=== PATIENT | female | born 1990 | race Caucasian/White ===

== ENCOUNTER 2020-10-18 15:09 | Outpatient (REF) | payer OTHER, SELFPAY ==
--- NOTE | 2020-10-18 15:28 | XR_ITS ---
EXAMINATION:XR foot RT min 3V VIEWS ACQUIRED: Frontal lateral and oblique CLINICAL INFORMATION: Reason for Exam M79.673 - Pain in right foot COMPARISON: None available at the time of this dictation. FINDINGS: There is no evidence of acute fracture or dislocation. Intertarsal, tarsometatarsal, metatarsophalangeal and interphalangeal joints are intact. Surrounding soft tissues is normal. , There is a small inferior calcaneal spur. XR/XR foot RT min 3V IMPRESSION: Small inferior calcaneal spur, x-ray otherwise normal.
== END 2020-10-18 15:10 | disposition home or self-care (01) ==
LOC: HO.HMGCX 15:09
PROVIDERS: PCP Internal Medicine; Visit Provider Internal Medicine
DX: M79.671 Pain in right foot (principal)
CPT/HCPCS: 73630

== ENCOUNTER 2020-12-31 14:00 | Emergency (ER) | payer OTHER, SELFPAY ==
--- NOTE | ~2020-12-31 | XR_ITS ---
EXAMINATION: CHEST 2 VIEWS CLINICAL INFORMATION: pt c dizziness, blurry vision left body numbness . COMPARISON: No recent pertinent prior studies are available for comparison. TECHNIQUE: PA and lateral views of the chest obtained. FINDINGS: The lungs are well expanded. No focal infiltrate, effusion, edema, or pneumothorax. Cardiac and mediastinal silhouettes are within normal limits for technique. No acute bony abnormality seen XR/XR chest 2V IMPRESSION: No evidence of acute disease
--- NOTE | ~2020-12-31 | CT_ITS ---
EXAMINATION: CT HEAD WITHOUT CONTRAST CLINICAL INFORMATION: Dizziness. Blurred vision. Numbness left side of body COMPARISON: None TECHNIQUE: Contiguous axial imaging was performed from the skull base to vertex without intravenous administration of contrast. Coronal and sagittal reformatted images are performed at CT scanner This CT examination was performed using dose optimization techniques as appropriate, variously including the following: *Automated exposure control *Adjustment of mA and/or kV according to patient size (this includes techniques or standardized protocols for targeted exams where dose is matched to indication/reason for exam; i.e. extremities or head) *Use of iterative reconstruction technique DLP: 665 mGy-cm FINDINGS: There is no evidence of acute intracranial hemorrhage or territorial infarction. No abnormal mass effect or midline shift is seen. Bridges to white matter differentiation is well preserved. No extra-axial fluid collections are identified. The ventricles are normal in size. There is no abnormal attenuation within the brain parenchyma. The osseous structures and soft tissues are normal. The mastoid air cells and visualized portions of the paranasal sinuses are well aerated. CT/CT head/brain wo con IMPRESSION: No acute intracranial pathology.
[2020-12-31 15:08] VITALS: BP 104/72; PULSE 58; RESP 18; TEMP 36.9; O2SAT 100; BMI 34.4
[2020-12-31 16:05] LABS: MANUAL DIFF FLAG NO
[2020-12-31 16:07] LABS: Glucose Urine UA NEG (NEG); Leukocyte Esterase Urine NEG (NEG); Nitrite Urine NEG (NEG); PH 6.5 (5.0-8.0); Specific Gravity - Urine 1.015 (1.005-1.025); Urine Blood 3+ (NEG); Urine Ketones 15 MG/DL (NEG); Urine Protein NEG (NEG-TRACE)
[2020-12-31 16:09] LABS: Basophils Percent Auto 0.6 % (0-2); Eosinophils Absolute Auto 0.4 X10*3/uL (0.0-0.4); Eosinophils Percent Auto 6.1 % (0-4); Hematocrit 41.1 % (37-47); Hemoglobin 13.8 g/dl (12.0-16.0); Imm Gran Abs Auto 0.01 X10*3/uL (0.00-0.03); Imm Gran Pct Auto 0.2 % (0.0-0.4); Lymphocytes Absolute Auto 2.3 X10*3/uL (1.2-4.9); Lymphocytes Percent Auto 36.5 % (20-40); Mean Corpuscular HGB Conc 33.6 g/dl (31.0-35.0); Mean Corpuscular Hemoglobin 30.5 pg (27.0-33.0); Mean Corpuscular Volume 90.7 fL (80-98); Mean Platelet Volume 9.4 fL (9.4-12.3); Monocytes Absolute Auto 0.5 X10*3/uL (0.1-1.2); Monocytes Percent Auto 8.3 % (2-11); Neutrophils Absolute Auto 3.1 X10*3/uL (2.0-8.3); Neutrophils Percent Auto 48.3 % (45-73); Platelet Count 353 X10*3/uL (160-400); Red Blood Count 4.53 X10*6/uL (4.20-5.50); Red Cell Distribution Width 11.8 % (11.0-16.0); White Blood Count 6.4 X10*3/uL (4.8-10.8)
[2020-12-31 16:13] LABS: Appearance Urine CLEAR; Color Urine YELLOW
[2020-12-31 16:14] LABS: UPreg QC Valid YES; Urine Pregnancy NEGATIVE (NEGATIVE)
[2020-12-31 16:21] LABS: Bacteria Urine TRACE /LPF; Mucus Urine TRACE /LPF; RBC Urine 30-49 /HPF (0); Squamous Epithelial Cell Urine TRACE /LPF; WBC Urine 0-2 /HPF (0-4)
[2020-12-31 16:33] LABS: Anion Gap 14 (12-20); Blood Urea Nitrogen 8 mg/dL (9-16); Calcium 9.4 mg/dL (8.4-10.2); Carbon Dioxide 25 mmol/L (22-29); Chloride 106 mmol/L (96-108); Creatinine Clr Calc Pharmacy 132.9; Estimated Glomerular Filt Rate > 60; Glucose Random 96 mg/dL (60-115); Sodium 141 mmol/L (135-145)
[2020-12-31 17:50] VITALS: BP 109/62; PULSE 60; RESP 18; TEMP 37; O2SAT 99
[2020-12-31 18:23] LABS: INTERNATIONAL NORM RATIO 1.1 (0.9-1.1); Prothrombin Time 12.9 SEC (10.8-13.0)
[2020-12-31] MEDS: Meclizine HCl 25 MG TABLET 50 MG PO (18:36)
[2020-12-31 18:48] LABS: Alanine Aminotransferase 43 U/L (0-31); Albumin Level 4.2 g/dL (3.5-5.0); Alkaline Phosphatase 47 U/L (39-117); Aspartate Amino Transferase 23 U/L (5-31); Bilirubin Direct 0.2 mg/dL (0.0-0.5); Bilirubin Total 0.6 mg/dL (0.0-1.0); Magnesium 1.9 mg/dL (1.6-2.6)
[2020-12-31 18:51] LABS: Troponin-I High Sensitivity < 3.5 ng/L (<3.5-17.0)
--- NOTE | 2020-12-31 20:04 | ED_ITS ---
HPI - Dizziness General Chief Complaint: Dizziness Stated Complaint: BLURRED VISION DIZZY L SIDE NUMBNESS Time Seen by Provider: 12/31/20 17:34 Source: patient Mode of arrival: ambulatory Limitations: no limitations History of Present Illness HPI Narrative: 30-year-old female with a past medical history of anxiety d isorder and obesity presenting to the ED with complaints of dizziness that started approximately 07:00 with associated blurry vision and left-sided body numbness. Patient reports that the blurry vision and the left-sided body numbness has resolved although she continues to have the dizziness where she feels like she is spinning and the room is completely spinning. She denies any family history of sudden /mi or CVA before the age of 40 to 50 years old. MD elicited complaint: dizziness Onset (ago): hour(s) (Since 07:00 this morning) Timing: gradual onset Severity: moderate Description: sense of movement (Patient feels that she is spinning) and room spinning History of similar symptoms: No Exacerbating factors: movement/ambulation, change in body position, standing and other (Changing head position) Relieving factors: remaining still, rest, lying down and keeping eyes closed Associated neuro symptoms: vision changes (Blurry vision) and other (Left-sided body numbness) Stroke scale total: 0 Related Data Previous Rx's Medication Instructions Recorded desonide 0.05 % topical ointment 1 appl TOPICAL BID 30 Days #60 g 09/14/20 ketorolac 10 mg PO Q8H PRN #10 tab 12/31/20 meclizine 25 mg PO DAILY PRN #10 tab 12/31/20 ondansetron HCl [Zofran] 4 mg PO Q8H PRN #14 tab 12/31/20 oxycodone 5 mg PO BID PRN #10 tab 12/31/20 Allergies Allergy/AdvReac Type Severity Reaction Status Date / Time FRUIT Allergy Mild ITCHING OF Uncoded 12/03/20 17:20 LIPS AND TONGUE, ONLY SOME FRUITS Review of Systems Review of Systems: Constitutional : No Fever, No Chills, No Night Sweats, No Fatigue, No Malaise ENT/Mouth : No Ear Pain, No Nasal Congestion, No Sinus Pain, No sore throat, No Rhinorrhea Eyes: + Blurry Vision, No Eye Pain, No Swelling, No Redness, No Foreign Body, No Discharge Cardiovascular : No Chest Pain, No SOB, No Dyspnea on Exertion, No Orthopnea, No Palpitations Respiratory : No Cough, No Sputum, No Wheezing, No Dyspnea Gastrointestinal : No Nausea, No Vomiting, No Diarrhea, No Constipation, No abdominal Pain, No Hematochezia, No Melena Genitourinary : No Dysuria, No Urinary Frequency, No Urinary Incontinence, No Urgency, No Flank Pain Musculoskeletal : No joint pain, No Myalgias Skin : No lacerations Neuro : + Dizziness, + Numbness, No Focal weakness, No Loss of Consciousness, No Headache Yes all other systems are reviewed and are negative [facility] Past Medical History Attestation statement: The following information was validated with the patient. Medical History Breast cancer screening by mammogram Ductal candidiasis of breast Eczema Obesity Rash and nonspecific skin eruption Rash on lips Surgical History History of cholecystectomy History of lipoma Family History Family History Father Diabetes Hypertension Mother Medical history unknown Maternal Grandfather Stroke Social History Social History Alcohol intake: current Alcohol intake frequency: a few times a month Smoking Status: Former smoker Smoked in Last 30 Days: No Use of substances other than those prescribed or required for medical reasons: No Advance Directives: No Advance Directives Information Provided: No Physical Exam Vital Signs: Vital Signs: Last Vital Signs Temp 98.6 F 12/31/20 17:50 Pulse 60 12/31/20 17:50 Resp 18 12/31/20 17:50 BP 109/62 12/31/20 17:50 Pulse Ox 99 12/31/20 17:50 Body Mass Index 34.4 Vital signs have been reviewed as normal and appeared to be correct. Blood pressure normal. Heart rate normal. Respiration rate normal. Temperature normal. Oxygen saturation normal. Appearance: Alert. Oriented X3. No acute distress. Head: Normal external exam. Normocephalic. Atraumatic. Able to rotate head princess aterally. Eyes: PERRLA. EOMI. No nystagmus noted. Conjunctiva and sclera normal. Eyelids normal. Corneal reflex normal. ENT: EAC normal. TM's Normal. Hearing normal. Pharynx normal. Uvula midline. tongue midline. Moist mucous membranes. No trismus noted. No drooling noted. No muffled voice noted. No nystagmus noted. Neck: Normal inspection. Neck supple. FROM. No adenopathy. Trachea midline. Thyroid Normal. No meningeal signs. No neck mass noted. CVS: Normal heart rate and rhythm. Heart sound normal. No murmurs noted. Pulses normal throughout. Respiratory: No respiratory distress. Painless inspiration. Breath sounds normal. No wheezes/rales/rhonchi noted. Chest nontender. No accessory muscle usage noted or decreased air movement noted. Abdomen: Soft and nontender. Bowel sounds normal in all 4 quadrants. No distention noted. No organomegaly noted. No visible injury noted. Back: No CVA tenderness. Full range of motion noted. Skin: Skin warm and dry. Normal skin color. Normal skin turgor. No rashes/lesions/lacerations noted. Extremities: No lower extremity edema. Extremities exhibit normal range of motion. Extremities nontender. Able to shrug shoulders bilaterally and keep up against resistance. Neuro: Oriented X 3. No motor deficit. No sensory deficit. Reflexes normal. Moving all extremities. No focal motor deficits. Cranial nerves II-XI intact bilaterally. Facial strength normal. Normal cognition. Speech normal. Gait normal. Strength 5/5 throughout. No pronator drift. No tremor noted. No fasciculations noted. No rigidity noted. Muscle tone normal throughout. No asterixis noted. [id number] test normal. Heel to jauregui test normal. Tandem gait normal. Does not sway with eyes open. Romberg test negative. Rapid alternating movement upper extremity normal. Rapid alternating movement lower extremity normal. Hand drop from overhead Misses face. NIHSS score 0. NIH Stroke Scale Internal: Initial- Upon Arrival Time: 17:50 Level of Consciousness: Alert Level of Consciousness Questions: Answers both questions correctly Level of Consciousness Commands: Performs both tasks correctly Best Gaze: Normal Visual: No visual loss Facial Palsy: Normal Motor Arm (Right): No drift Motor Arm (Left): No drift Motor Leg (Right): No drift Motor Leg (Left): No drift Limb Ataxia: Absent Sensory: Normal Best Language: No aphasia Dysarthia: Normal Extinction and Inattention: No abnormality Score: 0 Course Course Course Narrative: 17:50pm - 30-year-old female with a past medical history of anxiety disorder and obesity presenting to the ED with complaints of dizziness that started approximately 07:00 with associated blurry vision and left-sided body numbness. - on exam patient is alert and oriented x3. On any acute distress. Vital signs are stable within normal limits. No focal neuro deficits are noted. NIH SS score 0. No focal neuro deficits are noted and patient has non disabling symp toms and symptoms started at approximately 07:00 therefore no tPA indicated at this time. Lungs clear to auscultation. CV RRR. Abdomen soft and nontender. - Plan: Labs, EKG, orthostatic vitals, CT scan of brain, chest x-ray provided 50 mg of Antivert and re-evaluate. Reevaluation(s) Reevaluation #1: - all labs within normal limits. UA within normal limits no evidence of UTI. UHCG negative for . - EKG sinus bradycardia with a ventricular rate of 48 with a normal SD interval normal QRS duration normal QT/QTC interval. No acute ischemic changes noted. - chest x-ray within normal limits no acute processes noted. - pending CT scan of brain without contrast. Will re-evaluate. Time: 20:13 Reevaluation #2: - CT scan of brain within normal limits no acute processes noted. - the patient was upset with her care reported that she asked the nurse multiple times for something for her headache although the nurse did not tell me that she wanted something for her headache therefore went back into the room and explained to her what I can do to make her time here in the emergency department any better if any IV fluids or anything to eat and patient was just very adamant that she wanted to leave. The nurse also reported to me that the nancy ent has been declining orthostatic vitals. She reports her dizziness was not better after the meclizine although patient again has a normal steady gait and no focal neuro deficits are noted. No disabling symptoms. - therefore will DC home with symptomatic treatment along with instructions return if any new or worsening symptoms to follow up with primary care provider. Patient understands agrees the plan. Time: 21:08 MDM - Dizziness Differential Diagnosis Differential diagnosis: Likely benign paroxysmal positional vertigo, orthostatic hypotension, cerebrovascular accident and transient cerebral ischemia Medical Records Attestation: I reviewed the patient's medical records. Lab Data Attestation: I reviewed the patient's lab results. Result diagrams: 12/31/20 15:59 12/31/20 16:00 Labs: Lab Results 12/31/20 12/31/20 12/31/20 Range/Units 15:59 16:00 16:00 WBC 6.4 (4.8-10.8) X10*3/uL RBC 4.53 (4.20-5.50) X10*6/uL Hgb 13.8 (12.0-16.0) g/dl Hct 41.1 (37-47) % MCV 90.7 (80-98) fL MCH 30.5 (27.0-33.0) pg MCHC 33.6 (31.0-35.0) g/dl RDW 11.8 (11.0-16.0) % Plt Count 353 (160-400) X10*3/uL MPV 9.4 (9.4-12.3) fL Immature Gran % (Auto) 0.2 (0.0-0.4) % Neut % (Auto) 48.3 (45-73) % Lymph % (Auto) 36.5 (20-40) % [place] % (Auto) 8.3 (2-11) % Eos % (Auto) 6.1 H (0-4) % Baso % (Auto) 0.6 (0-2) % Lymph # (Auto) 2.3 (1.2-4.9) X10*3/uL [place] # (Auto) 0.5 (0.1-1.2) X10*3/uL Eos # (Auto) 0.4 (0.0-0.4) X10*3/uL Baso # (Auto) 0.0 (0.0-0.2) X10*3/uL Abs Immat Gran (auto) 0.01 (0.00-0.03) X10*3/uL Absolute Neuts (auto) 3.1 (2.0-8.3) X10*3/uL Absolute Nucleated RBC 0.000 (0.0-0.012) X10*3/uL Nucleated RBC % (auto) 0.0 (0.0-0.2) /100WBC PT (10.8-13.0) SEC INR (0.9-1.1) Sodium 141 (135-145) mmol/L Potassium 4.0 (3.3-5.1) mmol/L Chloride 106 (96-108) mmol/L Carbon Dioxide 25 (22-29) mmol/L Anion Gap 14 (12-20) BUN 8 L (9-16) mg/dL Creatinine 0.72 (0.5-1.4) mg/dL Estim Creat Clear Calc 132.9 Estimated GFR > 60 Random Glucose 96 (60-115) mg/dL Calcium 9.4 (8.4-10.2) mg/dL Magnesium (1.6-2.6) mg/dL Total Bilirubin (0.0-1.0) mg/dL Direct Bilirubin (0.0-0.5) mg/dL AST (5-31) U/L ALT (0-31) U/L Alkaline Phosphatase (39-117) U/L Troponin I High Sens (<3.5-17.0) ng/L Total Protein (6.5-8.0) g/dL Albumin (3.5-5.0) g/dL Urine Color YELLOW Urine Appearance CLEAR Urine pH 6.5 (5.0-8.0) Ur Specific Kimberly 1.015 (1.005-1.025) Urine Protein NEG (NEG-TRACE) MG/DL Urine Glucose (UA) NEG (NEG) MG/DL Urine Ketones 15 (NEG) MG/DL Urine Blood 3+ H (NEG) Urine Nitrite NEG (NEG) Ur Leukocyte Esterase NEG (NEG) Urine RBC 30-49 H (0) /HPF Urine WBC 0-2 (0-4) /HPF Ur Squamous Epith Cells TRACE /LPF Urine Bacteria TRACE /LPF Urine Mucus TRACE /LPF Urine Test (NEGATIVE) 12/31/20 12/31/20 12/31/20 Range/Units 16:00 18:05 18:05 WBC (4.8-10.8) X10*3/uL RBC (4.20-5.50) X10*6/uL Hgb (12.0-16.0) g/dl Hct (37-47) % MCV (80-98) fL MCH (27.0-33.0) pg MCHC (31.0-35.0) g/dl RDW (11.0-16.0) % Plt Count (160-400) X10*3/uL MPV (9.4-12.3) fL Immature Gran % (Auto) (0.0-0.4) % Neut % (Auto) (45-73) % Lymph % (Auto) (20-40) % [place] % (Auto) (2-11) % Eos % (Auto) (0-4) % Baso % (Auto) (0-2) % Lymph # (Auto) (1.2-4.9) X10*3/uL [place] # (Auto) (0.1-1.2) X10*3/uL Eos # (Auto) (0.0-0.4) X10*3/uL Baso # (Auto) (0.0-0.2) X10*3/uL Abs Immat Gran (auto) (0.00-0.03) X10*3/uL Absolute Neuts (auto) (2.0-8.3) X10*3/uL Absolute Nucleated RBC (0.0-0.012) X10*3/uL Nucleated RBC % (auto) (0.0-0.2) /100WBC PT (10.8-13.0) SEC INR (0.9-1.1) Sodium (135-145) mmol/L Potassium (3.3-5.1) mmol/L Chloride (96-108) mmol/L Carbon Dioxide (22-29) mmol/L Anion Gap (12-20) BUN (9-16) mg/dL Creatinine (0.5-1.4) mg/dL Estim Creat Clear Calc Estimated GFR Random Glucose (60-115) mg/dL Calcium (8.4-10.2) mg/dL Magnesium 1.9 (1.6-2.6) mg/dL Total Bilirubin 0.6 (0.0-1.0) mg/dL Direct Bilirubin 0.2 (0.0-0.5) mg/dL AST 23 (5-31) U/L ALT 43 H (0-31) U/L Alkaline Phosphatase 47 (39-117) U/L Troponin I High Sens < 3.5 (<3.5-17.0) ng/L Total Protein 7.0 (6.5-8.0) g/dL Albumin 4.2 (3.5-5.0) g/dL Urine Color Urine Appearance Urine pH (5.0-8.0) Ur Specific Kimberly (1.005-1.025) Urine Protein (NEG-TRACE) MG/DL Urine Glucose (UA) (NEG) MG/DL Urine Ketones (NEG) MG/DL Urine Blood (NEG) Urine Nitrite (NEG) Ur Leukocyte Esterase (NEG) Urine RBC (0) /HPF Urine WBC (0-4) /HPF Ur Squamous Epith Cells /LPF Urine Bacteria /LPF Urine Mucus /LPF Urine Test NEGATIVE (NEGATIVE) 12/31/20 Range/Units 18:05 WBC (4.8-10.8) X10*3/uL RBC (4.20-5.50) X10*6/uL Hgb (12.0-16.0) g/dl Hct (37-47) % MCV (80-98) fL MCH (27.0-33.0) pg MCHC (31.0-35.0) g/dl RDW (11.0-16.0) % Plt Count (160-400) X10*3/uL MPV (9.4-12.3) fL Immature Gran % (Auto) (0.0-0.4) % Neut % (Auto) (45-73) % Lymph % (Auto) (20-40) % [place] % (Auto) (2-11) % Eos % (Auto) (0-4) % Baso % (Auto) (0-2) % Lymph # (Auto) (1.2-4.9) X10*3/uL [place] # (Auto) (0.1-1.2) X10*3/uL Eos # (Auto) (0.0-0.4) X10*3/uL Baso # (Auto) (0.0-0.2) X10*3/uL Abs Immat Gran (auto) (0.00-0.03) X10*3/uL Absolute Neuts (auto) (2.0-8.3) X10*3/uL Absolute Nucleated RBC (0.0-0.012) X10*3/uL Nucleated RBC % (auto) (0.0-0.2) /100WBC PT 12.9 (10.8-13.0) SEC INR 1.1 (0.9-1.1) Sodium (135-145) mmol/L Potassium (3.3-5.1) mmol/L Chloride (96-108) mmol/L Carbon Dioxide (22-29) mmol/L Anion Gap (12-20) BUN (9-16) mg/dL Creatinine (0.5-1.4) mg/dL Estim Creat Clear Calc Estimated GFR Random Glucose (60-115) mg/dL Calcium (8.4-10.2) mg/dL Magnesium (1.6-2.6) mg/dL Total Bilirubin (0.0-1.0) mg/dL Direct Bilirubin (0.0-0.5) mg/dL AST (5-31) U/L ALT (0-31) U/L Alkaline Phosphatase (39-117) U/L Troponin I High Sens (<3.5-17.0) ng/L Total Protein (6.5-8.0) g/dL Albumin (3.5-5.0) g/dL Urine Color Urine Appearance Urine pH (5.0-8.0) Ur Specific Kimberly (1.005-1.025) Urine Protein (NEG-TRACE) MG/DL Urine Glucose (UA) (NEG) MG/DL Urine Ketones (NEG) MG/DL Urine Blood (NEG) Urine Nitrite (NEG) Ur Leukocyte Esterase (NEG) Urine RBC (0) /HPF Urine WBC (0-4) /HPF Ur Squamous Epith Cells /LPF Urine Bacteria /LPF Urine Mucus /LPF Urine Test (NEGATIVE) Imaging Data Chest x-ray: Attestation: I personally reviewed and interpreted this imaging study as follows: Radiologist's impression: FINDINGS: The lungs are well expanded. No focal infiltrate, effusion, edema, or pneumothorax. Cardiac and mediastinal silhouettes are within normal limits for technique. No acute bony abnormality seen XR/XR chest 2V IMPRESSION: No evidence of acute disease CT scan of brain without contrast: Attestation: I personally reviewed and interpreted this imaging study as follows: Radiologist's impression: FINDINGS: There is no evidence of acute intracranial hemorrhage or territorial infarction. No abnormal mass effect or midline shift is seen. Bridges to white matter differentiation is well preserved. No extra-axial fluid collections are identified. The ventricles are normal in size. There is no abnormal attenuation within the brain parenchyma. The osseous structures and soft tissues are normal. The mastoid air cells and visualized portions of the paranasal sinuses are well aerated. CT/CT head/brain wo con IMPRESSION: No acute intracranial pathology. ECG Data Attestation: I personally reviewed and interpreted this ECG as follows: ECG interpretation date: 12/31/20 ECG interpretation time: 18:06 Interpretation: EKG sinus bradycardia with a ventricular rate of 48 with a normal SD interval normal QRS duration normal QT/QTC interval. No acute ischemic changes noted. Critical Care Time Critical Care Time Critical Care Time: Yes Total Critical Care Time: 60 Attestation: I personally attest to this time spent taking care of the patient Discharge Plan Discharge Clinical Impression: Dizziness Patient Disposition: Home, Self-Care Instructions: Benign Paroxysmal Positional Vertigo (ED), Dizziness (ED) Prescriptions: New ondansetron HCl [Zofran] 4 mg tablet 4 mg PO Q8H PRN (Reason: nausea and vomiting) Qty: 14 RF: 0 ketorolac 10 mg tablet 10 mg PO Q8H PRN (Reason: pain) Qty: 10 RF: 0 meclizine 25 mg tablet 25 mg PO DAILY PRN (Reason: dizziness) Qty: 10 RF: 0 oxycodone 5 mg tablet 5 mg PO BID PRN (Reason: pain) Qty: 10 RF: 0 No Action desonide 0.05 % ointment 1 appl topical BID 30 Days Qty: 60 RF: 11 Referrals: Raquel Sousa MD [Primary Care Provider] - 2 days Stand Alone Forms: Work/School Release Print Language: Yoruba
[2020-12-31] MEDS: Ketorolac Tromethamine 30 MG/ML VIAL IM (21:00)
--- NOTE | 2020-12-31 21:32 | PC.NURSE ---
late entry: multiple attempts made to obtain ortho static vs by this rn and ERT. Patient refuses i've been here since one pm and this is bullshit that you guys havent done anything for me. pt educated to triage priority and imaging/blood work and other ancillary orders that had been done for patient. pt refusing to listen. Pt continues to express displeasure regarding care and yelling at staff and providers. pt offered snacks and to include treatment here. Patient refused to consume applesauce, crackers and juice It will fuck up my keto, I'm not going eat that. pt offered water and tolerated well post zofran and torodol administration. Plan of care for d/c because patient refuses to participate in additional care including orthostatic vs. No issues ambulating to desk to scream at providers.
[2020-12-31] MEDS: oxyCODONE HCl Immed Release 5 MG TABLET PO (21:44)
== END 2020-12-31 21:51 | disposition home or self-care (01) ==
PROVIDERS: Physician Assistant Medical; Emergency Provider Internal Medicine; PCP Internal Medicine
DX: R42 Dizziness and giddiness (principal)
CPT/HCPCS: 36415; 70450; 71046; 80048; 80076; 81001; 81025; 83735; 84484; 85025; 85610; 96360; 96372; 99284; 99291; J1885

== ENCOUNTER 2021-01-08 12:21 | Outpatient (REF) | payer OTHER, SELFPAY ==
--- NOTE | ~2021-01-08 | MM_ITS ---
EXAMINATION: MM DIAGNOSTIC DIGITAL BREAST TOMOSYNTHESIS, BILATERAL BILATERAL BREAST ULTRASOUND CLINICAL INFORMATION: Left breast pain and skin peeling around areolar region. The lifetime risk of breast cancer based on the Tyrer-Cuzick Model is 9.4%. COMPARISON: Mammography: None. TECHNIQUE: Digital breast tomosynthesis is performed in both the craniocaudal and mediolateral oblique views along with computer-aided detection (CAD). Synthesized 2D images are generated from the tomosynthesis. Additional spot magnification views of the right breast in craniocaudal and 90 degree mediolateral views performed. Bilateral targeted breast ultrasound. FINDINGS: The breasts are heterogeneously dense, which may obscure small masses (ACR BI-RADS breast composition Category c). There is an indeterminate grouping of calcifications seen within the upper outer aspect of the right breast approximately 4.5 cm from the nipple for which stereotactic core biopsy is recommended. Within the upper outer aspect of the right breast approximately 5 cm from the nipple there is a circumscribed 7 x 6 mm density without spiculation or calcifications. About the deep upper outer aspect of the left breast there is a well-circumscribed 7 mm density approximately 9 cm from the nipple. Right breast ultrasound: At the 10 o'clock position 5 cm from nipple there is a minimally complex cyst measuring approximately 5 x 5 x 2 mm in size. No suspicious solid mass or region of abnormal distal sound shadowing identified. Left breast ultrasound: At the 2 o'clock position approximately 9 cm from the nipple there is a simple cyst with smooth back wall and increased through sound transmission measuring approximately 6 mm in diameter. No retroareolar abnormality is appreciated and no edematous change within the skin or parenchyma is seen. Results are discussed with the patient at time of visit. MM/MM tomosynthesis diagnostic BI IMPRESSION: Indeterminate grouping of calcifications about the upper outer aspect of the right breast for which stereotactic core biopsy is recommended. Bilateral breast cysts. ASSESSMENT: BI-RADS 4: Suspicious RECOMMENDATION: Stereotactic core biopsy grouping of right breast calcifications. The above recommendation was discussed with the patient at time of study. Breast center navigator called report to referring provider's office.
--- NOTE | ~2021-01-08 | US_ITS ---
EXAMINATION: US DIAGNOSTIC ULTRASOUND BREAST, LEFT CLINICAL INFORMATION: Imaging rash around the nipple and circumscribed density upper outer aspect.. COMPARISON: June 24, 2018 TECHNIQUE: Ultrasound of the breast is performed with real-time blue scale imaging and color Doppler. FINDINGS: Right breast ultrasound: At the 10:00 position 5 cm from nipple there is a minimally complex cyst measuring approximately 5 x 5 x 2 mm in size. No suspicious solid mass or region of abnormal distal sound shadowing identified. Left breast ultrasound: At the 2:00 position approximately 9 cm from the nipple there is a simple cyst with smooth back wall and increased through sound transmission measuring approximately 6 mm in diameter. No retroareolar abnormality is appreciated and no edematous change within the skin or parenchyma seen. Results are discussed with the patient at time of visit. US/US breast LT limited IMPRESSION: Indeterminate grouping of calcifications about the upper outer aspect of the right breast for which stereotactic core biopsy is recommended. Bilateral breast cysts. ASSESSMENT: BI-RADS 4: Suspicious RECOMMENDATION: Stereotactic core biopsy grouping of right breast calcifications.
--- NOTE | ~2021-01-08 | US_ITS ---
EXAMINATION: US DIAGNOSTIC ULTRASOUND BREAST, RIGHT CLINICAL INFORMATION: Right breast density upper outer quadrant.. COMPARISON: None. TECHNIQUE: Ultrasound of the breast is performed with real-time blue scale imaging and color Doppler. FINDINGS: Right breast ultrasound: At the 10:00 position 5 cm from nipple there is a minimally complex cyst measuring approximately 5 x 5 x 2 mm in size. No suspicious solid mass or region of abnormal distal sound shadowing identified. Left breast ultrasound: At the 2:00 position approximately 9 cm from the nipple there is a simple cyst with smooth back wall and increased through sound transmission measuring approximately 6 mm in diameter. No retroareolar abnormality is appreciated and no edematous change within the skin or parenchyma seen. Results are discussed with the patient at time of visit. US/US breast RT limited IMPRESSION: Indeterminate grouping of calcifications about the upper outer aspect of the right breast for which stereotactic core biopsy is recommended. Bilateral breast cysts. ASSESSMENT: BI-RADS 4: Suspicious RECOMMENDATION: Stereotactic core biopsy grouping of right breast calcifications.
== END 2021-01-08 12:22 | disposition home or self-care (01) ==
LOC: HO.MAMMO 12:21
PROVIDERS: Visit Provider Nurse Practitioner Family
DX: N64.4 Mastodynia (principal); R21 Rash and other nonspecific skin eruption
CPT/HCPCS: 76642; 77062; 77066

== ENCOUNTER 2021-01-15 10:26 | Outpatient (REF) | payer OTHER, SELFPAY ==
--- NOTE | ~2021-01-15 | MM_ITS ---
EXAMINATION: STEREOTACTIC TOMOSYNTHESIS-GUIDED VACUUM-ASSISTED BREAST BIOPSY, RIGHT SPECIMEN RADIOGRAPH, RIGHT POST PROCEDURE DIGITAL BREAST TOMOSYNTHESIS, RIGHT CLINICAL INFORMATION: 30-year-old with grouped heterogeneous coarse calcifications anterior upper outer right breast noted at baseline diagnostic exam for contralateral left breast pain. No known family history breast cancer. TC score 9%. COMPARISON: Mammography and ultrasound breast 01/08/2021. TECHNIQUE/PROCEDURE: Informed consent was obtained from the patient after discussion of the benefits, risks, and alternatives to biopsy today. Patient appeared to understand. Gave opportunity for questions. Patient signed consent form. BIOPSY TABLE: [facility] [employer]one Biopsy System. LESION: Tightly grouped heterogeneous coarse calcifications anterior upper outer breast. LOCAL ANESTHESIA: 8 mL 1% lidocaine; 11 mL 1% lidocaine with epinephrine. DERMATOTOMY: Single skin sadie dermatotomy performed. NEEDLE: Cardiostrongiva 9-gauge vacuum assisted core biopsy device. APPROACH: lateral medial. TARGETING: Digital breast tomosynthesis used for targeting. CORES: 7. CLIP: Wo[employer]Mark T-shaped marker. SPECIMEN RADIOGRAPH: Specimen radiograph is taken in separate room using digital mammography. The index calcifications are in the excised cores. There are over 40 calcifications in the cores. POST PROCEDURE DIGITAL BREAST TOMOSYNTHESIS, RIGHT: The post biopsy mammogram is performed in separate room using separate digital breast tomosynthesis equipment from the biopsy procedure. CC and ML views are obtained. Synthesized 2-D images are generated from the tomography. There are scattered areas of fibroglandular density (breast composition category: b). Breast tissue composition borders on heterogeneously dense. The clip marker is in position. The calcifications are markedly decreased at the biopsy site and no longer clearly visualized. No gross hematoma. The patient tolerated the procedure well. No immediate complications. Home instructions reviewed with the patient. Final pathology results are pending. MM/MM stereotactic biopsy RT IMPRESSION: 1. Digital tomosynthesis-guided core biopsy right breast with clip placement. 2. Specimen radiograph taken and post procedure mammogram. There is satisfactory positioning of the biopsy clip. 3. Final pathology results pending. An addendum report will be issued.
== END 2021-01-15 10:27 | disposition home or self-care (01) ==
LOC: HO.MAMMO 10:26
PROVIDERS: Visit Provider Surgery
DX: R92.1 Mammographic calcification found on diagnostic imaging of breast (principal); D05.11 Intraductal carcinoma in situ of right breast; Z17.0 Estrogen receptor positive status [ER+]; Z87.891 Personal history of nicotine dependence; Z91.018 Allergy to other foods; Z79.899 Other long term (current) drug therapy
CPT/HCPCS: 19081; 88305; 88341; 88342; 88360; 99202

== ENCOUNTER 2021-01-15 22:50 | Emergency (ER) | payer OTHER, SELFPAY ==
[2021-01-15 23:25] VITALS: BP 125/71; PULSE 68; RESP 20; TEMP 36.6; O2SAT 98; BMI 32.5
[2021-01-16 00:40] LABS: Glucose Urine UA NEG (NEG); Leukocyte Esterase Urine NEG (NEG); Nitrite Urine NEG (NEG); PH 6.5 (5.0-8.0); Specific Gravity - Urine 1.025 (1.005-1.025); Urine Blood TRACE (NEG); Urine Ketones 15 MG/DL (NEG); Urine Protein NEG (NEG-TRACE)
[2021-01-16 00:43] LABS: Appearance Urine CLEAR; Color Urine YELLOW
[2021-01-16 00:44] LABS: UPreg QC Valid YES; Urine Pregnancy NEGATIVE (NEGATIVE)
[2021-01-16 00:49] LABS: Bacteria Urine 2+ /LPF; Mucus Urine 1+ /LPF; Squamous Epithelial Cell Urine 1+ /LPF
[2021-01-16 02:00] VITALS: BP 104/63; PULSE 55; RESP 16; O2SAT 99
--- NOTE | 2021-01-16 02:07 | ED.SOB ---
HPI - SOB/Dyspnea General Chief Complaint: Dyspnea Stated Complaint: SOB Time Seen by Provider: 01/15/21 23:56 Source: patient Mode of arrival: ambulatory History of Present Illness HPI Narrative: This is a 30-year-old female who presents with shortness of breath at denies any dizziness, diaphoresis, chest pain/palpitations, nausea, recent travel and patient notes that she underwent a right breast biopsy today. In addition, patient denies any recent fevers, chills, cough and endorses she does suffer from anxiety and is in the process of reestablishing visits with her therapist for further discussion. At the time of the interview patient is completely asymptomatic. Related Data Previous Rx's Medication Instructions Recorded desonide 0.05 % topical ointment 1 appl TOPICAL BID 30 Days #60 g 09/14/20 ketorolac 10 mg PO Q8H PRN #10 tab 12/31/20 meclizine 25 mg PO DAILY PRN #10 tab 12/31/20 ondansetron HCl [Zofran] 4 mg PO Q8H PRN #14 tab 12/31/20 oxycodone 5 mg PO BID PRN #10 tab 12/31/20 hydroxyzine HCl 25 mg PO TID PRN #3 tab 01/16/21 Allergies Allergy/AdvReac Type Severity Reaction Status Date / Time FRUIT Allergy Mild ITCHING OF Uncoded 12/03/20 17:20 LIPS AND TONGUE, ONLY SOME FRUITS Review of Systems Review of Systems: Pertinent positives and negatives as stated in HPI 10 point review of systems is otherwise negative. PMFSH Past Medical History Source: nursing notes reviewed Medical History Breast cancer screening by mammogram Ductal candidiasis of breast Eczema Obesity Rash and nonspecific skin eruption Rash on lips Surgical History History of cholecystectomy History of lipoma Family History Family History Father Diabetes Hypertension Mother Medical history unknown Maternal Grandfather Stroke Social History Social History Alcohol intake: current Alcohol intake frequency: a few times a month Smoking Status: Former smoker Advance Directives: No Physical Exam Vital Signs: Vital Signs: Last Vital Signs Temp 98 F 01/15/21 23:25 Pulse 68 01/15/21 23:25 Resp 20 01/15/21 23:25 BP 125/71 01/15/21 23:25 Pulse Ox 98 01/15/21 23:25 Body Mass Index 32.5 VITAL SIGNS: Reviewed. GENERAL: Well developed, well nourished, in no acute distress. HEAD: Normocephalic/atraumatic, EYES: PERRLA, EOMI EARS: Ext canals without abnormality NOSE: Nares patent bilateral OROPHARYNX: no oral lesions noted, posterior pharynx clear NECK: Supple, no adenopathy LUNGS: Normal breath sounds. No adventitious sounds or accessory muscle use. SpO2<98> CARDIOVASCULAR: Regular rate and rhythm without noted murmurs ABDOMEN: Soft, non-tender, non-distended with bowel sounds. NEUROLOGIC: Alert and oriented x 4. Course Course Course Narrative: This is a 30-year-old female with history and clinical presentation consistent with anxiety. Fall recent lab work completed on 12/31 at last ER visit was reviewed without any significant findings and there are no historical or clinical exam findings to suggest cardiopulmonary etiology for this and doubt PE. Patient was completely asymptomatic at the time of interview and was noted to be resting comfortably in the gurney. She stated that all of her symptoms had subsided and she has plans for contacting her therapist in the morning. Otherwise, patient was discharged in stable condition. MDM - SOB/Dyspnea Lab Data Labs: Lab Results 01/16/21 01/16/21 Range/Units 00:23 00:23 Urine Color YELLOW Urine Appearance CLEAR Urine pH 6.5 (5.0-8.0) Ur Specific [place] 1.025 (1.005-1.025) Urine Protein NEG (NEG-TRACE) MG/DL Urine Glucose (UA) NEG (NEG) MG/DL Urine Ketones 15 (NEG) MG/DL Urine Blood TRACE (NEG) Urine Nitrite NEG (NEG) Ur Leukocyte Esterase NEG (NEG) Urine RBC 1-4 (0) /HPF Urine WBC 1-4 (0-4) /HPF Ur Squamous Epith Cells 1+ /LPF Urine Bacteria 2+ /LPF Urine Mucus 1+ /LPF Urine Test NEGATIVE (NEGATIVE) Discharge Plan Discharge Clinical Impression: Anxiety Patient Disposition: Home, Self-Care Instructions: Anxiety (ED) Additional Instructions: 1. Please resume all home medications as prescribed. 2. Please follow-up with your primary care provider in the next 2-3 days for re-evaluation. Do not hesitate to return to the emergency department should you develop any acute worsening of your symptoms. Prescriptions: New hydroxyzine HCl 25 mg tablet 25 mg PO TID PRN (Reason: anxiety) Qty: 3 RF: 0 No Action desonide 0.05 % ointment 1 appl topical BID 30 Days Qty: 60 RF: 11 ondansetron HCl [Zofran] 4 mg tablet 4 mg PO Q8H PRN (Reason: nausea and vomiting) Qty: 14 RF: 0 ketorolac 10 mg tablet 10 mg PO Q8H PRN (Reason: pain) Qty: 10 RF: 0 meclizine 25 mg tablet 25 mg PO DAILY PRN (Reason: dizziness) Qty: 10 RF: 0 oxycodone 5 mg tablet 5 mg PO BID PRN (Reason: pain) Qty: 10 RF: 0
== END 2021-01-16 02:26 | disposition home or self-care (01) ==
PROVIDERS: Emergency Provider Student in an Organized Health Care Education/Training Program; PCP Internal Medicine
DX: F41.9 Anxiety disorder, unspecified (principal)
CPT/HCPCS: 81001; 81025; 99283; 99284

== ENCOUNTER → 2021-01-21 13:45 | Outpatient (BNVA) | payer OTHER, SELFPAY | PROVIDERS: PCP Internal Medicine; Visit Provider Surgery | DX: D05.11 Intraductal carcinoma in situ of right breast (principal) | CPT/HCPCS: 99212 ==

== ENCOUNTER 2021-01-31 08:51 | Day surgery (SDC) | payer OTHER, SELFPAY ==
[2021-01-30 09:31] VITALS: BMI 32.3
[2021-01-31] VITALS (11 sets, daily range): BP systolic 98–125; BP diastolic 52–73; PULSE 64–96; RESP 16–18; TEMP 36.8–37.3; O2SAT 97–100
--- NOTE | ~2021-01-31 | MM_ITS ---
EXAMINATION: MM MAMMOGRAM GUIDED NEEDLE LOCALIZATION BREAST, RIGHT MM NEEDLE LOCALIZATION SPECIMEN FROM THE RIGHT BREAST CLINICAL INFORMATION: 30-year-old with recent diagnosis DCIS upper outer right breast. COMPARISON: Mammography 01/08/2021, stereotactic biopsy right breast 01/15/2021 TECHNIQUE NEEDLE LOC: Proper informed consent is obtained from the patient after discussion of the procedure, potential risks and complications, and alternatives including declining the procedure today. Patient was given an opportunity for questions. The patient appeared to understand. The patient consented to the procedure and signed the consent form. GUIDANCE: Digital mammography. APPROACH: Cranio-caudal. TARGET: Biopsy clip marker upper outer right breast. ANESTHESIA: lidocaine 1%: 4 mL. LOCALIZATION MARKER: [place] M[employer], 5 cm length. The skin is prepped and local anesthesia administered. The needle is positioned and position assessed with mammography. The wire is hooked into position. Lake needle protector placed. The patient tolerated the procedure well and had no immediate complication. Procedure results called to office ([facility]) for Dr. Montejo. TECHNIQUE SPECIMEN RADIOGRAPH: Imaging of the excised specimen is performed using digital mammography in 2 views. FINDINGS SPECIMEN RADIOGRAPH: The specimen shows the needle and hookwire are delivered intact. The biopsy clip marker is within the specimen adjacent to the localization needle. There are questionable isolated faint calcifications. Results were called to Dr. Kumar Montejo in the operating room at the time of imaging. MM/MM needle loc RT IMPRESSION: 1. Status post right breast needle localization with wire hooked into position. 2. Post operative specimen radiograph obtained.
[2021-01-31 09:40] LABS: UPreg QC Valid YES; Urine Pregnancy NEG (NEGATIVE)
[2021-01-31] MEDS: Lactated Ringers 1,000 ML 100 ML IVCONT (09:51)
--- NOTE | 2021-01-31 10:02 | PC.NURSE ---
pt to radiology for needle loc
--- NOTE | 2021-01-31 10:47 | PC.NURSE ---
pt back from radiology. cone in place to right breast. denies pain. resp easy and reg.
--- NOTE | 2021-01-31 12:18 | HO.ANESPROP2 ---
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) Vertigo (Acute) Anxiety (Acute) Obesity (Acute) Arthralgia (Acute) Foot pain (Acute) Ductal candidiasis of breast (Acute) Rash and nonspecific skin eruption (Acute) Rash on lips (Acute) Breast cancer screening by mammogram (Acute) Eczema (Acute) Past Medical History Medical History Breast cancer screening by mammogram Ductal candidiasis of breast Eczema Obesity Rash and nonspecific skin eruption Rash on lips Family History Family History Father Diabetes Hypertension Mother Medical history unknown Maternal Grandfather Stroke Surgical History Surgical History History of cholecystectomy History of lipoma Social History Social History Alcohol intake: current Alcohol intake frequency: a few times a month Smoking Status: Never smoker Use of substances other than those prescribed or required for medical reasons: No Advance Directives: No Advance Directives Information Provided: Yes Meds Allergies Allergy/AdvReac Type Severity Reaction Status Date / Time FRUIT Allergy Mild ITCHING OF Uncoded 12/03/20 17:20 LIPS AND TONGUE, ONLY SOME FRUITS Active Medications: Current Medications Generic Name Dose Route Start Last Admin Trade Name Freq PRN Reason Stop Dose Admin Lactated Ringer's 1,000 mls @ 50 mls/hr 01/30/21 08:30 Lr IV .Q20H CARLINE Lactated Ringer's 1,000 mls @ 100 mls/hr 01/31/21 09:30 01/31/21 09:51 Lr IVCONT 100 mls/hr .Q10H CARLINE Administration Exam Exam Date and Time: January 31, 2021 1218 Height,Weight and Vital Signs: Height 5 ft 6 in Weight 90.718 kg Last Vital Signs Temp 98.2 F 01/31/21 09:33 Pulse 80 01/31/21 09:33 Resp 18 01/31/21 09:33 BP 120/71 01/31/21 09:33 Pulse Ox 97 01/31/21 09:33 Pertinent Lab Results Pertinent Lab Results: Laboratory Tests 01/31/21 09:15 Urine Test NEG Airway Mallampati Class: I TM Dist: >3cm Neck ROM: Full Assessment and Plan Assessment Anesthesia Assessment: Anesthesia Plan Discussed and Chart Reviewed Final Anesthetic Review NPO: Yes ASA Class: II Final Preanesthetic Review: No Changes in Pt Med Stat, Meds/Allgs Chart Reviewed, Consent Obtained/Reviewed and Anes Risks/Benef Reviewed Patient Risk: Low Procedure Risk: Low Assessment/Block/Sedation in SS: Assess/Block/Sedation-SS Anesthetic Plan Anesthetic Plan: GA Disposition: Standard PACU
--- NOTE | 2021-01-31 13:41 | MHC.SHP ---
Pre-Procedural Eval Section A The patient is an INPATIENT: No Changes since office visit: Yes Patient answered all questions; No Cold of Flu in the past 2 weeks, No New Medical Problems and No Changes in Medication The History & Physical has been completed within 30 days and I have reviewed it.: Yes Section B Chief Complaint: carcinoma in situ Allergies: Allergies Allergy/AdvReac Type Severity Reaction Status Date / Time FRUIT Allergy Mild ITCHING OF Uncoded 12/03/20 17:20 LIPS AND TONGUE, ONLY SOME FRUITS Plan Diagnosis/Plan: Unchanged I have reviewed the history and physical and performed a pertinent physical examination on my patient. No changes have occurred unless specified.
--- NOTE | 2021-01-31 15:39 | P.OP_ITS ---
Operative Note Operative Note Date of Service: 01/31/21 Narrative: Preoperative diagnosis: Ductal carcinoma in situ right breast Postoperative diagnosis: Ductal carcinoma in situ right breast Procedure: Lumpectomy with needle localization right breast Surgeon: Kumar Montejo MD Talent Acquisition Director: None Anesthesia: General LMA Indications for procedure: 30-year-old female patient presenting with a recent mammogram which revealed microcalcifications in the right breast at the upper outer quadrant. Subsequent stereotactic guided core biopsy revealed ductal carcinoma in situ. She presents now for lumpectomy with needle localization. Operative findings: Specimen x-ray confirms marking clip within the specimen. Lesion extends close to the anterior margin on gross evaluation. Wider excision of the anterior margin was performed including skin. Specimen: Lumpectomy right breast, anterior margin right breast Estimated blood loss: 20 mL Complications: None Procedure details: Patient was brought to the OR placed in a supine position. After administering general anesthesia the patient's right breast was prepped with ChloraPrep and draped in a sterile fashion. A surgical time-out was called and the consent confirmed. Patient received preoperative antibiotics and Venodyne boots were in place. Local anesthesia consisting of 0.5% Sensorcaine with epinephrine was then infiltrated in a transverse fashion around the localizing needle. Incision was then made with a scalpel carried out through subcutaneous tissue. Superior and inferior skin flaps were then created. Excision was then performed around the localizing needle extending down well below the needle. The specimen was sent to pathology for further examination and the above findings noted. Anterior margin was then reexcised by including the previous incision in skin in the specimen. This was sent as a permanent specimen. The deep breast tissue was reapproximated using interrupted 3-0 Polysorb sutures. Superficial breast tissue was reapproximated using interrupted 3-0 Polysorb sutures. Dermis was reapproximated using interrupted 3-0 Polysorb sutures. Skin was then closed using a running subcuticular 4-0 Polysorb suture. Steri-Strips 4 x 4 gauze and Tegaderm were then applied. The patient tolerated the procedure well. Sponge, instrument, needle counts were reported as correct. The patient was transferred to PACU in stable condition.
[2021-01-31] MEDS: ondansetron HCL 4 MG/2 ML VIAL IVPUSH (15:59)
[2021-01-31] MEDS: Acetaminophen 325 MG TABLET 650 MG PO (16:10)
[2021-01-31] MEDS: oxyCODONE HCl Immed Release 5 MG TABLET PO (16:11)
[2021-01-31] MEDS: fentaNYL citrate/PF 100 MCG/2 ML VIAL 50 MCG IVPUSH (16:40)
== END 2021-01-31 18:10 | disposition home or self-care (01) ==
PROVIDERS: Internal Medicine; PCP Internal Medicine; Visit Provider Surgery
PROC: (CPT 19301; principal; 2021-01-31 12:40)
PROC: (CPT 19301; 2021-01-31 12:40)
DX: D05.11 Intraductal carcinoma in situ of right breast (principal); L30.9 Dermatitis, unspecified; Z87.891 Personal history of nicotine dependence
CPT/HCPCS: 19301; 19281; 81025; 88307; 88329; A4648; J0690; J1100; J2250; J2405; J2550; J3010

== ENCOUNTER → 2021-02-11 15:06 | Outpatient (BNVA) | payer OTHER, SELFPAY | PROVIDERS: PCP Internal Medicine; Visit Provider Surgery | DX: D05.11 Intraductal carcinoma in situ of right breast (principal) | CPT/HCPCS: 99212 ==

== ENCOUNTER → 2021-03-18 14:42 | Outpatient (BNVA) | payer OTHER, SELFPAY | PROVIDERS: PCP Internal Medicine; Visit Provider Surgery | DX: D05.11 Intraductal carcinoma in situ of right breast (principal) | CPT/HCPCS: 99212 ==

== ENCOUNTER 2021-03-21 09:56 | Outpatient (REF) | payer OTHER, SELFPAY ==
--- NOTE | ~2021-03-21 | XR_ITS ---
EXAMINATION: XR BILATERAL HAND XR BILATERAL KNEES. CLINICAL INFORMATION: Pain and bilateral hand and bilateral knees. COMPARISON: None. TECHNIQUE: 3 views each knee. 3 views each hand. FINDINGS: Right Hand: There is no visible acute fracture, dislocation or subluxation. The PIP, DIP and MCP joint spaces are maintained normal. The soft tissues are normal. Left Hand: There is no visible acute fracture, dislocation or subluxation. The joint spaces are maintained normal. The soft tissues are normal. Right Knee: There is no visible acute fracture, dislocation or subluxation. The tricompartment joint space is mildly reduced. No fracture, dislocation or loose body seen. No abnormal suprapatellar joint effusion. Left Knee: There is no visible acute fracture, dislocation or subluxation seen. There is mild inferior patellar spurring. No bony erosive changes. The soft tissues are normal. XR/XR hand LT min 3V IMPRESSION: Unremarkable bilateral knee exam. Unremarkable bilateral hand exam.
--- NOTE | ~2021-03-21 | XR_ITS ---
EXAMINATION: XR BILATERAL HAND XR BILATERAL KNEES. CLINICAL INFORMATION: Pain and bilateral hand and bilateral knees. COMPARISON: None. TECHNIQUE: 3 views each knee. 3 views each hand. FINDINGS: Right Hand: There is no visible acute fracture, dislocation or subluxation. The PIP, DIP and MCP joint spaces are maintained normal. The soft tissues are normal. Left Hand: There is no visible acute fracture, dislocation or subluxation. The joint spaces are maintained normal. The soft tissues are normal. Right Knee: There is no visible acute fracture, dislocation or subluxation. The tricompartment joint space is mildly reduced. No fracture, dislocation or loose body seen. No abnormal suprapatellar joint effusion. Left Knee: There is no visible acute fracture, dislocation or subluxation seen. There is mild inferior patellar spurring. No bony erosive changes. The soft tissues are normal. XR/XR hand RT min 3V IMPRESSION: Unremarkable bilateral knee exam. Unremarkable bilateral hand exam.
--- NOTE | ~2021-03-21 | XR_ITS ---
EXAMINATION: XR BILATERAL HAND XR BILATERAL KNEES. CLINICAL INFORMATION: Pain and bilateral hand and bilateral knees. COMPARISON: None. TECHNIQUE: 3 views each knee. 3 views each hand. FINDINGS: Right Hand: There is no visible acute fracture, dislocation or subluxation. The PIP, DIP and MCP joint spaces are maintained normal. The soft tissues are normal. Left Hand: There is no visible acute fracture, dislocation or subluxation. The joint spaces are maintained normal. The soft tissues are normal. Right Knee: There is no visible acute fracture, dislocation or subluxation. The tricompartment joint space is mildly reduced. No fracture, dislocation or loose body seen. No abnormal suprapatellar joint effusion. Left Knee: There is no visible acute fracture, dislocation or subluxation seen. There is mild inferior patellar spurring. No bony erosive changes. The soft tissues are normal. XR/XR knee LT 3V IMPRESSION: Unremarkable bilateral knee exam. Unremarkable bilateral hand exam.
--- NOTE | ~2021-03-21 | XR_ITS ---
EXAMINATION: XR BILATERAL HAND XR BILATERAL KNEES. CLINICAL INFORMATION: Pain and bilateral hand and bilateral knees. COMPARISON: None. TECHNIQUE: 3 views each knee. 3 views each hand. FINDINGS: Right Hand: There is no visible acute fracture, dislocation or subluxation. The PIP, DIP and MCP joint spaces are maintained normal. The soft tissues are normal. Left Hand: There is no visible acute fracture, dislocation or subluxation. The joint spaces are maintained normal. The soft tissues are normal. Right Knee: There is no visible acute fracture, dislocation or subluxation. The tricompartment joint space is mildly reduced. No fracture, dislocation or loose body seen. No abnormal suprapatellar joint effusion. Left Knee: There is no visible acute fracture, dislocation or subluxation seen. There is mild inferior patellar spurring. No bony erosive changes. The soft tissues are normal. XR/XR knee RT 3V IMPRESSION: Unremarkable bilateral knee exam. Unremarkable bilateral hand exam.
[2021-03-21 11:34] LABS: MANUAL DIFF FLAG NO
[2021-03-21 11:41] LABS: Basophils Absolute Auto 0.1 X10*3/uL (0.0-0.2); Basophils Percent Auto 0.7 % (0-2); Eosinophils Absolute Auto 0.2 X10*3/uL (0.0-0.4); Eosinophils Percent Auto 3.5 % (0-4); Hematocrit 42.5 % (37-47); Hemoglobin 14.3 g/dl (12.0-16.0); Imm Gran Abs Auto 0.03 X10*3/uL (0.00-0.03); Imm Gran Pct Auto 0.4 % (0.0-0.4); Lymphocytes Absolute Auto 1.9 X10*3/uL (1.2-4.9); Lymphocytes Percent Auto 28.2 % (20-40); Mean Corpuscular HGB Conc 33.6 g/dl (31.0-35.0); Mean Corpuscular Hemoglobin 30.6 pg (27.0-33.0); Mean Platelet Volume 9.5 fL (9.4-12.3); Monocytes Absolute Auto 0.4 X10*3/uL (0.1-1.2); Monocytes Percent Auto 6.3 % (2-11); Neutrophils Absolute Auto 4.2 X10*3/uL (2.0-8.3); Neutrophils Percent Auto 60.9 % (45-73); Platelet Count 366 X10*3/uL (160-400); Red Blood Count 4.67 X10*6/uL (4.20-5.50); Red Cell Distribution Width 11.7 % (11.0-16.0); White Blood Count 6.9 X10*3/uL (4.8-10.8)
[2021-03-21 12:29] LABS: Erythrocyte Sedimentation Rate 0 MM/HR (0-20)
[2021-03-21 12:30] LABS: TSH reflex Free T4 1.23 uIU/mL (0.32-4.0)
[2021-03-21 13:17] LABS: Alanine Aminotransferase 57 U/L (0-31); Albumin Level 4.9 g/dL (3.5-5.0); Alkaline Phosphatase 75 U/L (39-117); Anion Gap 15 (12-20); Aspartate Amino Transferase 30 U/L (5-31); Bilirubin Total 0.3 mg/dL (0.0-1.0); Blood Urea Nitrogen 15 mg/dL (9-16); C Reactive Protein 0.55 mg/dL (< or = 0.50); Calcium 9.6 mg/dL (8.4-10.2); Carbon Dioxide 23 mmol/L (22-29); Chloride 106 mmol/L (96-108); Cholesterol 238 mg/dL; Estimated Glomerular Filt Rate > 60; Glucose Fasting 108 mg/dL (60-99); HDL Cholesterol 49 mg/dL; LDL Cholesterol Calculated 163 mg/dl; Potassium 4.5 mmol/L (3.3-5.1); Rheumatoid Factor < 15.0 IU/mL (<15.0); Sodium 139 mmol/L (135-145); Triglycerides 132 mg/dL
[2021-03-22 14:57] LABS: Antibody to SS-A Antigen <1.0 NEG AI (<1.0 NEG); Antibody to SS-B Antigen <1.0 NEG AI (<1.0 NEG)
[2021-03-24 15:07] LABS: Anti Nuclear Antibody Screen POSITIVE (NEGATIVE)
[2021-03-24 16:16] LABS: Cyclic Citrullinated Peptide <16 UNITS
[2021-03-25 12:51] LABS: Vitamin D 25-OH, D2 <4 ng/mL; Vitamin D 25-OH, D3 16 ng/mL; Vitamin D 25-OH, Total 16 ng/mL (30-100)
== END 2021-03-21 09:57 | disposition home or self-care (01) ==
LOC: HO.LAB 09:56
PROVIDERS: PCP Internal Medicine; Visit Provider Student in an Organized Health Care Education/Training Program
DX: M79.641 Pain in right hand (principal); M79.642 Pain in left hand; M25.561 Pain in right knee; M25.562 Pain in left knee; E66.9 Obesity, unspecified; E78.5 Hyperlipidemia, unspecified; E55.9 Vitamin D deficiency, unspecified
CPT/HCPCS: 36415; 73130; 73562; 80053; 80061; 82306; 84443; 85025; 85652; 86038; 86039; 86140; 86200; 86235; 86431; 99202

== ENCOUNTER 2021-04-11 11:04 | Outpatient (REF) | payer OTHER, SELFPAY ==
[2021-04-11 12:36] LABS: MANUAL DIFF FLAG NO
[2021-04-11 12:45] LABS: Basophils Percent Auto 0.7 % (0-2); Eosinophils Absolute Auto 0.3 X10*3/uL (0.0-0.4); Eosinophils Percent Auto 5.1 % (0-4); Hematocrit 40.6 % (37-47); Hemoglobin 13.6 g/dl (12.0-16.0); Imm Gran Abs Auto 0.04 X10*3/uL (0.00-0.03); Imm Gran Pct Auto 0.7 % (0.0-0.4); Lymphocytes Absolute Auto 1.3 X10*3/uL (1.2-4.9); Lymphocytes Percent Auto 20.8 % (20-40); Mean Corpuscular HGB Conc 33.5 g/dl (31.0-35.0); Mean Corpuscular Hemoglobin 30.5 pg (27.0-33.0); Mean Platelet Volume 9.7 fL (9.4-12.3); Monocytes Absolute Auto 0.5 X10*3/uL (0.1-1.2); Neutrophils Absolute Auto 3.8 X10*3/uL (2.0-8.3); Neutrophils Percent Auto 63.7 % (45-73); Platelet Count 353 X10*3/uL (160-400); Red Blood Count 4.46 X10*6/uL (4.20-5.50); Red Cell Distribution Width 11.8 % (11.0-16.0)
[2021-04-11 13:00] LABS: Alanine Aminotransferase 39 U/L (0-31); Albumin Level 4.4 g/dL (3.5-5.0); Alkaline Phosphatase 58 U/L (39-117); Anion Gap 12 (12-20); Aspartate Amino Transferase 21 U/L (5-31); Bilirubin Total 0.5 mg/dL (0.0-1.0); Blood Urea Nitrogen 10 mg/dL (9-16); Calcium 9.4 mg/dL (8.4-10.2); Carbon Dioxide 24 mmol/L (22-29); Chloride 107 mmol/L (96-108); Estimated Glomerular Filt Rate > 60; Glucose Random 102 mg/dL (60-115); Potassium 4.4 mmol/L (3.3-5.1); Rheumatoid Factor < 15.0 IU/mL (<15.0); Sodium 139 mmol/L (135-145); Total Protein 7.4 g/dL (6.5-8.0)
[2021-04-11 13:02] LABS: Glucose Urine UA NEG (NEG); Leukocyte Esterase Urine NEG (NEG); Nitrite Urine NEG (NEG); Specific Gravity - Urine >= 1.030 (1.005-1.025); Urine Blood 2+ (NEG); Urine Ketones NEG (NEG); Urine Protein NEG (NEG-TRACE)
[2021-04-11 13:06] LABS: Appearance Urine HAZY; Color Urine YELLOW
[2021-04-11 14:10] LABS: Bacteria Urine 1+ /LPF; Mucus Urine 1+ /LPF; Squamous Epithelial Cell Urine 2+ /LPF; WBC Urine 0-2 /HPF (0-4)
[2021-04-12 07:06] LABS: Thyroglobulin Antibodies <1 IU/mL (< or = 1); Thyroid Peroxidase Antibodies <1 IU/mL (<9)
[2021-04-12 11:32] LABS: CA 27.29 10 U/mL (<38)
[2021-04-15 10:42] LABS: Complement C3 80 mg/dL (83-193)
[2021-04-15 16:02] LABS: Anti DNA DS Antibody 1 IU/mL; SM/Ribonucleoprotein Ab <1.0 NEG AI (<1.0 NEG); Smith Protein <1.0 NEG AI (<1.0 NEG)
== END 2021-04-11 11:05 | disposition home or self-care (01) ==
LOC: HO.LAB 11:04
PROVIDERS: Internal Medicine; PCP Internal Medicine; Referring Provider Internal Medicine Medical Oncology; Visit Provider Student in an Organized Health Care Education/Training Program
DX: M25.50 Pain in unspecified joint (principal); M79.641 Pain in right hand; M79.642 Pain in left hand; R76.8 Other specified abnormal immunological findings in serum; D05.11 Intraductal carcinoma in situ of right breast; Z79.899 Other long term (current) drug therapy
CPT/HCPCS: 36415; 80053; 81001; 85025; 86160; 86225; 86235; 86300; 86376; 86431; 86800; 99212

== ENCOUNTER → 2021-06-20 10:25 | Outpatient (BNVA) | payer OTHER, SELFPAY | PROVIDERS: PCP Internal Medicine; Referring Provider Internal Medicine; Visit Provider Surgery | DX: D05.11 Intraductal carcinoma in situ of right breast (principal) | CPT/HCPCS: 99212 ==

== ENCOUNTER → 2021-07-03 13:16 | Outpatient (BNVA) | payer OTHER, SELFPAY | PROVIDERS: PCP Internal Medicine; Referring Provider Internal Medicine; Visit Provider Surgery | DX: N61.0 Mastitis without abscess (principal) | CPT/HCPCS: 99212 ==

== ENCOUNTER → 2021-07-10 10:00 | Outpatient (BNVA) | payer OTHER, SELFPAY | PROVIDERS: PCP Internal Medicine; Referring Provider Internal Medicine; Visit Provider Surgery | DX: N61.0 Mastitis without abscess (principal) | CPT/HCPCS: 99212 ==

== ENCOUNTER 2021-07-15 09:41 | Outpatient (REF) | payer OTHER, SELFPAY ==
--- NOTE | ~2021-07-15 | MM_ITS ---
EXAMINATION: MM DIAGNOSTIC DIGITAL BREAST TOMOSYNTHESIS, RIGHT US DIAGNOSTIC ULTRASOUND BREAST, RIGHT CLINICAL INFORMATION: 30-year-old status post right lumpectomy 01/31/2021 for DCIS. Radiation completed late April. Patient presents with fullness and tenderness right breast. This represents first imaging since surgery and radiation. COMPARISON: Mammography: 01/08/2021, 01/15/2021, 01/31/2021 TECHNIQUE: Digital breast tomosynthesis is performed in both the craniocaudal and mediolateral oblique views along with computer-aided detection (CAD). Synthesized 2D images are generated from the tomosynthesis. Additional magnification right CC and magnification right ML views are obtained. Ultrasound right breast is performed using grayscale imaging and color Doppler without and with harmonics. All 4 quadrants and retroareolar region are imaged. Patient is able to point to the areas of greatest symptoms at time of imaging. FINDINGS: The breasts are heterogeneously dense, which may obscure small masses (ACR BI-RADS breast composition Category c). There are post therapy changes with minor scarring upper outer right breast. There is smooth skin thickening. There is no visible seroma or abscess. No abnormal calcifications. The axilla is unremarkable. Ultrasound right breast demonstrates smooth skin thickening. There is no intradermal or parenchymal abscess. No cystic or solid mass or focal duct ectasia or edema tracking in soft tissue planes. No focal hyperemia. Results are discussed with the patient at time of visit. Results called to medical transcription radiology ([place]) for Dr. Montejo on 07/15/2021. MM/MM tomosynthesis diagnostic RT IMPRESSION: 1. Expected post therapy changes right breast. 2. No abscess or seroma demonstrated. No aspiration performed. ASSESSMENT: BI-RADS 2: Benign RECOMMENDATION: 1. Patient should be managed based on the clinical impression. 2. Otherwise, routine annual screening mammography. This patient's information was entered into a reminder system with a target due date for their next mammogram.
== END 2021-07-15 09:42 | disposition home or self-care (01) ==
LOC: HO.MAMMO 09:41
PROVIDERS: Visit Provider Surgery
DX: N61.0 Mastitis without abscess (principal)
CPT/HCPCS: 76642; 77061; 77065

== ENCOUNTER → 2021-08-15 11:20 | Outpatient (BNVA) | payer OTHER, SELFPAY | PROVIDERS: PCP Internal Medicine; Referring Provider Internal Medicine; Visit Provider Surgery | DX: D05.11 Intraductal carcinoma in situ of right breast (principal) | CPT/HCPCS: 99212 ==

== ENCOUNTER → 2021-09-23 15:45 | Outpatient (BNVA) | payer OTHER, SELFPAY | PROVIDERS: PCP Internal Medicine; Referring Provider Internal Medicine; Visit Provider Surgery | DX: D05.11 Intraductal carcinoma in situ of right breast (principal) | CPT/HCPCS: 99212 ==

== ENCOUNTER → 2021-11-18 09:55 | Outpatient (BNVA) | payer OTHER, SELFPAY | PROVIDERS: PCP Internal Medicine; Referring Provider Internal Medicine; Visit Provider Surgery | DX: N61.0 Mastitis without abscess (principal); D05.11 Intraductal carcinoma in situ of right breast | CPT/HCPCS: 99212 ==

== ENCOUNTER 2022-02-07 10:30 | Outpatient (REF) | payer OTHER, SELFPAY ==
[2022-02-07 12:03] LABS: Blood Urea Nitrogen 11 mg/dL (9-16); Estimated Glomerular Filt Rate > 60
== END 2022-02-07 10:31 | disposition home or self-care (01) ==
LOC: HO.LAB 10:30
PROVIDERS: PCP Internal Medicine; Visit Provider Surgery
DX: Z01.812 Encounter for preprocedural laboratory examination (principal); D05.11 Intraductal carcinoma in situ of right breast
CPT/HCPCS: 36415; 82565; 84520

== ENCOUNTER 2022-02-09 08:03 | Outpatient (REF) | payer OTHER, SELFPAY ==
--- NOTE | ~2022-02-09 | CT_ITS ---
EXAMINATION: CT CHEST WITH CONTRAST CLINICAL INFORMATION: Mastoiditis without abscess. COMPARISON: None. TECHNIQUE: Multidetector volumetric CT imaging of the chest was obtained after the administration of 65 mL of Omnipaque 350 intravenous contrast without immediate adverse reactions. Axial MIP volume rendering provided. Sagittal and coronal reformatted images were obtained. This CT examination was performed using dose optimization techniques as appropriate, variously including the following: *Automated exposure control *Adjustment of mA and/or kV according to patient size (this includes techniques or standardized protocols for targeted exams where dose is matched to indication/reason for exam; i.e. extremities or head) *Use of iterative reconstruction technique DLP: 127 mGy-cm. FINDINGS: PRECISION HONER: Well-inflated lungs. LUNGS: The lungs are well expanded and clear of acute pneumonic process. There is a 3 mm nodule right upper lobe axial image 15/4, plate-like atelectasis right middle lobe. There is no acute consolidation or mass. MEDIASTINUM: The thyroid lobes are symmetric and normal. The central trachea and the bronchi widely patent. Heart size and the great vessels are normal caliber. There is no pericardial effusion seen. Central trachea and the bronchi widely patent. No abnormal-sized mediastinal or hilar lymph nodes visualized. PLEURA: There is no pleural effusion. No pleural mass or thickening. AXILLA: There are small shotty lymph nodes in the axilla. The chest wall appears unremarkable. There is minimal nonspecific mild skin thickening of the right medial breast with mild induration along the anterior chest resulting in asymmetric mild enlargement of the right breast compared to left. No abscess or mass or nodule seen. UPPER ABDOMEN: The liver is diffusely attenuated without any focal lesion or intrahepatic ductal dilatation. The gallbladder has been surgically removed. Visualized spleen, pancreas and bilateral adrenal glands unremarkable. OSSEOUS STRUCTURES: No aggressive lytic or sclerotic process. CT/CT chest w con IMPRESSION: There is moderate-appearing nodule right upper lobe and plate-like atelectasis right middle lobe. No abnormal mediastinal adenopathy seen. Hepatic steatosis. Mild skin thickening involving medial and anterior right breast with slight induration along the anterior breast. No focal abscess or mass. The right breast may be minimally larger compared to the left. Fleischner guidelines were followed.
[2022-02-09] MEDS: iohexoL 350 MG/ML 100 ML INFUS..BTL IV (08:35)
== END 2022-02-09 08:04 | disposition home or self-care (01) ==
LOC: HO.CT 08:03
PROVIDERS: PCP Internal Medicine; Visit Provider Surgery
DX: N61.0 Mastitis without abscess (principal)
CPT/HCPCS: 71260; Q9967

== ENCOUNTER → 2022-06-25 12:30 | Outpatient (BNVA) | payer OTHER, SELFPAY | PROVIDERS: PCP Internal Medicine; Referring Provider Internal Medicine; Visit Provider Internal Medicine | DX: R60.9 Edema, unspecified (principal); R06.02 Shortness of breath | CPT/HCPCS: 93005; 99202 ==

== ENCOUNTER → 2022-07-10 08:25 | Outpatient (REF) | payer OTHER, SELFPAY ==
--- NOTE | 2022-07-10 08:27 | CA_ITS ---
Transthoracic Echocardiogram Patient (Last, First, Middle): Christine Kaba, Gender: Female Date of : 1990 Age: 31 Procedure Date: 07/10/2022 Procedure Type: Transthoracic Echocardiogram Location: OP Height: 167.64 cm Weight: 98.88 kg BSA: 2.07 m2 Heart Rate: 59 bpm BP: 118 / 76 mmHg Processor Solid Propellant: SB Referring MD: Tommy Kyle MD Symptoms: I50.9 - Heart failure, unspecified Study Quality: Adequate ECG Rhythm: Bradycardia Conclusions: - Normal left ventricular size, thickness, systolic function, and wall motion. The visually estimated ejection fraction is between 55-60%. Diastolic function is normal for age. - Low global longitudinal strain -15 to -16%. - Normal right ventricular cavity size and systolic function. Findings Left Ventricle Normal left ventricular size, thickness, systolic function, and wall motion. The visually estimated ejection fraction is between 55-60%. Diastolic function is normal for age. Right Ventricle Normal right ventricular cavity size and systolic function. Atria Both atria are normal in size. Aortic Valve Normal aortic valve structure and function. There is no aortic valve stenosis. There is no aortic valve regurgitation. Mitral Valve Normal mitral valve structure and function. There is trace mitral valve regurgitation. There is no mitral valve stenosis. Pulmonic Valve Normal pulmonic valve structure and function. There is trace pulmonic valve regurgitation. Tricuspid Valve Normal tricuspid valve structure and function. There is trace tricuspid valve regurgitation. Normal right atrial pressure. There is no evidence of pulmonary hypertension. Great Vessels All visible segments of the aorta are normal in size. The visualized portions of the pulmonary artery and branches are normal. Venous The inferior vena cava is normal in size and collapses greater than 50% with inspiration. Pericardium/Pleural There is no evidence of pericardial effusion. Prior Study Comparison No prior study available for comparison. Measurements 2D Linear Measurements IVSd: 0.65 0.6-0.9/0.6-1.0 cm LVIDd: 5.51 3.9-5.3/4.2-5.9 cm LVIDd Index: 2.66 2.4-3.2/2.2-3.1 cm/m2 LVIDs: 3.42 2.0-3.6 cm LVPWd: 0.54 0.7-1.1 cm LA Diam: 3.70 2.7-3.8/3.0-4.0 cm LAIDs Index: 1.79 1.5-2.3 cm/m2 LV Mass: 139.24 67-162/88-224 g LV Mass Index: 67.26 43-95/49-115 g/m2 LVOT Diam: 2.10 3.0+(-)1.3 cm 2D Systolic Function EF 4C: 64.60 >55% EF 2C: 54.40 >55% EF BiP: 59.70 >55% Mitral Valve MV Pk E: 1.11 MV PK A: 0.56 MV Decel Time: 163.00 E/A: 2.00 E'Lateral: 16.10 E'Medial: 10.00 E/E' Med: 11.10 E/E' Lat: 6.90 PHT: 48.00 MVA PHT: 4.58 Decel [place]: 6.80 Aortic Valve AoV Pk Christiano: 1.28 AoV Mn Christiano: 0.93 AoV VTI: 0.30 AoV Pk Grad: 7.00 Aov Mn Grad: 4.00 JULISSA Cont.VTI: 2.60 LVOT LVOT Pk Christiano: 1.16 LVOT Mn Christiano: 0.82 LVOT VTI: 0.22 LVOT Pk Grad: 5.00 LVOT Mn Grad: 3.00 LVOT Diam: 2.10 LVOT Area: 3.46 Diastolic Function MV Pk E: 1.11 MV Pk A: 0.56 E/A: 2.00 E'Medial: 10.00 E/E' Med: 11.10 E' Laterial: 16.10 E/E' Lat: 6.90 Right Ventricle TAPSE (mm): 19.10 TVS' Christiano: 13.60 Tricuspid Valve TR Pk Christiano: 1.95 TR Pk Grad: 15.00 RA Press: 3.00 RVSP: 18.00 Great Vessels Aorta Sinus of Valsalva: 2.50 2.0-3.5 cm Ao Asc: 2.60 2.1-3.4 cm Pulmonary Valve PV Pk Christiano: 1.00 Peak PV Grad: 4.00 Updated in Other Vendor System with Status of Final Jose Alvarado MD electronically signed on 07/12/2022 1:28:56 PM with status of Final
== END ==
LOC: HO.CARD 08:25
PROVIDERS: Absent Provider Internal Medicine; PCP Internal Medicine; Visit Provider Internal Medicine
DX: I50.9 Heart failure, unspecified (principal)
CPT/HCPCS: 93306; 93356

== ENCOUNTER 2022-07-29 09:58 | Outpatient (REF) | payer OTHER, SELFPAY ==
[2022-07-29 10:47] LABS: Hematocrit 42.6 % (37.0-47.0); Hemoglobin 14.6 g/dl (12.0-16.0); Mean Corpuscular HGB Conc 34.3 g/dl (31.0-35.0); Mean Corpuscular Hemoglobin 31.4 pg (27.0-33.0); Mean Corpuscular Volume 91.6 fL (80.0-98.0); Mean Platelet Volume 9.4 fL (9.4-12.3); Platelet Count 337 X10*3/uL (160-400); Red Blood Count 4.65 X10*6/uL (4.20-5.50); Red Cell Distribution Width 11.9 % (11.0-16.0); White Blood Count 6.5 X10*3/uL (4.8-10.8)
[2022-07-29 11:45] LABS: HCG Quantitative < 2 mIU/mL; Thyroid Stimulating Hormone 1.64 uIU/mL (0.32-4.0)
[2022-07-29 11:47] LABS: HBsAGNum1 0.16 S/CO (0.00-0.99); HIV AB/AG Nonreactive (Nonreactive); HIV Num 1 0.07 S/CO (0.00-0.99); Hepatitis B Surface Antigen Negative (Negative); ~HepC Num1 0.15 S/CO (0.00-0.79); ~Hepatitis C Antibody Nonreactive (Nonreactive)
[2022-07-29 11:50] LABS: Syphilis Screen Nonreactive (Nonreactive)
[2022-07-29 14:37] LABS: CT PCR NOT DETECTED (Not Detect.); NG PCR NOT DETECTED (Not Detect.)
[2022-07-30 09:45] LABS: BV Int Neg Control Negative (Negative); BV Int Pos Control Positive (Positive)
[2022-07-31 21:43] LABS: HPV mRNA E6/E7 rflx Not Detected (Not Detected)
== END 2022-07-29 09:59 | disposition home or self-care (01) ==
LOC: HO.LNP 09:58
PROVIDERS: Visit Provider Advanced Practice Midwife
DX: Z01.419 Encounter for gynecological examination (general) (routine) without abnormal findings (principal); Z11.51 Encounter for screening for human papillomavirus (HPV); Z11.4 Encounter for screening for human immunodeficiency virus [HIV]; D05.11 Intraductal carcinoma in situ of right breast
CPT/HCPCS: 84443; 84702; 85027; 86780; 86803; 87340; 87389; 87480; 87491; 87510; 87591; 87624; 87660; 88142

== ENCOUNTER → 2022-09-11 11:09 | Outpatient (BNVA) | payer OTHER, SELFPAY | PROVIDERS: PCP Internal Medicine; Referring Provider Internal Medicine; Visit Provider Surgery | DX: N61.0 Mastitis without abscess (principal); D05.11 Intraductal carcinoma in situ of right breast | CPT/HCPCS: 99212 ==

== ENCOUNTER → 2023-03-16 08:52 | Outpatient (BNVA) | payer OTHER, SELFPAY | PROVIDERS: PCP Internal Medicine; Visit Provider Surgery | DX: D05.11 Intraductal carcinoma in situ of right breast (principal) | CPT/HCPCS: 99212 ==

== ENCOUNTER 2023-03-31 14:32 | Outpatient (REF) | payer OTHER, SELFPAY | END 2023-03-31 14:33 | disposition home or self-care (01) | LOC: HO.MAMMO 14:32 | PROVIDERS: PCP Internal Medicine; Visit Provider Surgery | DX: Z13.89 Encounter for screening for other disorder (principal) ==

== ENCOUNTER 2023-04-02 14:24 | Outpatient (REF) | payer OTHER, SELFPAY ==
--- NOTE | ~2023-04-02 | MM_ITS ---
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 COMPARISON: Mammography: 11/28/2021 and studies dating back to 01/08/2021. TECHNIQUE: Digital breast tomosynthesis is performed in both the craniocaudal and mediolateral oblique views along with computer-aided detection (CAD). Synthesized 2D images are generated from the tomosynthesis. Spot magnification views of the right breast in craniocaudal and 90-degree mediolateral views also performed. FINDINGS: The breasts are heterogeneously dense, which may obscure small masses (ACR BI-RADS breast composition Category c). Patient is status post right breast lumpectomy with postsurgical change seen laterally. No new abnormal dominant mass is appreciated. No new suspicious grouping of microcalcifications. Results are provided to the patient at time of visit by the technologist. MM/MM tomosynthesis diagnostic BI IMPRESSION: There are no significant changes from prior study. Right breast postsurgical change. ASSESSMENT: BI-RADS 2: Benign RECOMMENDATION: Diagnostic mammography at time of next annual exam, due in 12 months. This patient's information was entered into a reminder system with a target due date for their next mammogram.
== END 2023-04-02 14:25 | disposition home or self-care (01) ==
LOC: HO.MAMMO 14:24
PROVIDERS: PCP Internal Medicine; Visit Provider Surgery
DX: Z85.3 Personal history of malignant neoplasm of breast (principal)
CPT/HCPCS: 77062; 77066

== ENCOUNTER 2023-05-26 11:04 | Outpatient (AMB) | payer OTHER, SELFPAY ==
--- NOTE | 2023-05-26 11:43 | AM.OFFWIN_ITS ---
Intake Vital Signs 05/26/23 11:44 Height 5 ft 6 in Weight 231 lb BMI 37.3 BP 130/78 Blood Pressure Location Rt brachial Position Sitting Pulse 66 Pulse Source Pulse Oximeter Temp 97.1 F Temp Source Temporal Artery Scan Pulse Oximetry (%) 98 Oxygen Delivery Method Room Air Intake Visit Reasons: EP, Nausea, Congestion (masked) Intake Note: Patient here for runny nose, slight cough, headaches, slight sob. Patient Tobacco Use Status: Never used Tobacco Allergies FRUIT Allergy (Mild, Uncoded 05/26/23 12:02) ITCHING OF LIPS AND TONGUE, ONLY SOME FRUITS Medication List - Last Reconciled 05/26/23 by Dov Clarke MD desonide 0.05% 1 appl topical BID 30 days Do you need a note to return to daycare/school/sports/work: Yes HPI EP, Nausea, Congestion (masked) HPI Details Patient presents for a sick visit. Reporting symptoms of sinus congestion, sore throat and difficulty swallowing. Low-grade fever. No family member is sick. No recent travel. Patient reports symptoms of malaise and fati nida. 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 Cognitive needs: No Hearing needs: No Vision needs: Yes (Glasses) Female Reproductive History Menstrual Age of Menarche: 10 Physical Exam Vital Signs: Last Vital Signs Temp 97.1 F 05/26/23 11:44 Pulse 66 05/26/23 11:44 BP 130/78 05/26/23 11:44 Pulse Ox 98 05/26/23 11:44 Oxygen Delivery Method Room Air 05/26/23 11:44 BMI result Body Mass Index 37.3 Const General: cooperative and healthy appearing Nutritional Appearance: well nourished Orientation/consciousness: patient oriented x3 Limitations: no limitations HEENT Head: Yes normal to inspection Eyes General: appearance normal, both eyes and all related structures Neck Neck: Yes normal visual inspection Chest Chest palpation & inspection: normal palpation of entire chest wall Resp Effort & Inspection: normal respiratory effort Neuro General: patient oriented x3 Assessment & Plan Assessment & Plan (1) Upper respiratory tract infection: Code(s): J06.9 - Acute upper respiratory infection, unspecified Plan: Antibiotics ordered. Increase fluid intake. Tylenol for aches and pains. If symptoms worsen, follow-up here for a recheck. COVID testing has been ordered. Will call with the results. Orders: Orders SARS-CoV2/FLU/RSV Today R43.9 - Unspecified disturbances of smell and taste Coding Level of Care Code Est Pt Level 3 (76790) Diagnoses Upper respiratory tract infection J06.9
[2023-05-26 11:44] VITALS: BP 130/78; PULSE 66; TEMP 36.2; O2SAT 98; BMI 37.3
== END 2023-05-26 12:14 | disposition home or self-care (01) ==
PROVIDERS: PCP Internal Medicine; Visit Provider Internal Medicine
DX: J06.9 Acute upper respiratory infection, unspecified (principal)
CPT/HCPCS: 99213

== ENCOUNTER 2023-05-26 16:08 | Outpatient (REF) | payer OTHER, SELFPAY ==
[2023-05-26 17:21] LABS: Influenza A PCR NEGATIVE (Negative); Influenza B PCR NEGATIVE (Negative); Resp Syncy Virus RNA Qual PCR NEGATIVE (Negative); SARS COV2 PCR INHOUSE NEGATIVE (Negative)
== END 2023-05-26 16:09 | disposition home or self-care (01) ==
LOC: HO.LNP 16:08
PROVIDERS: Visit Provider Internal Medicine
DX: R43.9 Unspecified disturbances of smell and taste (principal)
CPT/HCPCS: 0241U

== ENCOUNTER 2023-07-19 13:47 | Outpatient (AMB) | payer OTHER, SELFPAY ==
--- NOTE | 2023-07-19 13:49 | MHC.PC.OV ---
Vital Signs 07/19/23 13:51 Height 5 ft 6 in Weight 235 lb BMI 37.9 BP 110/70 Blood Pressure Location Lt brachial Position Sitting Pulse 63 Pulse Source Pulse Oximeter Pulse Oximetry (%) 99 Oxygen Delivery Method Room Air Intake Visit Reasons: discuss medical issues Intake Note: Patient is here to discuss medical issues.Concern of weight an dother issues Dry Cleaner Presser Required: No Device Sales Consultant: Not Required per policy Accompanied by: Self / Same As Patient Allergies FRUIT Allergy (Mild, Uncoded 07/19/23 13:51) ITCHING OF LIPS AND TONGUE, ONLY SOME FRUITS Tobacco use date assessed: 07/19/23 Dental Screening Dental Screen Date: 07/19/23 Did you have a dental visit in the last 12 months?: No Did you have a dental problem in the last 6 months where you did not have access to dental care?: No Was dental information given to patient?: Patient has dentist HPI HPI Comments History of Present Illness Details 32-year-old female past meducal history significant for CHF, ductal carcinoma in-situ of right breast, vertigo, anxiety. Patient last seen in 2020 by patient presents today. Patient presents today for weight concern. Patient reports she knows she is overweight no matter what she diet sent exercise as she cannot seem to drop the weight. Discussed referral to medical weight management program, patient agreeable to referral reports that she does not want to undergo any bariatric surgery. Patient also requesting if a prescription for Ozempic can be sent to her pharmacy, Rx sent. 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 Cognitive needs: No Hearing needs: No Vision needs: Yes (Glasses) Female Reproductive History Menstrual Age of Menarche: 10 Questionnaire PHQ-9 Over the last 2 weeks, how often have you been bothered by any of the following problems? 1. Little interest or pleasure in doing things: several days 2. Feeling down, depressed, or hopeless: several days 3. Trouble falling or staying asleep, or sleeping too much: more than half the days 4. Feeling tired or having little energy: several days 5. Poor appetite or overeating: several days 6. Feeling bad about yourself - or that you are a failure or have let yourself or your family down: several days 7. Trouble concentrating on things, such as reading the newspaper or watching television: several days 8. Moving or speaking so slowly that other people could have noticed. Or the opposite - being so fidgety or restless that you have been moving around a lot more than usual: not at all 9. Thoughts that you would be better off or of hurting yourself in some way: not at all (some times) Total score: 8 Depression Screening Interpretation: Positive Depression Screening Done: Yes 80768 - PHQ-9 Billing: Yes Source: Developed by Drs. Braydon Cueva, Eliza Denton, Darnell Jimenez and colleagues, with an educational christiano from [employer]. Thrive Questionnaire Date Thrive assessed: 07/19/23 I am a: Patient What is your living situation today?: I have a steady place to live Within the past 12 months, did the food you bought not last and you didn't have the money to get more?: Never true Within the past 12 months, did you worry whether your food would run out before you got money to buy more?: Never true Do you have trouble paying for medicines?: No Do you have trouble getting transportation to medical appointments?: No Do you have trouble paying your heating and electricity bill?: No Do you have trouble taking care of your child, family member or friend?: No Do you have trouble with day-to-day activities such as bathing, preparing meals, shopping, managing finances, etc.?: No Are you currently unemployed and looking for a job?: No Are you interested in more education?: No Currently or been in a relationship where the following occur: no concerns reported AUDIT C Alcohol Use Questionnaire (AUDIT-C) 1. How often do you have a drink containing alcohol?: 2-4 times a month 2. How many drinks containing alcohol do you have on a typical day when you are drinking?: 1 or 2 Total Score: 2 SIERRA-7 AMB Questionnaire SIERRA-7 Date SIERRA - 7 assessed: 07/19/23 Feeling nervous, anxious, or on edge: 1 = Several days Not being able to stop or control worryin = More than half the days Worrying too much about different things: 2 = More than half the days Trouble relaxin = Several days Being so restless that it is hard to sit still: 1 = Several days Becoming easily annoyed or irritable: 2 = More than half the days Feeling afraid as if something awful might happen: 0 = Not at all Total SIERRA-7 score (0-4 normal; 5-9 mild; 10-14 moderate; 15-21 severe): 9 Source: Developed by Drs. Braydon Cueva, Eliza Denton, Darnell Jimenez and colleagues, with an educational christiano from [employer]. Review of Systems Const Denies chills, Denies fatigue, Denies fever(s) and Denies poor appetite Eyes Denies no additional complaints ENT Reports Normal hearing present Card Denies chest pain, Denies syncope, Denies rapid heart rate and Denies dyspnea Resp Denies cough and Denies dyspnea GI Denies change in stool character, Denies constipation, Denies diarrhea, Denies nausea and Denies vomiting Denies urinary frequency, Denies dysuria and Denies urinary urgency Neuro Reports Normal hearing present, Denies confusion and Denies syncope Psych Denies confusion Endo Denies fatigue Physical exam (Primary Care) Vital Signs: Last Vital Signs Pulse 63 07/19/23 13:51 BP 110/70 07/19/23 13:51 Pulse Ox 99 07/19/23 13:51 Oxygen Delivery Method Room Air 07/19/23 13:51 BMI result Body Mass Index 37.9 Tobacco/Smoking Status: Tobacco use Status Tobacco use date assessed 07/19/23 07/19/23 13:57 Patient Tobacco Use Status Never used Tobacco 07/19/23 13:57 e-Cigarette/Vaping Use Never Used 07/19/23 13:57 PHQ-9: PHQ-9 Score PHQ-9: Total score 8 07/19/23 14:03 Depression Screening Interpretation: Positive Thrive Assessment: Date of Thrive Assessment Date Thrive assessed 07/19/23 07/19/23 13:57 Currently or been in a relationship where the following occur: no concerns reported Const General: No confusion Orientation/consciousness: No confusion HENMT Head: Yes normocephalic and Yes atraumatic Eyes Conjunctivae: conjunctivae normal Chest Chest palpation & inspection: normal inspection of the chest Resp Effort & Inspection: normal respiratory effort Auscultation: clear to auscultation bilaterally, no crackles, no rhonchi and no wheezes Cardio Rate: regular rate Rhythm: regular rhythm Heart sounds: S1 normal heart sound present and S2 normal heart sound present GI Inspection: Yes normal to inspection Neuro General: No confusion Cranial nerves: Yes Normal hearing present Extrem General: No edema Assessment and Plan Assessment & Plan (1) Obesity (BMI 30-39.9): Code(s): E66.9 - Obesity, unspecified Plan: Ozempic 0.2 mg q.week sent to patient's pharmacy. Patient advised to continue to eat a well-balanced diet and exercise to decrease BMI. Referral entered to weight management program. Plan Follow-up in 4 months for annual physical exam. Orders: Orders Comprehensive Met. Panel Today Z13.1 - Encounter for screening for diabetes mellitus Complete Blood Count Auto Diff Today Z13.0 - Encounter for screening for diseases of the blood and blood-forming organs and certain disorders involving the immune mechanism Vitamin D 25-OH Total Today Z13.21 - Encounter for screening for nutritional disorder TSH reflex Free T4 Today Z13.29 - Encounter for screening for other suspected endocrine disorder Referrals Medical Weight Management Referral E66.9 - Obesity, unspecified Medications: New semaglutide (Ozempic) for 4 weeks 0.25 mg (0.368 mL) subcut QWEEK 3 mL 0RF E66.9 - Obesity, unspecified Coding Level of Care Code Est Pt Level 3 (81246) Diagnoses Obesity (BMI 30-39.9) E66.9
[2023-07-19 13:51] VITALS: BP 110/70; PULSE 63; O2SAT 99; BMI 37.9
== END 2023-07-19 14:12 | disposition home or self-care (01) ==
PROVIDERS: PCP Internal Medicine; Visit Provider Nurse Practitioner Family
DX: E66.9 Obesity, unspecified (principal); Z68.37 Body mass index [BMI] 37.0-37.9, adult
CPT/HCPCS: 99213

== ENCOUNTER 2023-08-10 11:28 | Outpatient (REF) | payer OTHER, SELFPAY ==
--- NOTE | ~2023-08-10 | MR_ITS ---
EXAMINATION: MR BREAST WITHOUT AND WITH CONTRAST, BILATERAL CLINICAL INFORMATION: 32-year-old status post right lumpectomy 2020 COMPARISON: Correlation to mammogram of 04/02/2023 TECHNIQUE: Imaging was performed with a dedicated breast coil. Prior to the administration of contrast, bilateral axial T1 and bilateral axial T2 weighted sequences were obtained. After the uneventful administration of?10 mL of Gadavist, dynamic contrast-enhanced VIBRANT series through the breasts in the axial plane were performed. Subtracted images were performed and reviewed. A delayed sagittal sequence through both breasts was acquired. Additionally, CAD post-processing, including maximum intensity projections, 3-D reconstructions and kinetic analysis, were performed an independent workstation and reviewed by the interpreting radiologist is a portion of this exam. FINDINGS: The patient's fibroglandular tissue demonstrates mild background enhancement. LEFT BREAST: No suspicious masslike or non-masslike enhancement. No abnormal skin thickening or nipple retraction. No abnormal architectural distortion. Review of the T2 weighted images demonstrates no fibrocystic changes or dilated ducts. Review of kinetic images reveals no additional findings. RIGHT BREAST: There is architectural distortion in the upper outer quadrant from prior lumpectomy. There is no associated enhancement. There are no suspicious masslike or nonmasslike enhancement. There are no additional findings on T2-weighted imaging or kinetic curve analysis. There is no suspicious internal mammary chain or axillary adenopathy. Limited views of the chest and abdomen are unremarkable. MR/MR breast BI wo/w con IMPRESSION: Postlumpectomy changes in the right breast. No MR findings suspicious of malignancy. ASSESSMENT: LEFT BREAST: BI-RADS 1-Negative RIGHT BREAST: BI-RADS 2 benign RECOMMENDATIONS: Routine mammographic imaging as per most recent study and MRI as per high-risk protocol.
[2023-08-10] MEDS: gadobutroL 10 ML VIAL IVPUSH (12:56)
[2023-08-10 13:13] LABS: MANUAL DIFF FLAG NO
[2023-08-10 13:37] LABS: Basophils Percent Auto 0.6 % (0-2); Eosinophils Absolute Auto 0.4 X10*3/uL (0.0-0.4); Eosinophils Percent Auto 5.9 % (0-4); Hematocrit 40.3 % (37.0-47.0); Imm Gran Abs Auto 0.03 X10*3/uL (0.00-0.03); Imm Gran Pct Auto 0.5 % (0.0-0.4); Lymphocytes Absolute Auto 1.9 X10*3/uL (1.2-4.9); Lymphocytes Percent Auto 27.8 % (20-40); Mean Corpuscular HGB Conc 34.7 g/dl (31.0-35.0); Mean Corpuscular Volume 89.2 fL (80.0-98.0); Mean Platelet Volume 9.3 fL (9.4-12.3); Monocytes Absolute Auto 0.5 X10*3/uL (0.1-1.2); Neutrophils Absolute Auto 3.8 x10*3/uL (2.0-8.3); Neutrophils Percent Auto 57.2 % (45-73); Platelet Count 343 X10*3/uL (160-400); Red Blood Count 4.52 X10*6/uL (4.20-5.50); Red Cell Distribution Width 11.7 % (11.0-16.0); White Blood Count 6.7 X10*3/uL (4.8-10.8)
[2023-08-10 14:49] LABS: Alanine Aminotransferase 156 U/L (0-31); Albumin Level 4.4 g/dL (3.5-5.0); Alkaline Phosphatase 56 U/L (39-117); Anion Gap 12 (12-20); Aspartate Amino Transferase 69 U/L (5-31); Bilirubin Total 0.5 mg/dL (0.0-1.0); Blood Urea Nitrogen 9 mg/dL (9-16); Calcium 9.7 mg/dL (8.4-10.2); Carbon Dioxide 24 mmol/L (22-29); Chloride 107 mmol/L (96-108); Estimated Glomerular Filt Rate > 60; Glucose Random 90 mg/dL (60-115); Potassium 4.1 mmol/L (3.3-5.1); Sodium 139 mmol/L (135-145); Total Protein 7.6 g/dL (6.5-8.0)
[2023-08-10 15:09] LABS: TSH reflex Free T4 1.19 uIU/mL (0.32-4.0); Vitamin D 25-OH Total 20.3 ng/mL (>30)
== END 2023-08-10 11:29 | disposition home or self-care (01) ==
LOC: HO.MRI 11:28
PROVIDERS: PCP Internal Medicine; Referring Provider Nurse Practitioner Family; Visit Provider Surgery
DX: Z13.0 Encounter for screening for diseases of the blood and blood-forming organs and certain disorders involving the immune mechanism (principal); Z13.21 Encounter for screening for nutritional disorder; Z13.29 Encounter for screening for other suspected endocrine disorder; D05.11 Intraductal carcinoma in situ of right breast
CPT/HCPCS: 36415; 77049; 80053; 82306; 84443; 85025; A9585

== ENCOUNTER 2023-08-23 09:00 | Outpatient (AMB) | payer OTHER, SELFPAY ==
[2023-08-23 09:01] VITALS: BP 110/64; PULSE 70; O2SAT 99; BMI 35.3
--- NOTE | 2023-08-23 09:01 | MHC.PC.OV ---
Vital Signs 08/23/23 09:01 Height 5 ft 6 in Weight 219 lb 0.2 oz BMI 35.3 BP 110/64 Blood Pressure Location Lt brachial Position Sitting Pulse 70 Pulse Source Pulse Oximeter Pulse Oximetry (%) 99 Oxygen Delivery Method Room Air Intake Visit Reasons: Obesity/Weight Check Lab Animal Technician Required: No Allergies FRUIT Allergy (Mild, Uncoded 08/23/23 09:01) ITCHING OF LIPS AND TONGUE, ONLY SOME FRUITS Tobacco use date assessed: 08/23/23 HPI HPI Comments History of Present Illness Details 32-year-old female past medical history significant for anxiety, obesity, positive GIULIA, ? CHF . Patient of Dr. Bedolla presents today for [facility] follow up patient was started on ozempic 0.2mg last month. Patient currently on 0.5 mg dose weeks 5-8, then will increase to 1 mg. Patient reports few days after the shots she has some nausea, no vomiting. Denies constipation and diarrhea. Patient reports nausea is tolerable and would to continue on the medication. Patient had 16 lb weightloss from 07/19/23. Patient reports on going anxiety related to going to work, during COVID pandemic worked fully remote. However now she is back in the office 3 times per week and is having overwhelming anxiety related to toxic work environment. Patient requesting a note to work fully remote due to pre-existing medical condition of anxiety. Work note given. Patient in the process of establishing care with a counselor. 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 Cognitive needs: No Hearing needs: No Vision needs: Yes (Glasses) Female Reproductive History Menstrual Age of Menarche: 10 Questionnaire Thrive Questionnaire Date Thrive assessed: 07/19/23 AUDIT C Alcohol Use Questionnaire (AUDIT-C) 1. How often do you have a drink containing alcohol?: 2-4 times a month 2. How many drinks containing alcohol do you have on a typical day when you are drinking?: 1 or 2 Total Score: 2 SIERRA-7 AMB Questionnaire SIERRA-7 Date SIERRA - 7 assessed: 07/19/23 Source: Developed by Drs. Braydon Cueva, Eliza Denton, Darnell Jimenez and colleagues, with an educational christiano from [employer]. Review of Systems Const Denies chills, Denies fatigue, Denies fever(s) and Denies poor appetite Eyes Denies no additional complaints ENT Reports Normal hearing present Card Denies chest pain, Denies syncope, Denies rapid heart rate and Denies dyspnea Resp Denies cough and Denies dyspnea GI Denies change in stool character, Denies constipation, Denies diarrhea, Reports nausea and Denies vomiting Denies urinary frequency, Denies dysuria and Denies urinary urgency Neuro Reports Normal hearing present, Denies confusion and Denies syncope Psych Denies confusion Endo Denies fatigue Physical exam (Primary Care) Vital Signs: Last Vital Signs Pulse 70 08/23/23 09:01 BP 110/64 08/23/23 09:01 Pulse Ox 99 08/23/23 09:01 Oxygen Delivery Method Room Air 08/23/23 09:01 BMI result Body Mass Index 35.3 Tobacco/Smoking Status: Tobacco use Status Tobacco use date assessed 08/23/23 08/23/23 09:05 Patient Tobacco Use Status Never used Tobacco 08/23/23 09:05 e-Cigarette/Vaping Use Never Used 08/23/23 09:05 Thrive Assessment: Date of Thrive Assessment Date Thrive assessed 07/19/23 08/23/23 09:05 Const General: No confusion Orientation/consciousness: No confusion HENMT Head: Yes normocephalic and Yes atraumatic Eyes Conjunctivae: conjunctivae normal Chest Chest palpation & inspection: normal inspection of the chest Resp Effort & Inspection: normal respiratory effort Auscultation: clear to auscultation bilaterally, no crackles, no rhonchi and no wheezes Cardio Rate: regular rate Rhythm: regular rhythm Heart sounds: S1 normal heart sound present and S2 normal heart sound present GI Inspection: Yes normal to inspection Neuro General: No confusion Cranial nerves: Yes Normal hearing present Extrem General: No edema Assessment and Plan Assessment & Plan (1) Obesity (BMI 30-39.9): Code(s): E66.9 - Obesity, unspecified Plan: Continue on Ozempic. Patient advised to eat healthy diet and exercise to decrease BMI. (2) Elevated LFTs: Code(s): R79.89 - Other specified abnormal findings of blood chemistry Plan: Patient reminded to get previously ordered repeat LFTs and hepatitis panel completed. Abdominal ultrasound ordered to further evaluate. (3) Anxiety: Code(s): F41.9 - Anxiety disorder, unspecified Plan: Work note given to work fully remote. Patient in the process of establish care with a counselor. Plan Keep scheduled physical exam or follow up sooner if needed. Coding Level of Care Code Est Pt Level 3 (99683) Diagnoses Obesity (BMI 30-39.9) E66.9 Elevated LFTs R79.89 Anxiety F41.9
== END 2023-08-23 09:55 | disposition home or self-care (01) ==
PROVIDERS: PCP Internal Medicine; Visit Provider Nurse Practitioner Family
DX: E66.9 Obesity, unspecified (principal); R79.89 Other specified abnormal findings of blood chemistry; Z68.35 Body mass index [BMI] 35.0-35.9, adult; F41.9 Anxiety disorder, unspecified; Z85.3 Personal history of malignant neoplasm of breast
CPT/HCPCS: 99213

== ENCOUNTER 2023-08-26 14:40 | Outpatient (AMB) | payer OTHER, SELFPAY ==
--- NOTE | 2023-08-26 14:41 | A.OFFPC_ITS ---
Vital Signs 08/26/23 14:42 Height 5 ft 6 in Weight 217 lb BMI 35.0 BP 110/72 Blood Pressure Location Lt brachial Position Sitting Pulse 96 Pulse Source Pulse Oximeter Pulse Oximetry (%) 98 Oxygen Delivery Method Room Air Intake Visit Reasons: physical/paperwork Intake Note: Patient here for a physical exam, paperwork Ink Technician Required: No Accompanied by: Self / Same As Patient Allergies FRUIT Allergy (Mild, Uncoded 08/26/23 14:56) ITCHING OF LIPS AND TONGUE, ONLY SOME FRUITS Medication List - Last Reconciled 08/26/23 by Raquel Russell MD cholecalciferol (vitamin D3) 25 mcg PO DAILY desonide 0.05% 1 appl topical BID 30 days semaglutide (Ozempic) 0.5 mg (0.736 mL) subcut QWEEK semaglutide (Ozempic) 1 mg (0.75 mL) subcut QWEEK Tobacco use date assessed: 08/23/23 Dental Screening Dental Screen Date: 08/26/23 Did you have a dental visit in the last 12 months?: No Did you have a dental problem in the last 6 months where you did not have access to dental care?: No Was dental information given to patient?: Patient has dentist HPI HPI Comments History of Present Illness Details This is a 32-year-old female that comes for her physical exam. Last Pap smear was 2021 was normal. Has history of right breast cancer few years ago in which was treated with radiation and lumpectomy. Follows with breast surgeon and Hematology-Oncology for this matter. Has history of depression with anxiety and panic attacks that have improved while working from home. She gets anxiety and panic attacks when been surrounded by people. No chest pain or shortness of breath. [facility] Medical History (Updated 08/26/23 @ 15:46 by Raquel Russell MD) Ductal carcinoma in situ of right breast Obesity Ductal candidiasis of breast Rash and nonspecific skin eruption Rash on lips Breast cancer screening by mammogram Eczema Surgical History History of lumpectomy of right breast History of lipoma History of cholecystectomy Family History Father Diabetes Hypertension Mother Medical history unknown Maternal Grandfather Stroke Other Mental health disorder Social History Housing: House Alcohol intake: current Alcohol intake frequency: a few times a week Patient Tobacco Use Status: Never used Tobacco e-Cigarette/Vaping Use: Never Used Second Hand Smoke Exposure: No service: No Current occupational status: employed Current occupation: [employer]. Cognitive needs: No Hearing needs: No Vision needs: Yes (Glasses) Female Reproductive History Menstrual Age of Menarche: 10 Questionnaire Thrive Questionnaire Date Thrive assessed: 07/19/23 SIERRA-7 AMB Questionnaire SIERRA-7 Date SIERRA - 7 assessed: 07/19/23 Source: Developed by Drs. Braydon Cueva, Eliza Denton, Darnell Jimenez and colleagues, with an educational christiano from [employer]. Review of Systems Const All systems reviewed & are unremarkable except as noted in HPI and below Eyes Reports no additional complaints, Denies change in vision and Denies other visual disturbances Card Denies chest pain at rest, Denies chest pain with activity, Denies edema, Denies irregular heart rhythm, Denies claudication, Denies dyspnea, Denies dyspnea on exertion, Denies orthopnea, Denies paroxysmal nocturnal dyspnea and Denies slow heart rate Resp Denies cough, Denies dyspnea and Denies dyspnea on exertion GI Denies abdominal pain, Denies change in bowel habits, Denies excessive flatus, Denies nausea and Denies vomiting Denies urinary incontinence, Denies urinary hesitancy and Denies urinary urgency Musc Denies abnormal gait, Denies atrophy, Denies deformity and Denies limited range of motion Skin/Breast Denies bleeding lesions, Denies changing lesions and Denies rash Neuro Denies abnormal gait and Denies lack of coordination Physical exam (Primary Care) Vital Signs: Last Vital Signs Pulse 96 08/26/23 14:42 BP 110/72 08/26/23 14:42 Pulse Ox 98 08/26/23 14:42 Oxygen Delivery Method Room Air 08/26/23 14:42 BMI result Body Mass Index 35.0 Tobacco/Smoking Status: Tobacco use Status Tobacco use date assessed 08/23/23 08/26/23 14:46 Patient Tobacco Use Status Never used Tobacco 08/26/23 14:46 e-Cigarette/Vaping Use Never Used 08/26/23 14:46 Thrive Assessment: Date of Thrive Assessment Date Thrive assessed 07/19/23 08/26/23 14:46 Const Orientation/consciousness: patient oriented x3 HENMT Head: Yes normal to inspection, Yes normocephalic and Yes atraumatic Ears: external ears normal Eyes General: appearance normal, both eyes and all related structures Eyelids: Yes eyelids normal Conjunctivae: conjunctivae normal Neck Neck: Yes normal visual inspection and Yes supple Resp Effort & Inspection: normal respiratory effort Auscultation: clear to auscultation bilaterally Cardio Jugular venous distension: no JVD Rate: regular rate Rhythm: regular rhythm Heart sounds: S1 normal heart sound present and S2 normal heart sound present GI Inspection: Yes normal to inspection Palpation (GI): Soft to palpation and nontender Auscultation: normal bowel sounds Skin General skin exam: no rashes or lesions noted Neuro General: patient oriented x3 and no focal motor deficits Extrem General: Yes full ROM Psych Appearance: grossly normal Office Procedures Flu Questionnaire Does the patient have a severe egg allergy?: No Immunizations flu vacc [id number] 6mos up(PF) 60 mcg(15 mcgx4)/0.5 mL IM syringe Performing Provider: Raquel Russell MD [facility] Documented (not given) by: JOSE Morris on 08/26/23 14:47 Reason Not Given: Patient Refused Assessment and Plan Assessment & Plan (1) Physical exam: Code(s): Z00.00 - Encounter for general adult medical examination without abnormal findings Plan: Repeat in a year. Orders: Orders Influenza [id number] Immunization Today Z23 - Encounter for immunization Coding Level of Care Code Est Pt Prev Care 18-39y(35249) Diagnoses Physical exam Z00.00 Time Spent (min) 32
[2023-08-26 14:42] VITALS: BP 110/72; PULSE 96; O2SAT 98; BMI 35.0
== END 2023-08-26 15:09 | disposition home or self-care (01) ==
PROVIDERS: PCP Internal Medicine; Visit Provider Internal Medicine
DX: Z00.00 Encounter for general adult medical examination without abnormal findings (principal)
CPT/HCPCS: 99395

== ENCOUNTER 2023-09-15 09:46 | Outpatient (REF) | payer OTHER, SELFPAY ==
--- NOTE | ~2023-09-15 | US_ITS ---
EXAMINATION: US ABDOMEN COMPLETE CLINICAL INFORMATION: Other specified abnormal findings of blood chemistry. COMPARISON: CT abdomen and pelvis 11/02/2018. Ultrasound abdomen complete 02/12/2017. TECHNIQUE: Real-time imaging of the abdominal viscera. FINDINGS: PANCREAS: Normal. ABDOMINAL AORTA: The proximal, mid, and distal segments are normal in caliber. INFERIOR VENA CAVA: Visualized portions are normal. LIVER: The liver is normal in size. The liver contour is normal. Increased hepatic echogenicity with regions of focal fatty sparing. No focal hepatic lesion. There is no intrahepatic biliary duct dilatation seen. GALLBLADDER: Surgically absent. COMMON BILE DUCT: Normal in caliber measuring 0.29 cm in diameter. RIGHT KIDNEY: Normal. No hydronephrosis. No renal calculi or focal parenchymal lesions. The kidney measures 12.4 cm in maximum dimension. LEFT KIDNEY: Normal. No hydronephrosis. No renal calculi or focal parenchymal lesions. The kidney measures 12.0 cm in maximum dimension. SPLEEN: Normal. The spleen measures 10.0 cm in maximum dimension. FREE FLUID: None. US/US abdomen complete IMPRESSION: 1. Increased hepatic echogenicity with regions of focal fatty sparing. 2. Status post cholecystectomy.
== END 2023-09-15 09:47 | disposition home or self-care (01) ==
LOC: HO.HMGCX 09:46
PROVIDERS: PCP Internal Medicine; Visit Provider Nurse Practitioner Family
DX: R79.89 Other specified abnormal findings of blood chemistry (principal)
CPT/HCPCS: 76700

== ENCOUNTER 2023-10-12 11:27 | Outpatient (AMB) | payer OTHER, SELFPAY ==
--- NOTE | 2023-10-12 11:29 | MHC.OFFVIS ---
Intake Vital Signs 10/12/23 11:42 Height 6 in Weight 206 lb 4 oz BMI 4027.6 BP 112/66 Blood Pressure Location Lt brachial Position Sitting Intake Visit Reasons: 6 month breast exam Intake Note: Patient is seen in office for 6 months follow up visit, breast exam. Pt c/o:denies any concerns regarding the breast MRI B:08/10/23 mm:04/02/23 Shuttle Inspector Required: No Laborer Airport Maintenance: Laborer Airport Maintenance Present Accompanied by: Self / Same As Patient Allergies FRUIT Allergy (Mild, Uncoded 10/12/23 11:35) ITCHING OF LIPS AND TONGUE, ONLY SOME FRUITS Medication List - Last Reconciled 10/12/23 by Kumar Montejo MD cholecalciferol (vitamin D3) 25 mcg PO DAILY desonide 0.05% 1 appl topical BID 30 days semaglutide (Ozempic) 0.5 mg (0.736 mL) subcut QWEEK semaglutide (Ozempic) 1 mg (0.75 mL) subcut QWEEK HPI HPI Comments History of Present Illness Details 32-year-old female returning for a breast cancer follow-up after diagnosis of right breast ductal carcinoma in-situ. She underwent a stereotactic guided core biopsy on 01/15/2021 which revealed ductal carcinoma in situ, nuclear grade 2 with patchy necrosis and microcalcifications. No invasive carcinoma was seen. ER/NY positive. She underwent right breast lumpectomy with needle localization on 01/31/2021. Pathology revealed no residual DCIS in margins were least 5 mm.. She was evaluated by Dr. Brown and started on tamoxifen following the radiation therapy. Completed radiation therapy at [facility]. Her most recent mammogram performed on 04/06/2023 revealed no significant changes from her prior mammogram (BI-RADS 2). An MRI performed on 08/10/2023 revealed no MR specific suspicious findings (BI-RADS 1 left breast, BI-RADS 2 right breast). She continues to follow with her oncologist in [facility]. My risk genetic results revealed no clinically significant mutations identified.? A variant of uncertain significance was identified at the TP53 gene.? She continues to report mild pain in the right breast and axilla. [facility] Medical History Fatty liver Ductal carcinoma in situ of right breast Obesity Ductal candidiasis of breast Rash and nonspecific skin eruption Rash on lips Breast cancer screening by mammogram Eczema Surgical History History of lumpectomy of right breast History of lipoma History of cholecystectomy Family History Father Diabetes Hypertension Mother Medical history unknown Maternal Grandfather Stroke Other Mental health disorder Social History Housing: House Alcohol intake: current Alcohol intake frequency: a few times a week Patient Tobacco Use Status: Never used Tobacco e-Cigarette/Vaping Use: Never Used Second Hand Smoke Exposure: No service: No Current occupational status: employed Current occupation: [email or web address]. Cognitive needs: No Hearing needs: No Vision needs: Yes (Glasses) Female Reproductive History Menstrual Age of Menarche: 10 Review of Systems Const All systems reviewed & are unremarkable except as noted in HPI and below Resp Denies chest congestion, Denies cough and Denies hemoptysis Denies nipple discharge Skin/Breast Reports as per HPI, Reports breast swelling, Reports breast skin changes, Reports breast pain, Denies lesions and Denies nipple discharge Physical Exam Const General: no acute distress and well developed Nutritional Appearance: well nourished Orientation/consciousness: patient oriented x3 Limitations: no limitations HEENT Head: Yes normocephalic and Yes atraumatic Chest Other: Right breast with firm breast tissue especially in the upper outer quadrant corresponding to the previous incision and radiation change. There is some tenderness near the nipple-areolar complex but no palpable mass. No other skin change, nipple discharge, palpable mass or enlarged lymph nodes appreciated. Left breast reveals no new skin change, nipple discharge, nipple retraction, palpable mass, or enlarged lymph node. Resp Effort & Inspection: normal respiratory effort, no audible wheezes, no cough and no respiratory distress GI Inspection: Yes normal to inspection Skin General skin exam: no rashes or lesions noted Neuro General: patient oriented x3 Extrem General: Yes no clubbing, cyanosis or edema Assessment & Plan Assessment & Plan (1) Ductal carcinoma in situ of right breast: Code(s): D05.11 - Intraductal carcinoma in situ of right breast Plan 32-year-old female patient diagnosed with DCIS approximately 2.5 years ago, s/p right breast lumpectomy with needle localization. She subsequently underwent radiation therapy at [facility]. Examination today reveals no suspicious findings in either breast. There is still postoperative changes in the right breast but no new suspicious findings. Yearly mammogram performed on 04/06/2023 revealed no significant changes (BI-RADS 2), and MRI performed on 08/10/2023 revealed no MR specific evidence of malignancy (BI-RADS 1 left breast, BI-RADS 2 right breast). She will continue her oncology follow-up at [facility] and should follow up for clinical breast examination in approximately 6 months. Coding Level of Care Code Est Pt Level 3 (42401) Diagnoses Ductal carcinoma in situ of right breast D05.11
[2023-10-12 11:42] VITALS: BP 112/66; BMI 4027.6
== END 2023-10-12 11:45 | disposition home or self-care (01) ==
PROVIDERS: PCP Internal Medicine; Visit Provider Surgery
DX: D05.11 Intraductal carcinoma in situ of right breast (principal)
CPT/HCPCS: 99213

== ENCOUNTER → 2023-10-12 11:27 | Outpatient (BNVA) | payer OTHER, SELFPAY | PROVIDERS: PCP Internal Medicine; Visit Provider Surgery | DX: Z86.000 Personal history of in-situ neoplasm of breast (principal); Z92.3 Personal history of irradiation | CPT/HCPCS: 99212 ==

== ENCOUNTER 2023-11-05 02:45 | Emergency (ER) | payer OTHER, SELFPAY ==
[2023-11-05 02:57] VITALS: BP 122/80; PULSE 88; RESP 16; TEMP 36.6; O2SAT 96; BMI 32.0
[2023-11-05 04:26] VITALS: BP 118/70; PULSE 86; RESP 17; TEMP 36.6; O2SAT 98
--- NOTE | 2023-11-05 04:31 | PC.NURSE ---
pt from home, a&ox4, respirations even and unlabored. pt reporting abscess under the right arm pit for multiple months, pt reports being seen at urgent care and given antibiotics but pt reports only taking one. pt reports she has a surgery consult for today but reports the pain as increased. pt reports pain increases with movement of the arm. pt noted to have large hard lump under right arm pit, tender to touch. pt denies fever, chills, n/v/d.
--- NOTE | 2023-11-05 06:23 | ED_ITS ---
HPI - General Adult General Chief complaint: Skin/Abscess/Foreign Body Stated complaint: abscess ? Time Seen by Provider: 11/05/23 06:22 Source: patient Mode of arrival: ambulatory Limitations: no limitations History of Present Illness HPI narrative: Patient is a 32-year-old female presenting to the emergency department with complaint of abscess to right axilla for 1 week. Went to urgent care and was prescribed Bactrim and Keflex but states that she has only been taking the Keflex because she felt that both were excessive. Denies any spontaneous drainage. Denies any fevers, chills, body aches. Has an appointment to see a general surgeon today but is unsure what the plan is. complaint: Abscess Onset (ago): week(s) Location: right (Axilla) Severity: severe Quality: aching Pain Consistency: constant Relieving factors: rest Exacerbating factors: movement Associated symptoms: denies other symptoms Treatments prior to arrival: other Related Data Previous Rx's Medication Instructions Recorded desonide 0.05 % topical ointment 1 appl topical BID 30 days #60 12/15/22 grams semaglutide 0.25 mg or 0.5 mg (2 0.5 mg (0.736 mL) subcut QWEEK #3 07/20/23 mg/3 mL) subcutaneous pen injector mL (Ozempic) cholecalciferol (vitamin D3) 25 25 mcg PO DAILY #30 caps 09/11/23 mcg (1,000 unit) capsule semaglutide 1 mg/dose (4 mg/3 mL) 1 mg (0.75 mL) subcut QWEEK #3 mL 10/07/23 subcutaneous pen injector (Ozempic) Allergies Allergy/AdvReac Type Severity Reaction Status Date / Time FRUIT Allergy Mild ITCHING OF Uncoded 10/12/23 11:35 LIPS AND TONGUE, ONLY SOME FRUITS Review of Systems 2 Review of Systems: As per HPI. Yes all other systems are reviewed and are negative Constitutional: Constitutional: Reports as per HPI PMF Past Medical History Medical History Fatty liver Ductal carcinoma in situ of right breast Obesity Ductal candidiasis of breast Rash and nonspecific skin eruption Rash on lips Breast cancer screening by mammogram Eczema Surgical History History of lumpectomy of right breast History of lipoma History of cholecystectomy Family History Family History Father Diabetes Hypertension Mother Medical history unknown Maternal Grandfather Stroke Other Mental health disorder Social History Social History Housing: House Alcohol intake: current Alcohol intake frequency: holidays/special occasions only Patient Tobacco Use Status: Never used Tobacco Smoked in Last 30 Days: No e-Cigarette/Vaping Use: Never Used Second Hand Smoke Exposure: No Use of substances other than those prescribed or required for medical reasons: No Advance Directives: No Advance Directives Information Provided: Yes Patient : No service: No Current occupational status: employed Current occupation: [employer]. Cognitive needs: No Hearing needs: No Vision needs: Yes (Glasses) Physical Exam ED Vital Signs: Vital Signs - 24 hr 11/05/23 02:57 11/05/23 04:26 11/05/23 06:26 Temperature 98 F 97.8 F 98.1 F Pulse Rate 88 86 86 Respiratory Rate 16 17 18 Blood Pressure 122/80 118/70 118/76 Pulse Oximetry 96 98 98 Oxygen Delivery Method Room Air Room Air Room Air BMI result Body Mass Index 32.0 Vital signs have been reviewed and appear to be correct. Blood pressure normal. Heart rate normal. Respiratory rate normal. Temperature normal. Oxygen saturation normal. Const General: cooperative, healthy appearing and no acute distress Orientation/consciousness: oriented to person, oriented to place, oriented to time and patient oriented x3 Limitations: no limitations [facility] Head: Yes normocephalic and Yes atraumatic Ears: external ears normal General nose exam: Normal external nose present Face and sinus: Yes face symmetric Mouth: oropharynx normal and moist mucous membranes Throat: Yes uvula midline Eyes Pupils: Equal, round and reactive pupils present Neck Neck: Yes normal visual inspection and Yes supple Chest Chest/axillae images: 2 1. abscess with central area of fluctuation and surrounding induration, minimal erythema/warmth, no spontaneous drainage Resp Effort & Inspection: normal respiratory effort and able to speak in complete sentences Auscultation: clear to auscultation bilaterally Cardio Rate: regular rate Rhythm: regular rhythm Heart sounds: S1 normal heart sound present and S2 normal heart sound present GI Palpation (GI): Soft to palpation and nontender Auscultation: normoactive bowel sounds General: Yes no CVA tenderness Back/Spine/Pelvis Back: no CVA tenderness Skin General skin exam: elasticity normal and turgor normal Neuro General: oriented to person, oriented to place, oriented to time, patient oriented x3, moves all extremities, no focal motor deficits and CN's II-XI intact bilaterally Cranial nerves: Yes Equal, round and reactive pupils present Cognition (Neuro): normal cognition Extrem General: Yes full ROM, Yes no pedal edema and Yes no calf tenderness Psych Mental Status: mental status grossly normal Affect: normal affect Thought process: Normal thought process present Medical Decision Making Medical Decision Making MDM Narrative: Patient is a 32-year-old female presenting to the emergency department with complaint of abscess to right axilla for 1 week. On exam patient is awake, A+Ox3, VS WNL, afebrile, normal neurological exam without focal deficits, physical exam findings as above. Physical exam findings consistent with abscess. Do not suspect cellulitis. Patient initially requesting immediate incision and drainage for relief of pressure. After initial assessment patient reporing history of breast cancer with lumpectomy and radiation on same side, and is now stating that she prefers to wait until her appointment with the surgeon later today and does not wish to proceed with I&D at this time. Discussed with patient that she should begin taking the Bactrim as prescribed and discussed with patient the rationale for this, patient verbalized understanding. Return precautions discussed at bedside. Patient verbalized understanding of and agreement with plan. Differential Diagnosis Differential Diagnoses: The differential diagnosis associated with the presentation includes As per MDM. External Record Review External record reviewed: Inpatient record, Office record and Outpatient record Discharge Plan Discharge Clinical Impression: Abscess of axilla, right Patient Disposition: Home, Self-Care Instructions: Abscess (ED), Abscess Follow-up (ED) Additional Instructions: You were evaluated in the emergency department today for an abscess to your right armpit. Please keep the follow-up appointment with the surgeon later today. Please begin taking the Bactrim that was prescribed to you as well as the cephalexin. Return to the emergency department if you develop increasing redness, swelling, fever 100.4? F or greater or any other concerning symptoms. Prescriptions: No Action desonide 0.05 % ointment 1 appl topical BID 30 Days Qty: 60 11RF Ozempic 0.25 mg or 0.5 mg (2 mg/3 mL) pen injector 0.5 mg subcut QWEEK Qty: 3 3RF Rx Instructions: Week 5 through week 8: 0.5 mg once weekly. cholecalciferol (vitamin D3) 25 mcg (1,000 unit) capsule 25 mcg PO DAILY Qty: 30 3RF Ozempic 1 mg/dose (4 mg/3 mL) pen injector 1 mg subcut QWEEK Qty: 3 0RF Rx Instructions: 1mg Weekly weeks 9-12
[2023-11-05 06:26] VITALS: BP 118/76; PULSE 86; RESP 18; TEMP 36.7; O2SAT 98
== END 2023-11-05 07:05 | disposition home or self-care (01) ==
PROVIDERS: Emergency Provider Internal Medicine; PCP Internal Medicine
DX: L02.411 Cutaneous abscess of right axilla (principal)
CPT/HCPCS: 10060; 99212; 99284

== ENCOUNTER 2023-11-05 09:49 | Outpatient (AMB) | payer OTHER, SELFPAY ==
--- NOTE | 2023-11-05 09:53 | A.OFFVIS_ITS ---
Intake Vital Signs 3 11/05/23 10:05 Height 5 ft 6 in Weight 203 lb BMI 32.8 BP 109/71 Blood Pressure Location Lt brachial Position Sitting Pulse 84 Intake Visit Reasons: cyst under right armpit at radiation site Intake Note: Patient is seen in office for evaluation of a cyst under the right armpit. 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: No Accompanied by: Self / Same As Patient Allergies FRUIT Allergy (Mild, Uncoded 11/05/23 10:04) ITCHING OF LIPS AND TONGUE, ONLY SOME FRUITS Medication List - Last Reconciled 11/05/23 by Kumar Montejo MD cholecalciferol (vitamin D3) 25 mcg PO DAILY desonide 0.05% 1 appl topical BID 30 days semaglutide (Ozempic) 0.5 mg (0.736 mL) subcut QWEEK semaglutide (Ozempic) 1 mg (0.75 mL) subcut QWEEK HPI HPI Comments 2 History of Present Illness0 Details 32-year-old female patient with previous history of 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 She was seen in the walk-in clinic and started on antibiotics. The site has increased in size and pain. She was subsequently evaluated in the emergency department today but presents today for possible incision and drainage. [facility] Medical History Fatty liver Ductal carcinoma in situ of right breast Obesity Ductal candidiasis of breast Rash and nonspecific skin eruption Rash on lips Breast cancer screening by mammogram Eczema Surgical History History of lumpectomy of right breast History of lipoma History of cholecystectomy Family History Father Diabetes Hypertension Mother Medical history unknown Maternal Grandfather Stroke Other Mental health disorder Social History Housing: House Alcohol intake: current Alcohol intake frequency: holidays/special occasions only Patient Tobacco Use Status: Never used Tobacco e-Cigarette/Vaping Use: Never Used Second Hand Smoke Exposure: No service: No Current occupational status: employed Current occupation: [employer]. Cognitive needs: No Hearing needs: No Vision needs: Yes (Glasses) Female Reproductive History Menstrual Age of Menarche: 10 Review of Systems Const All systems reviewed & are unremarkable except as noted in HPI and below Resp Denies chest congestion, Denies cough and Denies hemoptysis Reports nipple discharge Skin/Breast Reports as per HPI, Reports lesions and Reports nipple discharge Physical Exam Vital Signs: Last Vital Signs Pulse 84 11/05/23 10:05 BP 109/71 11/05/23 10:05 BMI result Body Mass Index 32.8 Const General: no acute distress Nutritional Appearance: well nourished Orientation/consciousness: patient oriented x3 Limitations: no limitations Chest Other: Right axilla with a 4 cm area of erythema with a central fluctuant collection consistent with an abscess, exquisitely tender to palpation. Chest/axillae images: 2 1. Abscess right axilla Resp Effort & Inspection: normal respiratory effort Neuro General: patient oriented x3 Office Procedures I&D Drain Details: Preoperative diagnosis: Abscess right axilla Postoperative diagnosis: Same Procedure: Incision and drainage abscess right axilla Surgeon: Kumar Montejo MD Rn Relief Charge: None Anesthesia: Lidocaine 1% with epinephrine Indications for procedure: One-week history of pain and swelling in the right axilla found to have an area of fluctuance consistent with infected sebaceous cyst Operative findings: Abscess right axilla Specimen: Wound culture Estimated blood loss: Less than 2 mL Complications: None Procedure details: Site of surgery was confirmed by the patient in the right axilla. After informed consent patient was placed in a supine position with her right arm extended overhead. The skin was prepped with Betadine and draped in a sterile fashion. Local was infiltrated over the central portion of the abscess. Incision was then made with a 15 blade and carried down into the abscess cavity. A large purulence collection was then drained. This was then with saline solution. Wounds were then packed with quarter-inch Nu Gauze and covered with a sterile dressings and paper tape. The patient tolerated the procedure well. She was discharged to home in stable condition. [id number] of Skin Abscess, simple All charges added?: Procedure code (CPT) selection complete Assessment & Plan Assessment & Plan (1) Abscess of axilla, right: Code(s): L02.411 - Cutaneous abscess of right axilla Plan 32-year-old female patient with a prior history of DCIS of the right breast presenting with an abscess of the right axilla. After discussion of the procedure, risks, and alternatives, she consents to an incision and drainage of the right axilla abscess. Operative findings were consistent with a large abscess with sebaceous material suggestive of a sebaceous cyst abscess. She was instructed on wound care and will return in 1 week for wound examination. Orders: Orders 2 Routine Culture w Gram Stain Today L02.411 - Cutaneous abscess of right axilla Coding Level of Care Code Est Pt Level 3 (14997) Diagnoses Abscess of axilla, right L02.411 CPT Codes I&D Drain - Drain 1: [id number]-[id number] of Skin Abscess, simple ([id number])
[2023-11-05 10:05] VITALS: BP 109/71; PULSE 84; BMI 32.8
== END 2023-11-05 10:23 | disposition home or self-care (01) ==
PROVIDERS: PCP Internal Medicine; Visit Provider Surgery
DX: L02.411 Cutaneous abscess of right axilla (principal)
CPT/HCPCS: 10060; 99213

== ENCOUNTER 2023-11-05 10:21 | Outpatient (REF) | payer OTHER, SELFPAY | END 2023-11-05 10:22 | disposition home or self-care (01) | LOC: HO.LNP 10:21 | PROVIDERS: Visit Provider Surgery | DX: L02.411 Cutaneous abscess of right axilla (principal) | CPT/HCPCS: 87070; 87205 ==

== ENCOUNTER 2023-11-12 09:46 | Outpatient (AMB) | payer OTHER, SELFPAY ==
--- NOTE | 2023-11-12 09:48 | A.OFFVIS_ITS ---
Intake Vital Signs 11/12/23 09:55 Height 5 ft 6 in Weight 202 lb BMI 32.6 BP 129/59 L Blood Pressure Location Lt brachial Position Sitting Pulse 78 Intake Visit Reasons: 1 wk check cyst right armpit at radiation site Intake Note: Patient is seen in office for one week follow up visit, post incision and drainage abscess right axilla. Pt c/o: admits to some discoloration, denies discharge, redness or other concerns Clinical Research Director Required: No Accompanied by: Self / Same As Patient Allergies FRUIT Allergy (Mild, Uncoded 11/12/23 09:48) ITCHING OF LIPS AND TONGUE, ONLY SOME FRUITS HPI HPI Comments History of Present Illness Details Patient returns 1 week following incision and drainage of an abscess of the right axilla. She feels much improved and denies any pain associated with the abscess site. She reports the wick fell out approximately 3 days post incision and drainage and now there is no further discharge noted. She denies any fever or chills. [facility] Medical History Fatty liver Ductal carcinoma in situ of right breast Obesity Ductal candidiasis of breast Rash and nonspecific skin eruption Rash on lips Breast cancer screening by mammogram Eczema Surgical History History of lumpectomy of right breast History of lipoma History of cholecystectomy Family History Father Diabetes Hypertension Mother Medical history unknown Maternal Grandfather Stroke Other Mental health disorder Social History Housing: House Alcohol intake: current Alcohol intake frequency: holidays/special occasions only Patient Tobacco Use Status: Never used Tobacco e-Cigarette/Vaping Use: Never Used Second Hand Smoke Exposure: No service: No Current occupational status: employed Current occupation: [employer]. Cognitive needs: No Hearing needs: No Vision needs: Yes (Glasses) Female Reproductive History Menstrual Age of Menarche: 10 Physical Exam Vital Signs: Last Vital Signs Pulse 78 11/12/23 09:55 BP 129/59 L 11/12/23 09:55 BMI result Body Mass Index 32.6 Chest Other: Right axillary incision and drainage site is clean, dry, and intact. The incision is well healed. No palpable cyst is noted at this time. Assessment & Plan Assessment & Plan (1) Abscess of axilla, right: Code(s): L02.411 - Cutaneous abscess of right axilla Plan The right axillary abscess is now much improved following incision and drainage 1 week ago. I recommended she continue to monitor the site. Should assist redevelop she should call for re-evaluation and possible excision. She will return for her regularly scheduled six-month breast evaluation on 03/28/2024. Coding Level of Care Code Global (65363) Diagnoses Abscess of axilla, right L02.411
[2023-11-12 09:55] VITALS: BP 129/59; PULSE 78; BMI 32.6
== END 2023-11-12 09:58 | disposition home or self-care (01) ==
PROVIDERS: PCP Internal Medicine; Visit Provider Surgery
DX: L02.411 Cutaneous abscess of right axilla (principal); Z48.89 Encounter for other specified surgical aftercare
CPT/HCPCS: 99024

== ENCOUNTER → 2023-11-12 09:46 | Outpatient (BNVA) | payer OTHER, SELFPAY | PROVIDERS: PCP Internal Medicine; Visit Provider Surgery | DX: Z48.817 Encounter for surgical aftercare following surgery on the skin and subcutaneous tissue (principal); Z98.890 Other specified postprocedural states | CPT/HCPCS: 99212 ==

== ENCOUNTER 2024-01-25 09:42 | Outpatient (REF) | payer OTHER, SELFPAY ==
[2024-01-26 05:07] LABS: CT PCR NOT DETECTED (Not Detect.); NG PCR NOT DETECTED (Not Detect.)
[2024-01-26 13:56] LABS: BV Int Neg Control Negative (Negative); BV Int Pos Control Positive (Positive)
== END 2024-01-25 09:43 | disposition home or self-care (01) ==
LOC: HO.LAB 09:42
PROVIDERS: PCP Internal Medicine; Visit Provider Advanced Practice Midwife
DX: Z01.419 Encounter for gynecological examination (general) (routine) without abnormal findings (principal); Z20.2 Contact with and (suspected) exposure to infections with a predominantly sexual mode of transmission; N89.8 Other specified noninflammatory disorders of vagina
CPT/HCPCS: 0353U; 87480; 87510; 87660; 99395

== ENCOUNTER 2024-01-25 09:42 | Outpatient (AMB) | payer OTHER, SELFPAY ==
--- NOTE | 2024-01-25 09:41 | MHC.OFFVIS ---
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 She does not recall ever having an abnormal Pap smear she had breast cancer stage 0 3 years ago and is being followed by Dr. Montejo. She had radiation therapy she could not tolerate tamoxifen. She is due for her mammogram in March and she follows up with him. She is doing well otherwise she is working on weight loss with her primary care provider. Her only concern is that sometimes she gets very very itchy around the edges of her labia and she wonders if it is eczema. She is tending towards using pads more than tampons and leaning towards more natural treatments and is using only 100% cotton. She is using condoms for control. She feels she has been very safe with that. She is used all of the other methods and did not like their side effects. Additionally she can't use anything with estrogen. She says her last period was on 18 was a couple of days late.. She thinks it might be due to stress. [facility] Medical History Fatty liver Ductal carcinoma in situ of right breast Obesity Ductal candidiasis of breast Rash and nonspecific skin eruption Rash on lips Breast cancer screening by mammogram Eczema Surgical History History of lumpectomy of right breast History of lipoma History of cholecystectomy Family History Father Diabetes Hypertension Mother Medical history unknown Maternal Grandfather Stroke Other Mental health disorder Social History Housing: House Alcohol intake: current Alcohol intake frequency: holidays/special occasions only Patient Tobacco Use Status: Never used Tobacco e-Cigarette/Vaping Use: Never Used Second Hand Smoke Exposure: No service: No Current occupational status: employed Current occupation: [employer]. Cognitive needs: No Hearing needs: No Vision needs: Yes (Glasses) Female Reproductive History Menstrual Age of Menarche: 10 Duration of menses: 6-7 days Date of last menstrual period: 12/29/23 control method: none Total pregnancies: 1 Full term: 1 Date of last pap smear: 07/29/22 (negative,previous pap 2018 WNL) History of abnormal pap smear: No Date of Mammogram: 04/02/23 (BI-RAPS 2. benign) Physical Exam Vital Signs: Last Vital Signs BP 100/60 01/25/24 09:47 BMI result Body Mass Index 31.6 Const General: healthy appearing, comfortable, no acute distress, well developed and alert Nutritional Appearance: average body habitus Orientation/consciousness: patient oriented x3 Limitations: no limitations HEENT Head: Yes normocephalic Neck Neck: Yes normal visual inspection Chest Other: Right breast is very firm patient states it is since the radiation therapy her next mammogram is in March she follows up with Dr. Montejo. Chest palpation & inspection: normal inspection of the chest Breast/axilla inspection: normal inspection of the breasts and normal inspection of the axillae Breast/axilla palpation: normal palpation of the breasts and normal palpation of the axillae Resp Effort & Inspection: normal respiratory effort GI Inspection: Yes normal to inspection, No Abdominal wall edema and No distended Palpation (GI): Soft to palpation and nontender Other: External pelvic exam completely within normal limits no evidence of either aches him a worry yeast today vagina pink and moist cervix multiparous mobile firm nontender abundant clear with tinge of white mucus consistent with ovulatory mucus (inconsistent with date of LMP is (uterus small midposition to anteverted mobile nontender adnexa nontender good tone with kegel. General: Yes bladder normal to palpation External Female Exam: normal external appearance and normal appearance of the urethra Speculum Exam - Vagina: normal appearance of the vagina, normal palpation and normal vaginal discharge Speculum Exam - Cervix: normal appearance of the cervix, normal palpation and nontender Bimanual exam- vagina & uterus: normal bimanual exam, normal palpation, uterine size normal, bladder normal to palpation, consistency normal, normal palpation, uterine mobility normal, uterine shape normal, No Cervical tenderness present, non-tender and no cervical motion tenderness Bimanual Exam- Adnexa, other: normal adnexae, no masses, normal and No adnexal tenderness Neuro General: patient oriented x3 Assessment & Plan Assessment & Plan (1) Obesity (BMI 30-39.9): Code(s): E66.9 - Obesity, unspecified (2) Cervical cancer screening: Comment: 07/29/22 pap= neg w neg hpv. Code(s): Z12.4 - Encounter for screening for malignant neoplasm of cervix (3) Encounter for screening for infections with predominantly sexual mode of transmission: Code(s): Z11.3 - Encounter for screening for infections with a predominantly sexual mode of transmission (4) control counseling: Code(s): Z30.09 - Encounter for other general counseling and advice on contraception (5) Ductal carcinoma in situ of right breast: Code(s): D05.11 - Intraductal carcinoma in situ of right breast (6) Vaginal itching: Comment: Not currently but discussed in detail we will do p.r.n. script for Monistat. Code(s): N89.8 - Other specified noninflammatory disorders of vagina Plan -----Discussed in this visit the following: healthy balanced diet, regular and consistent exercise, getting recommended health screens, doing the best she can for her particular health concerns, kegel exercises, pap smear screening and followup recommendations, mammography screening and SBE, normal changes in cycles in her life stage--- . She is following up for her breast cancer with Dr. Montejo and she is going to be getting her yearly mammogram in March. Acknowledged that her right breast is so firm from the radiation therapy that he impossible to feel anything. Discussed skin care vaginal care in great detail she is doing very good job I see no signs of either eczema or yeast at this point but I am giving her prescription for Monistat in case she has symptoms if she were ever to be at increased risk for instance if she was treated with antibiotics she should use it vaginally and externally but if she just has a little tiny bit of itch she could use it just a little bit on the outside where she needs it. Discussed control and increased awareness of signs and symptoms of ovulation and being very very careful with her condoms. Discussed that she appears to be ovulating at the moment so be aware of this and be extra careful and do not be surprised if her period comes in a couple of weeks. She would be due for next Pap smear 5 years from the last 1. Orders: Orders Bacterial Vaginosis Panel Today Z20.2 - Contact with and (suspected) exposure to infections with a predominantly sexual mode of transmission CT NG by PCR Today Z01.419 - Encounter for gynecological examination (general) (routine) without abnormal findings Medications: New miconazole nitrate 2% (Miconazole-7) P.r.n. for symptoms of yeast infection. 1 appful vaginal BEDTIME 7 days 45 grams 1RF Coding Level of Care Code Est Pt Prev Care 18-39y(88063) Diagnoses Obesity (BMI 30-39.9) E66.9 Cervical cancer screening Z12.4 Encounter for screening for infections with predominantly sexual mode of transmission Z11.3 control counseling Z30.09 Ductal carcinoma in situ of right breast D05.11 Vaginal itching N89.8
[2024-01-25 09:47] VITALS: BP 100/60; BMI 31.6
== END 2024-01-25 11:19 | disposition home or self-care (01) ==
PROVIDERS: PCP Internal Medicine; Visit Provider Advanced Practice Midwife
DX: Z01.419 Encounter for gynecological examination (general) (routine) without abnormal findings (principal); D05.11 Intraductal carcinoma in situ of right breast; N89.8 Other specified noninflammatory disorders of vagina; Z30.09 Encounter for other general counseling and advice on contraception; E66.9 Obesity, unspecified
CPT/HCPCS: 99395

== ENCOUNTER 2024-02-16 13:46 | Outpatient (AMB) | payer OTHER, SELFPAY ==
[2024-02-16 14:08] VITALS: BP 108/64; BMI 30.5
--- NOTE | 2024-02-16 14:08 | MHC.PC.OV ---
Vital Signs 02/16/24 14:08 Height 5 ft 6 in Weight 189 lb BMI 30.5 BP 108/64 Blood Pressure Location Lt brachial Position Sitting Intake Visit Reasons: f/u medication Intake Note: Patient here for a follow up medication Head Of Ict Required: No Accompanied by: Self / Same As Patient Allergies FRUIT Allergy (Mild, Uncoded 02/16/24 14:32) ITCHING OF LIPS AND TONGUE, ONLY SOME FRUITS Medication List - Last Reconciled 02/16/24 by Raquel Russell MD cholecalciferol (vitamin D3) 25 mcg PO DAILY desonide 0.05% 1 appl topical BID 30 days miconazole nitrate 2% (Miconazole-7) 1 appful vaginal BEDTIME 7 days semaglutide (Ozempic) 2 mg (0.75 mL) subcut QWEEK 30 days Tobacco use date assessed: 02/16/24 Dental Screening Dental Screen Date: 02/16/24 Did you have a dental visit in the last 12 months?: No Did you have a dental problem in the last 6 months where you did not have access to dental care?: No Was dental information given to patient?: Patient has dentist HPI HPI Comments History of Present Illness Details This is a 33-year-old female with obesity and 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 Breast cancer is follow by Hematology-Oncology in which patient did not tolerate tamoxifen. She is obese with a BMI of 30.5 and has lost weight due to Ozempic. No chest pain or shortness of breath. She also complains of abdominal pain that is diffuse throughout but more prominent in lower quadrants and I will order CT scan of the abdomen to rule out diverticulitis. No fever. [facility] Medical History (Updated 02/16/24 @ 17:30 by Raquel Russell MD) Fatty liver Ductal carcinoma in situ of right breast Obesity Ductal candidiasis of breast Rash and nonspecific skin eruption Rash on lips Breast cancer screening by mammogram Eczema Surgical History History of lumpectomy of right breast History of lipoma History of cholecystectomy Family History Father Diabetes Hypertension Mother Medical history unknown Maternal Grandfather Stroke Other Mental health disorder Social History Housing: House Alcohol intake: current Alcohol intake frequency: holidays/special occasions only Patient Tobacco Use Status: Never used Tobacco e-Cigarette/Vaping Use: Never Used Second Hand Smoke Exposure: No service: No Current occupational status: employed Current occupation: [employer]. Current occupational exposures/hazards: No Cognitive needs: No Hearing needs: No Vision needs: Yes (Glasses) Female Reproductive History Menstrual Age of Menarche: 10 Questionnaire PHQ-9 Over the last 2 weeks, how often have you been bothered by any of the following problems? 1. Little interest or pleasure in doing things: not at all 2. Feeling down, depressed, or hopeless: several days 3. Trouble falling or staying asleep, or sleeping too much: not at all 4. Feeling tired or having little energy: not at all 5. Poor appetite or overeating: not at all 6. Feeling bad about yourself - or that you are a failure or have let yourself or your family down: not at all 7. Trouble concentrating on things, such as reading the newspaper or watching television: not at all 8. Moving or speaking so slowly that other people could have noticed. Or the opposite - being so fidgety or restless that you have been moving around a lot more than usual: not at all 9. Thoughts that you would be better off or of hurting yourself in some way: not at all Total score: 1 Source: Developed by Drs. Braydon Cueva, Eliza Denton, Darnell Jimenez and colleagues, with an educational christiano from [employer]. Thrive Questionnaire Date Thrive assessed: 02/16/24 I am a: Patient What is your living situation today?: I have a steady place to live Within the past 12 months, did the food you bought not last and you didn't have the money to get more?: Never true Within the past 12 months, did you worry whether your food would run out before you got money to buy more?: Never true Do you have trouble paying for medicines?: No Do you have trouble getting transportation to medical appointments?: No Do you have trouble paying your heating and electricity bill?: No Do you have trouble taking care of your child, family member or friend?: No Do you have trouble with day-to-day activities such as bathing, preparing meals, shopping, managing finances, etc.?: No Are you currently unemployed and looking for a job?: No Are you interested in more education?: No Please select the resources that you would like help with: None Currently or been in a relationship where the following occur: no concerns reported THRIVE Score: 0 AUDIT C Alcohol Use Questionnaire (AUDIT-C) 1. How often do you have a drink containing alcohol?: Monthly or less 2. How many drinks containing alcohol do you have on a typical day when you are drinking?: 1 or 2 3. How often do you have six or more drinks on one occasion?: Never Total Score: 1 SIERRA-7 AMB Questionnaire SIERRA-7 Date SIERRA - 7 assessed: 02/16/24 Feeling nervous, anxious, or on edge: 1 = Several days Not being able to stop or control worryin = Not at all Worrying too much about different things: 0 = Not at all Trouble relaxin = Not at all Being so restless that it is hard to sit still: 0 = Not at all Becoming easily annoyed or irritable: 0 = Not at all Feeling afraid as if something awful might happen: 0 = Not at all Total SIERRA-7 score (0-4 normal; 5-9 mild; 10-14 moderate; 15-21 severe): 1 Source: Developed by Drs. Brayodn Cueva, Eliza Denton, Darnell Jimenez and colleagues, with an educational christiano from [employer]. Review of Systems Const All systems reviewed & are unremarkable except as noted in HPI and below Eyes Reports no additional complaints, Denies change in vision and Denies other visual disturbances Card Denies chest pain at rest, Denies chest pain with activity, Denies edema, Denies irregular heart rhythm, Denies claudication, Denies dyspnea, Denies dyspnea on exertion, Denies orthopnea, Denies paroxysmal nocturnal dyspnea and Denies slow heart rate Resp Denies cough, Denies dyspnea and Denies dyspnea on exertion GI Reports abdominal pain Physical exam (Primary Care) Vital Signs: Last Vital Signs BP 108/64 02/16/24 14:08 BMI result Body Mass Index 30.5 Tobacco/Smoking Status: Tobacco use Status Tobacco use date assessed 02/16/24 02/16/24 14:13 Patient Tobacco Use Status Never used Tobacco 02/16/24 14:13 e-Cigarette/Vaping Use Never Used 02/16/24 14:13 PHQ-9: PHQ-9 Score PHQ-9: Total score 1 02/16/24 14:43 Thrive Assessment: Date of Thrive Assessment Date Thrive assessed 02/16/24 02/16/24 14:13 Currently or been in a relationship where the following occur: no concerns reported Resp Effort & Inspection: normal respiratory effort Auscultation: clear to auscultation bilaterally Cardio Jugular venous distension: no JVD Rate: regular rate Rhythm: regular rhythm Heart sounds: S1 normal heart sound present and S2 normal heart sound present GI Inspection: Yes normal to inspection Palpation (GI): Soft to palpation and nontender Auscultation: normal bowel sounds Extrem General: Yes full ROM Assessment and Plan Assessment & Plan (1) Ductal carcinoma in situ of right breast: Code(s): D05.11 - Intraductal carcinoma in situ of right breast Plan: Follow-up with Hematology-Oncology. (2) Obesity (BMI 30-39.9): Code(s): E66.9 - Obesity, unspecified Plan: Continue Ozempic. BMI goal is less than 30. (3) Abdominal pain: Code(s): R10.9 - Unspecified abdominal pain Plan: CT scan of abdomen and pelvis ordered. Orders: Orders CT abdomen pelvis wo/w IV con Today R10.9 - Unspecified abdominal pain US thyroid Today E04.9 - Nontoxic goiter, unspecified Thyroid Stimulating Hormone Today E04.9 - Nontoxic goiter, unspecified Free T4 (Free Thyroxine) Today E04.9 - Nontoxic goiter, unspecified Comprehensive [place]. Panel Fast Today R10.9 - Unspecified abdominal pain Medications: Refilled cholecalciferol (vitamin D3) 25 mcg PO DAILY 30 caps 3RF miconazole nitrate 2% (Miconazole-7) P.r.n. for symptoms of yeast infection. 1 appful vaginal BEDTIME 45 grams 1RF 7 days Coding Level of Care Code Est Pt Level 3 (30665) Diagnoses Ductal carcinoma in situ of right breast D05.11 Obesity (BMI 30-39.9) E66.9 Abdominal pain R10.9 Time Spent (min) 20
== END 2024-02-16 14:46 | disposition home or self-care (01) ==
PROVIDERS: PCP Internal Medicine; Visit Provider Internal Medicine
DX: R10.9 Unspecified abdominal pain (principal); D05.11 Intraductal carcinoma in situ of right breast; E66.9 Obesity, unspecified; Z68.30 Body mass index [BMI] 30.0-30.9, adult
CPT/HCPCS: 99213

== ENCOUNTER 2024-02-23 10:58 | Outpatient (REF) | payer OTHER, SELFPAY ==
--- NOTE | ~2024-02-23 | US_ITS ---
EXAMINATION: US THYROID CLINICAL INFORMATION: Nontoxic goiter, unspecified. COMPARISON: None available. TECHNIQUE: Linear transducer grayscale and color Doppler examination with attention to the region of the thyroid. FINDINGS: SIZE: Measurements of the thyroid lobes and nodules are given in sagittal, anteroposterior and transverse dimensions respectively. Right Thyroid Lobe: 4.0 x 1.2 x 1.2 cm, volume 3.0 mL. Parenchyma: The gland echotexture is homogeneous. Thyroid vascularity is normal. Left Thyroid Lobe: 3.7 x 1.1 x 1.4 cm, volume 3.1 mL. Parenchyma: The gland echotexture is homogeneous. Thyroid vascularity is normal. Isthmus: 0.3 cm in maximum AP dimension. No focal thyroid nodule is seen. NODES: No lymphadenopathy is seen in the tissue surrounding the thyroid gland. US/US thyroid IMPRESSION: No focal thyroid nodule is seen. ACR TI-RADS RECOMMENDATION REFERENCE: Ultrasound-guided fine-needle aspiration, followup ultrasound, no further follow up. * TR1 (0 point) and TR2 (2 points): No FNA or follow up. * TR3 (3 points): FNA if more than or equal to 2.5 cm in maximum dimension, followup ultrasound in 1, 3 and 5 years if 1.5 to 2.4 cm in maximum dimension. * TR4 (4-6 points): FNA if more than or equal to 1.5 cm in maximum dimension, followup ultrasound in 1, 2, 3 and 5 years if 1 to 1.4 cm in maximum dimension. * TR5 (more than or equal to 7 points): FNA if more than or equal to 1 cm in maximum dimension, followup ultrasound every year for 5 years if 0.5 to 0.9 cm in maximum dimension. * TR3, TR4 or TR5 nodules that are below the size threshold for followup receive no follow up.
[2024-02-23 13:46] LABS: Alanine Aminotransferase 29 U/L (0-31); Albumin Level 4.1 g/dL (3.5-5.0); Alkaline Phosphatase 54 U/L (39-117); Anion Gap 12 (12-20); Aspartate Amino Transferase 17 U/L (5-31); Bilirubin Total 0.4 mg/dL (0.0-1.0); Blood Urea Nitrogen 8 mg/dL (9-16); Calcium 9.1 mg/dL (8.4-10.2); Carbon Dioxide 25 mmol/L (22-29); Chloride 107 mmol/L (96-108); Estimated Glomerular Filt Rate > 60; Glucose Fasting 89 mg/dL (60-99); Potassium 4.1 mmol/L (3.3-5.1); Sodium 140 mmol/L (135-145)
== END 2024-02-23 10:59 | disposition home or self-care (01) ==
LOC: HO.HMGCX 10:58
PROVIDERS: PCP Internal Medicine; Visit Provider Internal Medicine
DX: E04.9 Nontoxic goiter, unspecified (principal); R10.9 Unspecified abdominal pain
CPT/HCPCS: 36415; 76536; 80053; 84439; 84443

== ENCOUNTER 2024-03-28 09:30 | Outpatient (AMB) | payer OTHER, SELFPAY ==
--- NOTE | 2024-03-28 09:32 | A.OFFVIS_ITS ---
Vital Signs 03/28/24 09:37 Height 5 ft 6 in Weight 186 lb BMI 30.0 BP 107/66 Blood Pressure Location Lt brachial Position Sitting Pulse 71 Intake Visit Reasons: 6 month breast exam Intake Note: Patient is seen in office for 6 month follow up visit, breast exam. Pt c/o: under right breast for a month now, itchy, red, black, ? 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 She underwent a stereotactic guided core biopsy on 01/15/2021 which revealed ductal carcinoma in situ, nuclear grade 2 with patchy necrosis and microcalcifications. No invasive carcinoma was seen. ER/OH positive. She underwent right breast lumpectomy with needle localization on 01/31/2021. Pathology revealed no residual DCIS in margins were least 5 mm.. She was evaluated by Dr. Brown and started on tamoxifen following the radiation therapy. Completed radiation therapy at [facility]. Her most recent mammogram performed on 04/06/2023 revealed no significant changes from her prior mammogram (BI-RADS 2). She has scheduled for a yearly mammogram on 04/07/2024. An MRI performed on 08/10/2023 revealed no MR specific suspicious findings (BI- RADS 1 left breast, BI-RADS 2 right breast). She continues to follow with her oncologist in [facility]. My risk genetic results revealed no clinically significant mutations identified.? A variant of uncertain significance was identified at the TP53 gene.? She reports a 1 month history of a rash below the right breast which she is applying hydrocortisone which seems to be helping. She denies any further problems after incision and drainage of an abscess of the right axilla. [facility] Medical History Fatty liver Ductal carcinoma in situ of right breast Obesity Ductal candidiasis of breast Rash and nonspecific skin eruption Rash on lips Breast cancer screening by mammogram Eczema Surgical History History of lumpectomy of right breast History of lipoma History of cholecystectomy Family History Father Diabetes Hypertension Mother Medical history unknown Maternal Grandfather Stroke Other Mental health disorder Social History Housing: House Alcohol intake: current Alcohol intake frequency: holidays/special occasions only Patient Tobacco Use Status: Never used Tobacco e-Cigarette/Vaping Use: Never Used Second Hand Smoke Exposure: No service: No Current occupational status: employed Current occupation: [employer]. Current occupational exposures/hazards: No Cognitive needs: No Hearing needs: No Vision needs: Yes (Glasses) Female Reproductive History Menstrual Age of Menarche: 10 Review of Systems Const All systems reviewed & are unremarkable except as noted in HPI and below Resp Denies chest congestion, Denies cough and Denies hemoptysis Denies nipple discharge Skin/Breast Reports as per HPI, Reports breast swelling, Reports breast skin changes, Reports breast pain, Denies lesions and Denies nipple discharge Physical Exam Vital Signs: Last Vital Signs Pulse 71 03/28/24 09:37 BP 107/66 03/28/24 09:37 BMI result Body Mass Index 30.0 Const General: no acute distress and well developed Nutritional Appearance: well nourished Orientation/consciousness: patient oriented x3 Limitations: no limitations HEENT Head: Yes normocephalic and Yes atraumatic Chest Other: Right breast with firm breast tissue especially in the upper outer quadrant corresponding to the previous incision and radiation change. There is some tenderness near the nipple-areolar complex but no palpable mass. No other skin change, nipple discharge, palpable mass or enlarged lymph nodes appreciated. Area of skin change below the right breast seems to be in the radiation therapy margin. No red skin is noted at this time. Left breast reveals no new skin change, nipple discharge, nipple retraction, palpable mass, or enlarged lymph node. Resp Effort & Inspection: normal respiratory effort, no audible wheezes, no cough and no respiratory distress GI Inspection: Yes normal to inspection Skin General skin exam: no rashes or lesions noted Neuro General: patient oriented x3 Extrem General: Yes no clubbing, cyanosis or edema Assessment & Plan Assessment & Plan (1) Ductal carcinoma in situ of right breast: Code(s): D05.11 - Intraductal carcinoma in situ of right breast Category: Medical Plan 33-year-old female patient diagnosed with DCIS approximately 2.5 years ago, s/p right breast lumpectomy with needle localization. She subsequently underwent radiation therapy at [facility]. Examination today reveals no suspicious findings in either breast. There is still postoperative changes in the right breast but no new suspicious findings. Yearly mammogram performed on 04/06/2023 revealed no significant changes (BI-RADS 2), and MRI performed on 08/10/2023 revealed no MR specific evidence of malignancy (BI-RADS 1 left breast, BI-RADS 2 right breast). She will continue her oncology follow-up at [facility] and should follow up for clinical breast examination in approximately 6 months. She has scheduled for a follow-up yearly mammogram later this month. Coding Level of Care Code Est Pt Level 3 (22750) Diagnoses Ductal carcinoma in situ of right breast D05.11
[2024-03-28 09:37] VITALS: BP 107/66; PULSE 71
== END 2024-03-28 09:49 | disposition home or self-care (01) ==
PROVIDERS: PCP Internal Medicine; Visit Provider Surgery
DX: D05.11 Intraductal carcinoma in situ of right breast (principal)
CPT/HCPCS: 99213

== ENCOUNTER → 2024-03-28 09:30 | Outpatient (BNVA) | payer OTHER, SELFPAY | PROVIDERS: PCP Internal Medicine; Visit Provider Surgery | DX: D05.11 Intraductal carcinoma in situ of right breast (principal); Z79.810 Long term (current) use of selective estrogen receptor modulators (SERMs); Z17.0 Estrogen receptor positive status [ER+]; Z92.3 Personal history of irradiation | CPT/HCPCS: 99212 ==

== ENCOUNTER 2024-05-17 07:33 | Outpatient (REF) | payer OTHER, SELFPAY ==
--- NOTE | ~2024-05-17 | CT_ITS ---
EXAMINATION: CT ABDOMEN AND PELVIS WITH CONTRAST CLINICAL INFORMATION: Abdominal pain, rule out diverticulitis. COMPARISON: None available. TECHNIQUE: Multidetector volumetric images were obtained from the superior aspect of the liver through the pubic symphysis following administration 85 mL of Omnipaque 350 intravenous contrast. Sagittal and coronal reformatted images were obtained on the technologist's workstation. Oral contrast: No This CT examination was performed using dose optimization techniques as appropriate, variously including the following: *Automated exposure control *Adjustment of mA and/or kV according to patient size (this includes techniques or standardized protocols for targeted exams where dose is matched to indication/reason for exam; i.e. extremities or head) *Use of iterative reconstruction technique DLP: 374 mGy-cm FINDINGS: LUNG BASES: The visualized lung bases are unremarkable. LIVER, GALLBLADDER, AND BILIARY TREE: The liver is normal in size, shape, and attenuation. No focal hepatic lesion or biliary ductal dilatation is present. The gallbladder is unremarkable with no evidence of radiopaque gallstones, gallbladder wall thickening, or obvious pericholecystic inflammatory changes. PANCREAS: Unremarkable. SPLEEN: Unremarkable. ADRENAL GLANDS: Unremarkable. KIDNEYS AND URETERS: The kidneys are normal in size, shape, and attenuation. No hydronephrosis, hydroureter, or calculi seen. No perinephric stranding. BLADDER: Unremarkable. GASTROINTESTINAL TRACT: The small and large bowel are unremarkable. In particular, there is no evidence of diverticulitis, abscess, obstruction or collection. The appendix is unremarkable. ABDOMINAL WALL: No significant hernia is appreciated. LYMPH NODES: Normal. VASCULAR: Unremarkable. PELVIC VISCERA: Unremarkable. A dominant 24 x 17 mm functional cyst/follicle is evident in the right ovary. A crenulated follicle is evident in the left ovary. No specific imaging follow-up is needed. OSSEOUS STRUCTURES: Unremarkable. CT/CT abdomen pelvis w IV con IMPRESSION: No acute findings in the abdomen or pelvis. In particular, there is no CT evidence of diverticulitis. Fleischner guidelines were followed.
[2024-05-17] MEDS: iohexoL 350 MG/ML 75 ML INFUS..BTL 85 ML IV (10:56)
[2024-05-17] MEDS: Barium Sulfate Oral (Mocha) 450 ML ORAL.SUSP 900 ML PO (10:57)
== END 2024-05-17 07:34 | disposition home or self-care (01) ==
LOC: HO.CT 07:33
PROVIDERS: PCP Internal Medicine; Visit Provider Internal Medicine
DX: R10.9 Unspecified abdominal pain (principal)
CPT/HCPCS: 74177; Q9967

== ENCOUNTER 2024-05-17 13:38 | Outpatient (REF) | payer OTHER, SELFPAY ==
--- NOTE | ~2024-05-17 | MM_ITS ---
EXAMINATION: MM DIAGNOSTIC DIGITAL BREAST TOMOSYNTHESIS, BILATERAL CLINICAL INFORMATION: Postop year #3 right breast upper outer lumpectomy for DCIS in January of 2021. Due for yearly. COMPARISON: Mammography: 04/02/2023, 11/28/2021, 07/15/2021, 01/08/2021. TECHNIQUE: Digital breast tomosynthesis is performed in both the craniocaudal and mediolateral oblique views along with computer-aided detection (CAD). Synthesized 2D images are generated from the tomosynthesis. In addition, 2-D spot magnification right CC and ML views were obtained of the lumpectomy site. FINDINGS: There are scattered areas of fibroglandular density (ACR BI-RADS breast composition Category b). Stable appearing upper outer lumpectomy site right breast without suspicious calcifications or new suspicious mass/architectural distortion. Similar mild skin thickening and trabecular coarsening in the right breast, improving. No suspicious findings in the either breast. No axillary abnormalities. MM/MM tomosynthesis diagnostic BI IMPRESSION: -There are no findings suspicious for malignancy in either breast. -There are stable post treatment related changes right breast upper outer quadrant, without evidence of any recurrent disease. -This completes 3 year postop surveillance and return to routine annual screening in one year is recommended. ASSESSMENT: BI-RADS BI-RADS 2 - Benign Findings RECOMMENDATION: 1 year F/U Results were provided to the patient at time of visit by the technologist. This patient's information was entered into a reminder system with a target due date for their next mammogram.
== END 2024-05-17 13:39 | disposition home or self-care (01) ==
LOC: HO.MAMMO 13:38
PROVIDERS: PCP Internal Medicine; Visit Provider Surgery
DX: D05.11 Intraductal carcinoma in situ of right breast (principal)
CPT/HCPCS: 77062; 77066

== ENCOUNTER → 2024-05-17 14:00 | Outpatient (BNV) | payer OTHER, SELFPAY | PROVIDERS: PCP Internal Medicine; Visit Provider Radiology Diagnostic Radiology | DX: D05.11 Intraductal carcinoma in situ of right breast (principal) | CPT/HCPCS: 77062; 77066 ==

== ENCOUNTER → 2024-08-30 16:12 | Outpatient (BNVA) | payer OTHER, SELFPAY | PROVIDERS: PCP Internal Medicine; Visit Provider Internal Medicine | DX: Z00.01 Encounter for general adult medical examination with abnormal findings (principal); B00.1 Herpesviral vesicular dermatitis | CPT/HCPCS: 99212; 99395 ==

== ENCOUNTER 2024-08-30 16:13 | Outpatient (AMB) | payer OTHER, SELFPAY ==
[2024-08-30 16:15] VITALS: BP 112/76; BMI 28.2
--- NOTE | 2024-08-30 16:15 | A.OFFPC_ITS ---
Vital Signs 08/30/24 16:15 Height 5 ft 6 in Weight 175 lb BMI 28.2 BP 112/76 Blood Pressure Location Lt brachial Position Sitting Intake Visit Reasons: PE Intake Note: Patient here for a physical exam Cytogenetics Technologist Required: No Accompanied by: Self / Same As Patient Allergies FRUIT Allergy (Mild, Uncoded 08/30/24 16:28) ITCHING OF LIPS AND TONGUE, ONLY SOME FRUITS Medication List - Last Reconciled 08/30/24 by Raquel Russell MD cholecalciferol (vitamin D3) 25 mcg PO DAILY desonide 0.05% 1 appl topical BID 30 days semaglutide (Ozempic) 2 mg (0.75 mL) subcut QWEEK 30 days Tobacco use date assessed: 02/16/24 Dental Screening Dental Screen Date: 02/16/24 HPI HPI Comments History of Present Illness Details The patient is a 33-year-old female presenting with concerns of physical exam. She has recurrent herpes labialis. She reports having experienced three episodes of cold sores over the past two and a half months, which is unusual for her since she has not had an episode for years. The episodes have been occurring since the fall and during the winter months. She has identified stress as a potential factor contributing to the recurrence. In the past, she tolerated cyclovir well during outbreaks but is concerned about frequent episodes within a short period. Previous management with valacyclovir was favorable due to dosing convenience. The patient has a history of right breast cancer in situ, treated with a lumpectomy in 2020, and her last mammogram this year showed normal results. She has a known allergic reaction to fruits that cause itchy lips. Additionally, she has a history of gallbladder removal at age 17 and lipoma removal from the axillary region in 2018. She does not tolerate Tamoxifen. - Annual mammogram with the last one con ducted this year, yielding normal results. - Regular follow-up with OBGYN for annua l gynecological exams, last Pap smear in 2021. - A yearly surveillance plan for breast health post-lumpectomy. [facility] Medical History (Updated 08/30/24 @ 19:27 by Raquel Russell MD) Fatty liver Ductal carcinoma in situ of right breast Obesity Ductal candidiasis of breast Rash and nonspecific skin eruption Rash on lips Breast cancer screening by mammogram Eczema Surgical History History of lumpectomy of right breast History of lipoma History of cholecystectomy Family History Father Diabetes Hypertension Mother Medical history unknown Maternal Grandfather Stroke Other Mental health disorder Social History Housing: House Alcohol intake: current Alcohol intake frequency: holidays/special occasions only Patient Tobacco Use Status: Never used Tobacco e-Cigarette/Vaping Use: Never Used Second Hand Smoke Exposure: No service: No Current occupational status: employed Current occupation: [employer]. Current occupational exposures/hazards: No Cognitive needs: No Hearing needs: No Vision needs: Yes (Glasses) Female Reproductive History Menstrual Age of Menarche: 10 Questionnaire Thrive Questionnaire Date Thrive assessed: 02/16/24 SIERRA-7 AMB Questionnaire SIERRA-7 Date SIERRA - 7 assessed: 02/16/24 Source: Developed by Drs. Braydon Cueva, Eliza Denton, Darnell Jimenez and colleagues, with an educational christiano from [employer]. Review of Systems Const All systems reviewed & are unremarkable except as noted in HPI and below Card Denies chest pain at rest, Denies chest pain with activity, Denies edema, Denies irregular heart rhythm, Denies claudication, Denies dyspnea, Denies dyspnea on exertion, Denies orthopnea, Denies paroxysmal nocturnal dyspnea and Denies slow heart rate Resp Denies cough, Denies dyspnea and Denies dyspnea on exertion Physical exam (Primary Care) Vital Signs: Last Vital Signs BP 112/76 08/30/24 16:15 BMI result Body Mass Index 28.2 Tobacco/Smoking Status: Tobacco use Status Tobacco use date assessed 02/16/24 08/30/24 16:20 Patient Tobacco Use Status Never used Tobacco 08/30/24 16:20 e-Cigarette/Vaping Use Never Used 08/30/24 16:20 Thrive Assessment: Date of Thrive Assessment Date Thrive assessed 02/16/24 08/30/24 16:20 HENMT Head: Yes normal to inspection, Yes normocephalic and Yes atraumatic Ears: external ears normal Eyes General: appearance normal, both eyes and all related structures Eyelids: Yes eyelids normal Conjunctivae: conjunctivae normal Neck Neck: Yes normal visual inspection and Yes supple Resp Effort & Inspection: normal respiratory effort Auscultation: clear to auscultation bilaterally Cardio Jugular venous distension: no JVD Rate: regular rate Rhythm: regular rhythm Heart sounds: S1 normal heart sound present and S2 normal heart sound present GI Inspection: Yes normal to inspection Palpation (GI): Soft to palpation and nontender Auscultation: normal bowel sounds Skin General skin exam: no rashes or lesions noted Neuro General: no focal motor deficits Extrem General: Yes full ROM Psych Appearance: grossly normal Office Procedures Flu Questionnaire Does the patient have a severe egg allergy?: No Immunizations Fluarix Triv [id number] (PF) 45 mcg (15 mcg x 3)/0.5 mL IM syringe Performing Provider: Raquel Russell MD [facility] [place] [facility] Documented (not given) by: JOSE Morris on 08/30/24 16:20 Reason Not Given: Patient Refused Coding Level of Care Code Est Pt Level 3 (44555) Est Pt Prev Care 18-39y(69752) Diagnoses Physical exam Z00.00 Recurrent cold sores B00.1 Time Spent (min) 33 Assessment & Plan Assessment & Plan (1) Physical exam: Code(s): Z00.00 - Encounter for general adult medical examination without abnormal findings Category: Medical (2) Recurrent cold sores: Code(s): B00.1 - Herpesviral vesicular dermatitis Category: Medical Plan 1. Recurrent Herpes Labialis: - Referral to dermatology for further evaluation and management. - Blood work ordered to rule out any underlying immunosuppression. 2. Breast Cancer Surveillance: - Continue with yearly mammogram surveillance. 3. Allergy Management: - Avoid known fruit triggers causing oral itching. Patient was informed and verbally consented to the use of an ambient scribe for clinic note documentation during this visit. During our conversation, I discussed the management of her recurrent herpes labialis and the potential benefit of valacyclovir for its less frequent dosing schedule. We reviewed the possibility of stress and immunosuppression contributing to her recent episodes. I advised on follow-up blood work to assess any underlying causes. A referral to dermatology was provided for further evaluation and management of her condition. I reinforced the importance of continuing annual mammograms given her history of breast cancer in situ and maintaining vigilance in monitoring her health. We discussed avoiding allergenic fruits and maintaining current health maintenance practices. The patient agreed to this plan of care and expressed understanding and approval. Orders: Orders Lipid Panel Today E78.5 - Hyperlipidemia, unspecified Comprehensive [place]. Panel Fast Today Z00.00 - Encounter for general adult medical examination without abnormal findings Vitamin D 25-OH Total Today E55.9 - Vitamin D deficiency, unspecified RAQUEL Reflex Titer and Pattern Today R76.8 - Other specified abnormal immunological findings in serum Erythrocyte Sedimentation Rate Today R76.8 - Other specified abnormal immunolo gical findings in serum Influenza [id number] Immunization Today Z23 - Encounter for immunization Cyclic Citrullinated Peptide Today R76.8 - Other specified abnormal immunological findings in serum Complement C3 Today R76.8 - Other specified abnormal immunological findings in serum Complement C4 Today R76.8 - Other specified abnormal immunological findings in serum Rheumatoid Factor Today R76.8 - Other specified abnormal immunological findings in serum Referrals Dermatology Referral B00.1 - Herpesviral vesicular dermatitis Medications: New valacyclovir 1,000 mg PO Q8H 21 tabs 0RF 7 days Patient Instructions: - Complete blood work this week, observing 8-hour fasting as instructed. - Follow up with dermatology for further evaluation of recurrent cold sores. - Utilize valacyclovir for management of herpes labialis outbreaks, ensuring adequate hydration. - Continue with regular annual mammograms and follow-ups with OBGYN. - Avoid fruits that trigger allergic reactions. _[id number]
== END 2024-08-30 16:39 | disposition home or self-care (01) ==
PROVIDERS: PCP Internal Medicine; Visit Provider Internal Medicine
DX: Z00.00 Encounter for general adult medical examination without abnormal findings (principal); B00.1 Herpesviral vesicular dermatitis

== ENCOUNTER 2025-07-19 15:53 | Outpatient (AMB) | payer OTHER, SELFPAY ==
--- NOTE | 2025-07-19 15:56 | A.OFFPC_ITS ---
Vital Signs 07/19/25 15:59 Height 5 ft 6 in Weight 177 lb 2 oz BMI 28.6 BP 110/68 Blood Pressure Location Lt brachial Position Sitting Pulse 81 Pulse Source Pulse Oximeter Temp 97.1 F Temp Source Temporal Artery Scan Pulse Oximetry (%) 100 Oxygen Delivery Method Room Air Intake Visit Reasons: Dizziness and nausea Allergies FRUIT Allergy (Mild, Uncoded 07/19/25 16:01) ITCHING OF LIPS AND TONGUE, ONLY SOME FRUITS Tobacco use date assessed: 07/19/25 Dental Screening Dental Screen Date: 07/19/25 Did you have a dental visit in the last 12 months?: No Did you have a dental problem in the last 6 months where you did not have access to dental care?: No Was dental information given to patient?: Patient has dentist HPI HPI Comments History of Present Illness Details The patient is a 34-year-old female presenting with dizziness and nausea, which are atypical compared to her usual migraine symptoms. The dizziness began a few days ago and is exacerbated by looking up or down, resembling vertigo but without previous episodes of such severity. She denies any falls or significant lightheadedness, although slight dizziness occurs upon standing. The patient has a history of migraines, which sometimes include nausea, but the current episode of dizziness is more severe than previous migraine episodes. She typically manages migraines with rest and occasionally Tylenol, avoiding regular medication use. Recently, she experienced cold-like symptoms two weeks prior, which may be related to the current dizziness, potentially indicating vestibular neuritis. The patient reports feeling more fatigued than usual, attributing it to work demands, but acknowledges it has persisted for several months. She has a history of stage 0 breast cancer, treated with lumpectomy and radiation in 2020, and is unsure about recent lab work related to this conditi on. The patient has not had recent iron levels checked, despite experiencing fatigue, and plans to have labs done at her next appointment. [facility] Medical History Fatty liver Ductal carcinoma in situ of right breast Obesity Ductal candidiasis of breast Rash and nonspecific skin eruption Rash on lips Breast cancer screening by mammogram Eczema Surgical History History of lumpectomy of right breast History of lipoma History of cholecystectomy Family History Father Diabetes Hypertension Mother Medical history unknown Maternal Grandfather Stroke Other Mental health disorder Social History Housing: House Alcohol intake: current Alcohol intake frequency: holidays/special occasions only Patient Tobacco Use Status: Never used Tobacco e-Cigarette/Vaping Use: Never Used Second Hand Smoke Exposure: No service: No Current occupational status: employed Current occupation: [employer]. Current occupational exposures/hazards: No Cognitive needs: No Hearing needs: No Vision needs: Yes (Glasses) Female Reproductive History Menstrual Age of Menarche: 10 Questionnaire PHQ-9 Over the last 2 weeks, how often have you been bothered by any of the following problems? 1. Little interest or pleasure in doing things: several days 2. Feeling down, depressed, or hopeless: several days 3. Trouble falling or staying asleep, or sleeping too much: several days 4. Feeling tired or having little energy: more than half the days 5. Poor appetite or overeating: more than half the days 6. Feeling bad about yourself - or that you are a failure or have let yourself or your family down: not at all 7. Trouble concentrating on things, such as reading the newspaper or watching television: more than half the days 8. Moving or speaking so slowly that other people could have noticed. Or the opposite - being so fidgety or restless that you have been moving around a lot more than usual: not at all 9. Thoughts that you would be better off or of hurting yourself in some way: not at all Total score: 9 Depression Screening Interpretation: Positive Depression Screening Done: Yes 83230 - PHQ-9 Billing: Yes Source: Developed by Drs. Braydon Cueva, Eliza Denton, Darnell Jimenez and colleagues, with an educational christiano from [employer]. Thrive Questionnaire Date Thrive assessed: 07/19/25 I am a: Patient What is your living situation today?: I have a steady place to live Within the past 12 months, did the food you bought not last and you didn't have the money to get more?: Never true Within the past 12 months, did you worry whether your food would run out before you got money to buy more?: Never true Do you have trouble paying for medicines?: No Do you have trouble getting transportation to medical appointments?: No Do you have trouble paying your heating and electricity bill?: No Do you have trouble taking care of your child, family member or friend?: No Do you have trouble with day-to-day activities such as bathing, preparing meals, shopping, managing finances, etc.?: No Are you currently unemployed and looking for a job?: No Are you interested in more education?: No Please select the resources that you would like help with: None Currently or been in a relationship where the following occur: No concerns reported THRIVE Score: 0 AUDIT C Alcohol Use Questionnaire (AUDIT-C) 1. How often do you have a drink containing alcohol?: Monthly or less 2. How many drinks containing alcohol do you have on a typical day when you are drinking?: 1 or 2 3. How often do you have six or more drinks on one occasion?: Never Total Score: 1 SIERRA-7 AMB Questionnaire SIERRA-7 Date SIERRA - 7 assessed: 07/19/25 Feeling nervous, anxious, or on edge: 2 = More than half the days Not being able to stop or control worryin = More than half the days Worrying too much about different things: 2 = More than half the days Trouble relaxin = Several days Being so restless that it is hard to sit still: 1 = Several days Becoming easily annoyed or irritable: 3 = Nearly every day Feeling afraid as if something awful might happen: 1 = Several days Total SIERRA-7 score (0-4 normal; 5-9 mild; 10-14 moderate; 15-21 severe): 12 Source: Developed by Drs. Braydon Cueva, Eliza Denton, Darnell Jimenez and colleagues, with an educational christiano from [employer]. SIERRA-7 Assessment Billing SIERRA-7 Assessment Tool: SIERRA-7 Assessment 62856 Review of Systems Const Details: Positives besides what was mentioned in HPI are in BOLD Constitutional: No Weight Change, No Fever, No Chills, No Night Sweats, No Fatigue, No Malaise ENT/Mouth: No Hearing Changes, No Ear Pain, No Nasal Congestion, No Sinus Pain, No Hoarseness, No sore throat, No Rhinorrhea, No Swallowing Difficulty Eyes: No Eye Pain, No Swelling, No Redness, No Foreign Body, No Discharge, No Vision Changes Cardiovascular: No Chest Pain, No SOB, No PND, No Dyspnea on Exertion, No Orthopnea, No Claudication, No Edema, No Palpitations Respiratory: No Cough, No Sputum, No Wheezing, No Smoke Exposure, No Dyspnea Gastrointestinal: No Nausea, No Vomiting, No Diarrhea, No Constipation, No Pain, No Heartburn, No Anorexia, No Dysphagia, No Hematochezia, No Melena, No Flatulence, No Jaundice Genitourinary: No Dysmenorrhea, No DUB, No Dyspareunia, No Dysuria, No Urinary Frequency, No Hematuria, No Urinary Incontinence, No Urgency, No Flank Pain, No Urinary Flow Changes, No Hesitancy Musculoskeletal: No Arthralgias, No Myalgias, No Joint Swelling, No Joint Stiffness, No Back Pain, No Neck Pain, No Injury History Skin: No Skin Lesions, No Pruritis, No Hair Changes, No Breast/Skin Changes, No Nipple Discharge Neuro: No Weakness, No Numbness, No Paresthesias, No Loss of Consciousness, No Syncope, No Dizziness, No Headache, No Coordination Changes, No Recent Falls Psych: No Anxiety/Panic, No Depression, No Insomnia, No Personality Changes, No Delusions, No Rumination, No SI/HI/AH/VH, No Social Issues, No Memory Changes, No Violence/Abuse Hx., No Eating Concerns Heme/Lymph: No Bruising, No Bleeding, No Transfusions History, No Lymphadenopathy Endocrine: No Polyuria, No Polydipsia, No Temperature Intolerance Physical exam (Primary Care) Vital Signs: Last Vital Signs Temp 97.1 F 07/19/25 15:59 Pulse 81 07/19/25 15:59 BP 110/68 07/19/25 15:59 Pulse Ox 100 07/19/25 15:59 Oxygen Delivery Method Room Air 07/19/25 15:59 BMI result Body Mass Index 28.6 Tobacco/Smoking Status: Tobacco use Status Tobacco use date assessed 07/19/25 07/19/25 16:03 Patient Tobacco Use Status Never used Tobacco 07/19/25 15:58 e-Cigarette/Vaping Use Never Used 07/19/25 15:58 PHQ-9: PHQ-9 Score PHQ-9: Total score 9 07/19/25 16:03 Depression Screening Interpretation: Positive Thrive Assessment: Date of Thrive Assessment Date Thrive assessed 07/19/25 07/19/25 15:58 Currently or been in a relationship where the following occur: No concerns reported Const Other: Pertinent findings are in BOLD GENERAL APPEARANCE NAD, activity normal for age, well developed/ well nourished, no cyanosis, pallor, or diaphoresis. EYES lids/conjunctiva normal. EARS/NOSE/THROAT Mucous membranes moist, nares normal, lips/teeth normal uvula midline without oral pharyngeal erythema, exudate or swelling TMs normal bilaterally. No lymphangitis/lymphedema. HEAD/NECK normocephalic atraumatic, no facial trauma, neck is supple. RESPIRATORY respiratory effort normal, speaks in full sentences, no tripod position, no accessory muscle use. Lungs clear to auscultation without rhonchi, wheezes, rales CARDIAC Regular rate and rhythm, no edema. ABDOMINAL Soft, ND/NT. No evidence of fluid wave. No pulsatile masses on exam, rebound tenderness, Davila sign or pain over Mcburney's point. MUSCLES/EXTREMITIES No abnormal range of motion, no swelling. SKIN Warm, pink and dry. No rashes, dermatoses, petechiae or lesions. NEUROLOGICAL Speech is clear and appropriate. Normal level of consciousness. Gait and coordination are normal. 5/5 strength in all extremities. PSYCH Normal mood and affect. Judgement/competence is appropriate Aguila maneuver negative. Coding Level of Care Code Tele Est Pt Level 4 (76373) Diagnoses Dizziness R42 Abdominal pain R10.9 Fatigue R53.83 Additional Codes SIERRA-7 Assessment Billing - SIERRA-7 Assessment Tool: SIERRA-7 Assessment 44329 ([id number]) PHQ-9 - 49330 - PHQ-9 Billing: Yes ([id number]) Time Spent (min) 30 Assessment & Plan Assessment & Plan (1) Dizziness: Code(s): R42 - Dizziness and giddiness Category: Medical Plan: - Prescribed meclizine for dizziness, to be taken as needed up to twice daily - Considered vestibular neuritis vs vestibular migraines as potential causes, related to recent viral infection (2) Abdominal pain: Code(s): R10.9 - Unspecified abdominal pain Category: Medical Plan: Recommended cutting out dairy, sugar, gluten and red meat and to monitor her symptoms. Diet diary and when she gets symptoms. (3) Fatigue: Code(s): R53.83 - Other fatigue Category: Medical Plan: - Plan to check iron levels and other labs to rule out deficiencies - Discussed dietary changes to manage fatigue, including avoiding dairy and considering gluten-free diet Plan I discussed with the patient the potential causes of her dizziness, including vestibular neuritis related to a recent viral infection, and prescribed meclizine to manage symptoms as needed. We also talked about the possibility of vestibular migraines and the similar treatment approach to her regular migraines, advising the use of Tylenol as needed. Additionally, we planned to check her iron levels and other labs to rule out deficiencies contributing to her fatigue, and discussed dietary changes to improve her overall health. Orders: Orders Complete Blood Count Auto Diff Today Z00.00 - Encounter for general adult medical examination without abnormal findings Hemoglobin A1c Today Z00.00 - Encounter for general adult medical examination without abnormal findings IRON PROFILE Today Z00.00 - Encounter for general adult medical examination without abnormal findings Zinc Today Z00.00 - Encounter for general adult medical examination without abnormal findings TSH reflex Free T4 Today Z00.00 - Encounter for general adult medical examination without abnormal findings Vitamin B12 and Folate Today Z00.00 - Encounter for general adult medical examination without abnormal findings Medications: New meclizine 25 mg PO BID PRN 14 tabs 3RF dizziness Refilled ondansetron 4 mg PO BID PRN 6 tabs 0RF nausea and vomiting 3 days
[2025-07-19 15:59] VITALS: BP 110/68; PULSE 81; TEMP 36.2; O2SAT 100; BMI 28.6
== END 2025-07-19 16:33 | disposition home or self-care (01) ==
LOC: HO.HMCH 15:54
PROVIDERS: PCP Internal Medicine; Visit Provider Internal Medicine
DX: R42 Dizziness and giddiness (principal); R10.9 Unspecified abdominal pain; R53.83 Other fatigue

== ENCOUNTER → 2025-07-19 15:53 | Outpatient (BNVA) | payer OTHER, SELFPAY | PROVIDERS: PCP Internal Medicine; Visit Provider Internal Medicine | DX: R42 Dizziness and giddiness (principal); R10.9 Unspecified abdominal pain; R53.83 Other fatigue; Z13.31 Encounter for screening for depression; Z13.39 Encounter for screening examination for other mental health and behavioral disorders; Z00.00 Encounter for general adult medical examination without abnormal findings | CPT/HCPCS: 96127 ==

== ENCOUNTER 2025-08-28 10:14 | Outpatient (REF) | payer OTHER, SELFPAY ==
[2025-08-28 10:33] LABS: MANUAL DIFF FLAG NO
[2025-08-28 11:12] LABS: Hematocrit 37.2 % (37.0-47.0); Hemoglobin 12.3 g/dl (12.0-16.0); Imm Gran Abs Auto 0.02 X10*3/uL (0.00-0.03); Imm Gran Pct Auto 0.3 % (0.0-0.4); Lymphocytes Absolute Auto 2.0 X10*3/uL (1.2-4.9); Mean Corpuscular HGB Conc 33.1 g/dl (31.0-35.0); Mean Corpuscular Hemoglobin 29.4 pg (27.0-33.0); Mean Corpuscular Volume 89.0 fL (80.0-98.0); NRBC Abs Auto 0.000 X10*3/uL (0.0-0.012); NRBC Pct Auto 0.0 /100WBC (0.0-0.2); Platelet Count 345 X10*3/uL (160-400); Red Blood Count 4.18 X10*6/uL (4.20-5.50); White Blood Count 6.5 X10*3/uL (4.8-10.8)
[2025-08-28 11:47] LABS: Alanine Aminotransferase 16 U/L (0-31); Albumin Level 4.6 g/dL (3.5-5.0); Alkaline Phosphatase 60 U/L (39-117); Anion Gap 12 (12-20); Aspartate Amino Transferase 21 U/L (5-31); Blood Urea Nitrogen 6 mg/dL (9-16); Calcium 9.4 mg/dL (8.4-10.2); Carbon Dioxide 23 mmol/L (22-29); Chloride 108 mmol/L (96-108); Cholesterol 198 mg/dL (<200); Estimated Glomerular Filt Rate > 60; HDL Cholesterol 51 mg/dL (>40); Iron 106 mcg/dL (30-160); Percent Iron Saturation 30 % (15-50); Potassium 4.0 mmol/L (3.3-5.1); Sodium 139 mmol/L (135-145); Total Iron Binding Capacity 359 mcg/dL (228-428); Total Protein 7.5 g/dL (6.5-8.0); Triglycerides 89 mg/dL (<150); Unsaturated Iron Binding 253 ug/dL
[2025-08-28 12:17] LABS: Folate 11.4 ng/mL (> or = 4.0); Vitamin B12 440 pg/mL (200-900)
[2025-08-30 13:13] LABS: Anti Nuclear Antibody Screen POSITIVE (NEGATIVE); Anti Nuclear Antibody Titer 1:320 titer
== END 2025-08-28 10:15 | disposition home or self-care (01) ==
LOC: HO.LAB 10:14
PROVIDERS: Internal Medicine; PCP Internal Medicine; Visit Provider Internal Medicine
DX: Z00.00 Encounter for general adult medical examination without abnormal findings (principal); Z01.84 Encounter for antibody response examination; E78.5 Hyperlipidemia, unspecified; E55.9 Vitamin D deficiency, unspecified; R76.89 Other specified abnormal immunological findings in serum
CPT/HCPCS: 36415; 80053; 80061; 82306; 82607; 82746; 83036; 83540; 84443; 84630; 85025; 85652; 86038; 86039; 86160; 86200; 86431

== ENCOUNTER 2025-09-03 14:19 | Outpatient (AMB) | payer OTHER, SELFPAY ==
[2025-09-03 14:38] VITALS: BP 92/60; PULSE 99; RESP 18; O2SAT 99; BMI 29.1
--- NOTE | 2025-09-03 14:38 | MHC.PC.OV ---
Vital Signs 09/03/25 14:38 Height 5 ft 6 in Weight 180 lb 8 oz BMI 29.1 BP 92/60 Blood Pressure Location Lt brachial Position Sitting Respiration 18 Pulse 99 Pulse Source Pulse Oximeter Temp Source Temporal Artery Scan Pulse Oximetry (%) 99 Oxygen Delivery Method Room Air Intake Visit Reasons: pe Law Office Receptionist Required: No Accompanied by: Self / Same As Patient Allergies FRUIT Allergy (Mild, Uncoded 09/03/25 15:08) ITCHING OF LIPS AND TONGUE, ONLY SOME FRUITS Medication List - Last Reconciled 09/03/25 by Raquel Russell MD cholecalciferol (vitamin D3) 25 mcg PO DAILY desonide 0.05% 1 appl topical BID 30 days meclizine 25 mg PO BID PRN ondansetron 4 mg PO BID PRN 3 days semaglutide (Ozempic) 2 mg (0.75 mL) subcut QWEEK 30 days valacyclovir 1,000 mg PO Q8H 7 days zinc acetate (Galzin) 50 mg PO DAILY Tobacco use date assessed: 09/03/25 Dental Screening Dental Screen Date: 09/03/25 Did you have a dental visit in the last 12 months?: No Did you have a dental problem in the last 6 months where you did not have access to dental care?: No Was dental information given to patient?: No HPI HPI Comments History of Present Illness Details The patient is a 34 year old individual presenting for a physical examination. The patient has a history of joint pain, and recent lab work revealed a highly positive RAQUEL of 1 in 320, though rheumatoid factor and CCP were negative. The patient's lab work also showed low vitamin D, and the patient admits to having stopped taking the supplement for a period. Other labs, including a CBC, CMP, HbA1c of 5.3, iron, and cholesterol, were within normal limits. The patient's past medical history is significant for estrogen and progesterone positive right breast cancer diagnosed in 2020, which was treated with a lumpectomy. The patient's last mammogram report was from , and the patient is due for another screening this year and needs to establish care with a breast surgeon. Past surgical history also includes a lipoma removal in 2018 and a cholecystectomy at age 17. In terms of gynecological health, the patient reports irregular periods with associated pain and perimenopausal symptoms such as night sweats. The patient's mother had fibroids, and the patient has not seen an [employer] in one to two years. The patient is currently taking vitamin D, desonide cream for eczema, meclizine for dizziness, ondansetron, and Ozempic 2 mg for weight loss. The patient inquired about switching to Zepbound but was advised against it. Psychiatric history includes mild depression and occasional panic attacks, for which the patient plans to restart counseling. Social history is negative for smoking, with alcohol consumption limited to holidays and special occasions. Family history is positive for diabetes and hypertension in the patient's father. The patient declined this year's influenza vaccination. [facility] Medical History (Updated 09/03/25 @ 15:40 by Raquel Russell MD) Fatty liver Ductal carcinoma in situ of right breast Obesity Ductal candidiasis of breast Rash and nonspecific skin eruption Rash on lips Breast cancer screening by mammogram Eczema Surgical History History of lumpectomy of right breast History of lipoma History of cholecystectomy Family History Father Diabetes Hypertension Mother Medical history unknown Maternal Grandfather Stroke Other Mental health disorder Social History Housing: House Alcohol intake: current Alcohol intake frequency: holidays/special occasions only Patient Tobacco Use Status: Never used Tobacco e-Cigarette/Vaping Use: Never Used Second Hand Smoke Exposure: No service: No Current occupational status: employed Current occupation: [employer]. Current occupational exposures/hazards: No Cognitive needs: No Hearing needs: No Vision needs: Yes (Glasses) Female Reproductive History Menstrual Age of Menarche: 10 Questionnaire PHQ-9 Over the last 2 weeks, how often have you been bothered by any of the following problems? 1. Little interest or pleasure in doing things: several days 2. Feeling down, depressed, or hopeless: several days 3. Trouble falling or staying asleep, or sleeping too much: several days 4. Feeling tired or having little energy: more than half the days 5. Poor appetite or overeating: more than half the days 6. Feeling bad about yourself - or that you are a failure or have let yourself or your family down: not at all 7. Trouble concentrating on things, such as reading the newspaper or watching television: more than half the days 8. Moving or speaking so slowly that other people could have noticed. Or the opposite - being so fidgety or restless that you have been moving around a lot more than usual: not at all 9. Thoughts that you would be better off or of hurting yourself in some way: not at all Total score: 9 Depression Screening Interpretation: Positive Depression Screening Follow-up: Existing condition and Follow-up Visit Requested Depression Screening Done: Yes 26398 - PHQ-9 Billing: Yes Source: Developed by Drs. Braydon Cueva, Eliza Denton, Darnell Jimenez and colleagues, with an educational christiano from [employer]. Thrive Questionnaire Date Thrive assessed: 09/03/25 I am a: Patient What is your living situation today?: I have a steady place to live Within the past 12 months, did the food you bought not last and you didn't have the money to get more?: Never true Within the past 12 months, did you worry whether your food would run out before you got money to buy more?: Never true Do you have trouble paying for medicines?: No Do you have trouble getting transportation to medical appointments?: No Do you have trouble paying your heating and electricity bill?: No Do you have trouble taking care of your child, family member or friend?: No Do you have trouble with day-to-day activities such as bathing, preparing meals, shopping, managing finances, etc.?: No Are you currently unemployed and looking for a job?: No Are you interested in more education?: No Please select the resources that you would like help with: None Currently or been in a relationship where the following occur: No concerns reported THRIVE Score: 0 AUDIT C Alcohol Use Questionnaire (AUDIT-C) 1. How often do you have a drink containing alcohol?: Monthly or less 2. How many drinks containing alcohol do you have on a typical day when you are drinking?: 1 or 2 3. How often do you have six or more drinks on one occasion?: Never Total Score: 1 Score Reviewed/Action Taken: No SIERRA-7 AMB Questionnaire SIERRA-7 Date SIERRA - 7 assessed: 07/19/25 Feeling nervous, anxious, or on edge: 2 = More than half the days Not being able to stop or control worryin = More than half the days Worrying too much about different things: 2 = More than half the days Trouble relaxin = Several days Being so restless that it is hard to sit still: 1 = Several days Becoming easily annoyed or irritable: 3 = Nearly every day Feeling afraid as if something awful might happen: 1 = Several days Total SIERRA-7 score (0-4 normal; 5-9 mild; 10-14 moderate; 15-21 severe): 12 Source: Developed by Drs. Braydon Cueva, Eliza Denton, Darnell Jimenez and colleagues, with an educational christiano from [employer]. SIERRA-7 Assessment Billing SIERRA-7 Assessment Tool: SIERRA-7 Assessment 96283 Review of Systems Const All systems reviewed & are unremarkable except as noted in HPI and below Card Denies chest pain at rest, Denies chest pain with activity, Denies edema, Denies irregular heart rhythm, Denies claudication, Denies dyspnea, Denies dyspnea on exertion, Denies orthopnea, Denies paroxysmal nocturnal dyspnea and Denies slow heart rate Resp Denies cough, Denies dyspnea and Denies dyspnea on exertion GI Denies abdominal pain, Denies change in bowel habits, Denies excessive flatus, Denies nausea and Denies vomiting Denies urinary incontinence, Denies urinary hesitancy and Denies urinary urgency Physical exam (Primary Care) Vital Signs: Last Vital Signs Pulse 99 09/03/25 14:38 Resp 18 09/03/25 14:38 BP 92/60 09/03/25 14:38 Pulse Ox 99 09/03/25 14:38 Oxygen Delivery Method Room Air 09/03/25 14:38 BMI result Body Mass Index 29.1 Tobacco/Smoking Status: Tobacco use Status Tobacco use date assessed 09/03/25 09/03/25 14:55 Patient Tobacco Use Status Never used Tobacco 09/03/25 14:39 e-Cigarette/Vaping Use Never Used 09/03/25 14:39 PHQ-9: PHQ-9 Score PHQ-9: Total score 9 09/03/25 15:15 Depression Screening Interpretation: Positive Depression Screening Follow-up: Existing condition and Follow-up Visit Requested Thrive Assessment: Date of Thrive Assessment Date Thrive assessed 09/03/25 09/03/25 14:39 Currently or been in a relationship where the following occur: No concerns reported HENMT Head: Yes normal to inspection, Yes normocephalic and Yes atraumatic Ears: external ears normal Eyes General: appearance normal, both eyes and all related structures Eyelids: Yes eyelids normal Conjunctivae: conjunctivae normal Neck Neck: Yes normal visual inspection and Yes supple Resp Effort & Inspection: normal respiratory effort Auscultation: clear to auscultation bilaterally Cardio Jugular venous distension: no JVD Rate: regular rate Rhythm: regular rhythm Heart sounds: S1 normal heart sound present and S2 normal heart sound present GI Inspection: Yes normal to inspection Palpation (GI): Soft to palpation and nontender Auscultation: normal bowel sounds Skin General skin exam: no rashes or lesions noted Neuro General: no focal motor deficits Extrem General: Yes full ROM Psych Appearance: grossly normal Coding Level of Care Code Est Pt Level 3 (35345) Est Pt Prev Care 18-39y(30597) Diagnoses Physical exam Z00.00 Mild major depression F32.0 RAQUEL positive R76.8 Additional Codes SIERRA-7 Assessment Billing - SIERRA-7 Assessment Tool: SIERRA-7 Assessment 93126 ([id number]) PHQ-9 - 31713 - PHQ-9 Billing: Yes ([id number]) Time Spent (min) 30 Assessment & Plan Assessment & Plan (1) Physical exam: Code(s): Z00.00 - Encounter for general adult medical examination without abnormal findings Category: Medical (2) Mild major depression: Code(s): F32.0 - Major depressive disorder, single episode, mild Category: Medical (3) RAQUEL positive: Code(s): R76.8 - Other specified abnormal immunological findings in serum Category: Medical Plan Plan 1. Physical exam Repeat in a year 1. Joint Pain / Positive Antinuclear Antibody The patient reports a history of joint pain. Recent labs revealed a highly positive RAQUEL at a titer of 1:320, which is concerning for an autoimmune or connective tissue disease. Rheumatoid arthritis is less likely given that the rheumatoid factor and CCP were negative. A referral will be placed to Rheumatology for further evaluation. 2. Mild Depression And Panic Attacks The patient reports mild depression and intermittent panic attacks. The patient was encouraged to follow through with plans to restart counseling. Orders: Referrals Rheumatology Referral R76.89 - Other specified abnormal immunological findings in serum
--- OUTSIDE RECORDS SUMMARY | 2025-09-03 19:14 | XMS_ITS | Encounter Summary ---
Author Organization [facility] Address [address] [place] [address] Phone Care Team Providers Care Asbestos Brake Lining Finisher Name Role Phone Raquel Sousa MD Primary Care Provid er Chavez Thomas MD Unavailable [phone] Sophie York RN Unavailable [phone] Encounter Details Date Type Department Care Team (Late st Contact Info) Description 08/11/2021 Ancillary Orders [facility],Outside Imaging [address] [place] [address] System, Provider Not In, PhD [address] [address] Social History Tobacco Use Types Packs/Day Years Used Date Smoking Tobacco: Never Smokeless Tobacco: Never Comments Unknown Sex and Gender Information Value Date Recorded Sex Assigned at Not on file Legal Sex Female 8:52 AM EDT Gender Identity Not on file Sexual Orientation Not on file documented as of this encounter Plan of Treatment Not on file documented as of this encounter Results * Mammogram Outside (No Interpretation) (07/15/2021 12:05 AM EDT) Narrative SYSTEMGENERATED, DOCUMENTATION - 08/11/2021 2:53 PM EDT This study is for PACS storage only and not for interpretation. us Provider Not In System PhD IMG OUTSIDE IMAGING W /OUT INTERPRETATION Final Result * US Breast Outside (No Interpretation) (07/15/2021 12:00 AM EDT) Narrative SYSTEMGENERATED, DOCUMENTATION - 08/11/2021 2:51 PM EDT This study is for PACS storage only and not for interpretation. us Provider Not In System PhD IMG OUTSIDE IMAGING W /OUT INTERPRETATION Final Result documented in this encounter Visit Diagnoses Not on filedocumented in this encounter Care Teams Asbestos Brake Lining Finisher Relationship Specialty Start Date End Date Raquel Sousa MD [address] [place] [address] PCP - General Internal Medicine 03/11/21 Chavez Thomas MD [address] [place] [address] Primary Oncologist Medical Oncology 09/08/21 Sophie York RN [address] [place] [phone] [email or web address] Nurse Navigator 09/15/21 documented as of this encounter Additional Source Comments The information contained in this document represents components of the legal health record. It is not the complete legal health record.[facility]
--- OUTSIDE RECORDS SUMMARY | 2025-09-03 19:14 | XMS_ITS | Encounter Summary ---
Author Organization [facility] Address [address] [place] [address] Phone Care Team Providers Care Divisional Merchandising Manager Name Role Phone Raquel Sousa MD Primary Care Provid er Chavez Thmoas MD Unavailable [phone] Sophie York RN Unavailable [phone] Encounter Details Date Type Department Care Team (Late st Contact Info) Description 04/23/2022 Procedure Pass [facility], [address] [address] Social History Tobacco Use Types Packs/Day Years Used Date Smoking Tobacco: Never Smokeless Tobacco: Never Comments No Sex and Gender Information Value Date Recorded Sex Assigned at Not on file Legal Sex Female 8:52 AM EDT Gender Identity Not on file Sexual Orientation Not on file documented as of this encounter Plan of Treatment Not on file documented as of this encounter Visit Diagnoses Not on filedocumented in this encounter Care Teams Divisional Merchandising Manager Relationship Specialty Start Date End Date Raquel Sousa MD [address] [place] [address] PCP - General Internal Medicine 03/11/21 Chavez Thomas MD [address] [place] [address] Primary Oncologist Medical Oncology 09/08/21 Sophie York, RN [address] [place] [address] [email or web address] Nurse Navigator 09/15/21 documented as of this encounter Additional Source Comments The information contained in this document represents components of the legal health record. It is not the complete legal health record.[facility]
--- OUTSIDE RECORDS SUMMARY | 2025-09-03 19:14 | XMS_ITS | Encounter Summary ---
Author Organization [facility] Address [address] [place] [address] Phone Care Team Providers Care Cobbler Apprentice Name Role Phone Raquel Sousa MD Primary Care Provid er Chavez Thomas MD Unavailable [phone] Sophie York RN Unavailable [phone] Encounter Details Date Type Department Care Team (Late st Contact Info) Description 11/10/2021 Procedure Pass [facility], [address] [address] Social History Tobacco Use Types Packs/Day Years [...] on filedocumented in this encounter Care Teams Cobbler Apprentice Relationship Specialty Start Date End Date Raquel Sousa MD [address] [place] [address] PCP - General Internal Medicine 03/11/21 Chavez Thomas MD [address] [place] [address] Primary Oncologist Medical Oncology 09/08/21 Sophie York, RN [address] [place] [address] [email or web address] Nurse Navigator 09/15/21 documented as of this encounter Additional Source Comments The information contained in this document represents components of the legal health record. It is not the complete legal health record.[facility]
--- OUTSIDE RECORDS SUMMARY | 2025-09-03 19:14 | XMS_ITS | Clinical Summary ---
Author Organization [facility] Address [address] [employer] [facility] [address] [place] [address] Phone Care Team Providers Care Histotechnologist Name Role Phone Raquel Sousa MD Primary Care Provid er Chavez Thomas MD Unavailable [phone] Sophie York RN Unavailable [phone] Allergies Active Allergy Reactions Criticality Noted Date Comments Cranberry Fruit Extract 09/15/2021 ALL FRUITS Medications cholecalciferol (VITAMIN D3) 2,000 unit capsule Take 1,000 Units by mouth daily. Active tamoxifen (NOLVADEX) 10 MG tablet Take 10 mg by mouth daily. Active silver sulfADIAZINE (SILVADENE) 1 % cream Apply to affected area daily 3x daily 400 g 1 Active Additional Information Patient not taking.Reported on 04/30/2022 Active Problems Patient Care Coordination No te Formatting of this note migh t be different from the original. HEIGHT 168.2CM NO SHOES TAKEN BY OC 09/15/2021 Problem Noted Date Diagnosed Date Ductal carcinoma in situ (DCIS) of right breast 03/13/2021 Immunizations Immunization Administration Dates Next Due INFLUENZA, SPLIT VIRUS, TRIVALENT W/ PRESERVATIV E IM 09/09/2015 Tdap 08/22/2018 Family History Medical History Relation Comments Cancer Maternal Great-Grandmother 1 Breast cancer Maternal Great-Grandmother 2 Relation Status Comments Maternal Great-Grandmother 1 Maternal Great-Grandmother 2 Social History Tobacco Use Types Packs/Day Years Used Date Smoking Tobacco: Never Smokeless Tobacco: Never Education Answer Date Recorded Are you interested in more education? Not on nara e 02/06/2023 Are you concerned about learning? Not on file 02/06/2023 No 02/06/2023 No 02/06/2023 Digital Access Answer Date Recorded No 03/06/2023 No 03/06/2023 No 03/06/2023 Reliable internet access at home? Not on file 03/06/2023 Device with a working camera? Not on file Comments No Sex and Gender Information Value Date Recorded Sex Assigned at Not on file Legal Sex Female 8:52 AM EDT Gender Identity Not on file Sexual Orientation Not on file Last Filed Vital Signs Vital Sign Reading Time Taken Comments Blood Pressure 93/53 05/25/2022 1:00 AM EDT Pulse 56 05/25/2022 1:00 AM EDT Temperature 35.7 C (96.3 F) 05/25/2022 1:00 AM EDT Respiratory Rate 16 05/25/2022 1:00 AM EDT Oxygen Saturation 98% 05/25/2022 1:00 AM EDT Inhaled Oxygen Concentration - - Weight 94.8 kg (209 lb) 05/24/2022 10:31 PM EDT Height 167.6 cm (5' 6 ) 05/24/2022 10:31 PM EDT Body Mass Index 33.73 05/24/2022 10:31 PM EDT Plan of Treatment Health Maintenance Due Date Last Done Comments DEPRESSION SCREENING 2001 HEPATITIS C SCREENING 2007 HIV ONE-TIME SCREENING (18-6 5 YEARS) 2007 PNEUMOCOCCAL VACCINES (0-49 years) (1 of 2 - PCV) 2008 PAP SMEAR 2010 INFLUENZA VACCINE (#1) 2025 09/09/2015 COVID-19 VACCINE (3 - 2024-2 6 season) 2025 07/10/2021, 06/19/2021 Adult Td,Tdap Booster 08/22/2028 08/22/2018 SMOKING STATUS SCREENING (On ce After 26 Yrs) Completed 04/30/2022 HEPATITIS A VACCINES Aged Out No long er eligible based on patient's age to complete this topic HIB VACCINES Aged Out No longer eligi ble based on patient's age to complete this topic MENINGOCOCCAL VACCINES (ACWY) Aged Out No longer eligible based on patient's age to complete this topic MENINGOCOCCAL VACCINES (B) Aged Out N o longer eligible based on patient's age to complete this topic Medical Devices Not on file Insurance [facility] NON NSPG PCP SILVER CLARITY CONNECTORCARE [facility] NON NSPG PCP [place] CLARITY CONNECTORCARE [employer] NON NSPG PCP SILVER CLARITY CONNECTORCARE [facility] NON NSPG PCP SILVER CLARITY CONNECTORCARE [facility] NON NSPG PCP S[facility] CLARITY [facility] P[facility] [place] CONNECTORCARE CIG[employer] DENTAL Care Teams Histotechnologist Relationship Specialty Start Date End Date Raquel Sousa MD [address] [place] [address] PCP - General Internal Medicine 03/11/21 Chavez Thomas MD [address] [place] [phone] [email or web address] Primary Oncologist Medical Oncology 09/08/21 Sophie York RN [address] [place] [phone] [email or web address] Nurse Navigator 09/15/21 Additional Source Comments The information contained in this document represents components of the legal health record. It is not the complete legal health record.[facility]
--- OUTSIDE RECORDS SUMMARY | 2025-09-03 19:14 | XMS_ITS | Encounter Summary ---
Author Organization [facility] Address [address] [place] [address] Phone Care Team Providers Care Shirt Maker Name Role Phone Raquel Sousa MD Primary Care Provid er Chavez Thomas MD Unavailable [phone] Sophie York RN Unavailable [phone] Encounter Details Date Type Department Care Team (Late st Contact Info) Description 11/10/2021 Procedure Pass [address] [address] Social History Tobacco Use Types Packs/Day Years [...] on filedocumented in this encounter Care Teams Shirt Maker Relationship Specialty Start Date End Date Raquel Sousa MD [address] [place] [address] PCP - General Internal Medicine 03/11/21 Chavez Thomas MD [address] [place] [address] Primary Oncologist Medical Oncology 09/08/21 oSphie York, RN [address] [place] [address] [email or web address] Nurse Navigator 09/15/21 documented as of this encounter Additional Source Comments The information contained in this document represents components of the legal health record. It is not the complete legal health record.[facility]
== END 2025-09-03 15:23 | disposition home or self-care (01) ==
LOC: HO.HMCH 14:20
PROVIDERS: PCP Internal Medicine; Visit Provider Internal Medicine
DX: Z00.00 Encounter for general adult medical examination without abnormal findings (principal); F32.0 Major depressive disorder, single episode, mild; R76.89 Other specified abnormal immunological findings in serum

== ENCOUNTER → 2025-09-03 14:19 | Outpatient (BNVA) | payer OTHER, SELFPAY | PROVIDERS: PCP Internal Medicine; Visit Provider Internal Medicine | DX: Z00.00 Encounter for general adult medical examination without abnormal findings (principal); L30.9 Dermatitis, unspecified; F41.0 Panic disorder [episodic paroxysmal anxiety]; F32.0 Major depressive disorder, single episode, mild; R76.89 Other specified abnormal immunological findings in serum; Z85.3 Personal history of malignant neoplasm of breast | CPT/HCPCS: 96127; 99395 ==

== ENCOUNTER 2025-10-02 10:59 | Outpatient (REF) | payer OTHER, SELFPAY ==
[2025-10-02 22:30] LABS: Bacterial Vaginosis PCR NEGATIVE (Negative); Candida Group PCR NOT DETECTED (Not Detect); Candida glab krusei PCR NOT DETECTED (Not Detect); Trichomonas vaginalis PCR NOT DETECTED (Not Detect)
[2025-10-02 23:01] LABS: CT PCR NOT DETECTED (Not Detect.); NG PCR NOT DETECTED (Not Detect.)
== END 2025-10-02 11:00 | disposition home or self-care (01) ==
LOC: HO.LNP 10:59
PROVIDERS: PCP Internal Medicine; Visit Provider Advanced Practice Midwife
DX: Z01.419 Encounter for gynecological examination (general) (routine) without abnormal findings (principal); Z01.84 Encounter for antibody response examination; Z30.09 Encounter for other general counseling and advice on contraception; R53.83 Other fatigue; Z20.2 Contact with and (suspected) exposure to infections with a predominantly sexual mode of transmission; E55.9 Vitamin D deficiency, unspecified; Z87.42 Personal history of other diseases of the female genital tract; Z85.3 Personal history of malignant neoplasm of breast
CPT/HCPCS: 81515; 87491; 87591